=== PATIENT | female | born 1935 | race Caucasian/White ===

== ENCOUNTER 2016-05-13 17:25 | Inpatient (IN) | payer OTHER ==
--- NOTE | 2016-05-13 17:29 | PDOC ---
History of Present Illness <Harpreet Castillo - Last Filed: 05/13/16 17:28> - General History Source: Spouse (.) Exam Limitations: Language Barrier - History of Present Illness Initial Comments: 05/13/16 18:37 The patient is a 81 year old female, BIBA, with a significant past medical history of afib (on eliquis), HTN, hypercholesterolemia, kidney stones, COPD, thyroid disease, CAD s/p stent, who presents to the emergency department with SOB and cough for about 2 days. notes the patient has had difficulty breathing. notes being sick with a cough recently, now resolved. She denies any chest pain. She denies fever, chills, headache and dizziness. She denies nausea, vomit, diarrhea and constipation. Patient is kazakh speaking. Allergies: As per Nursing notes Social history: Nonsmoker. PCP: <Kevin Huitron - Last Filed: 05/13/16 18:46> <Milton Tijerina - Last Filed: 05/14/16 19:06> - General Stated Complaint: SHORTNESS OF BREATH Time Seen by Provider: 05/13/16 17:27 Past History - Past Medical History Cardiac Disorders: Yes (A-FIB) HTN: Yes Hypercholesterolemia: Yes Kidney Stones: Yes Thyroid Disease: Yes - Surgical History Appendectomy: Yes - Psycho/Social/Smoking Cessation Hx Anxiety: No Suicidal Ideation: No Smoking Status: No Smoking History: Never smoked Number of Cigarettes Smoked Daily: 0 Hx Alcohol Use: No Drug/Substance Use Hx: No Substance Use Type: None <Harpreet Castillo - Last Filed: 05/13/16 17:28> <Kevin Huitron - Last Filed: 05/13/16 18:46> <Milton Tijerina - Last Filed: 05/14/16 19:06> - Past Medical History Allergies/Adverse Reactions: Allergies Allergy/AdvReac Type Severity Reaction Status Date / Time shrimp Allergy Verified 05/13/16 17:41 IV DYE Allergy Uncoded 05/13/16 17:41 SHRIMP Allergy Uncoded 05/13/16 17:41 Home Medications: Ambulatory Orders Aspirin [ASA -] 81 mg PO DAILY 11/20/13 Methimazole 10 mg PO DAILY 11/20/13 Apixaban [Eliquis] 5 mg PO BID 01/15/16 Digoxin [Lanoxin -] 0.125 mg PO DAILY tablet 01/24/16 Chlorthalidone 25 mg PO DAILY 05/13/16 Metoprolol Succinate [Toprol XL -] 100 mg PO BID 05/13/16 Rosuvastatin Calcium [Crestor] 5 mg PO HS 05/13/16 Review of Systems - Review of Systems Able to Perform ROS?: Yes Comments:: 05/13/16 18:37 GENERAL/CONSTITUTIONAL: No fever or chills. No weakness. HEAD, EYES, EARS, NOSE AND THROAT: No change in vision. No ear pain or discharge. No sore throat. CARDIOVASCULAR: No chest pain Yes: shortness of breath and cough. RESPIRATORY: No cough, wheezing, or hemoptysis. GASTROINTESTINAL: No nausea, vomiting, diarrhea or constipation. GENITOURINARY: No dysuria, frequency, or change in urination. MUSCULOSKELETAL: No joint or muscle swelling or pain. No neck or back pain. SKIN: No rash NEUROLOGIC: No headache, vertigo, loss of consciousness, or change in strength/ sensation. ENDOCRINE: No increased thirst. No abnormal weight change. HEMATOLOGIC/LYMPHATIC: No anemia, easy bleeding, or history of blood clots. ALLERGIC/IMMUNOLOGIC: No hives or skin allergy. <Kevin Huitron - Last Filed: 05/13/16 18:46> *Physical Exam - Physical Exam Comments: 05/13/16 18:46 GENERAL: Awake, alert, and fully oriented, in no acute distress HEAD: No signs of trauma EYES: PERRLA, EOMI, sclera anicteric, conjunctiva clear ENT: Auricles normal inspection, hearing grossly normal, nares patent, oropharynx clear without exudates. Moist mucosa NECK: (+)JVD. Normal ROM, supple, no lymphadenopathy. LUNGS: Fine crackles posteriorly and wheezing throughout all lung calderon. HEART: Regular rate and rhythm, normal S1 and S2, no murmurs, rubs or gallops ABDOMEN: Soft, nontender, normoactive bowel sounds. No guarding, no rebound. No masses EXTREMITIES: Normal range of motion, no edema. No clubbing or cyanosis. No cords, erythema, or tenderness NEUROLOGICAL: Cranial nerves II through XII grossly intact. Normal speech, normal gait SKIN: Warm, Dry, normal turgor, no rashes or lesions noted. <[place],Kevin - Last Filed: 05/13/16 18:46> - Vital Signs Last Vital Signs Temp Pulse Resp BP Pulse Ox 99.9 F H 115 H 30 H 156/86 100 05/13/16 20:40 05/13/16 20:25 05/13/16 20:25 05/13/16 20:25 05/13/16 20:25 <Milton Tijerina - Last Filed: 05/14/16 19:06> ED Treatment Course - LABORATORY CBC & Chemistry Diagram: 05/14/16 06:00 05/14/16 06:00 - ADDITIONAL ORDERS Additional order review: Laboratory Results 05/13/16 05/13/16 05/13/16 20:48 20:48 20:48 INR 1.48 H Sodium 140 Potassium 3.9 Chloride 102 Carbon Dioxide 29 Anion Gap 9 BUN 21 H Creatinine 0.8 Creat Clearance w eGFR > 60 Random Glucose 124 H Lactic Acid Calcium 9.0 Magnesium Total Bilirubin 0.5 D AST 20 D ALT 18 D Alkaline Phosphatase 96 Creatine Kinase 46 Troponin I < 0.02 B-Natriuretic Peptide 2686.74 H Total Protein 6.7 Albumin 3.6 Blood Type Antibody Screen Spec Expiration Date 05/13/16 05/13/16 05/13/16 19:10 19:10 19:10 INR Sodium Cancelled Potassium Cancelled Chloride Cancelled Carbon Dioxide Cancelled Anion Gap Cancelled BUN Cancelled Creatinine Cancelled Creat Clearance w eGFR Cancelled Random Glucose Cancelled Lactic Acid 0.915 Calcium Cancelled Magnesium Cancelled Total Bilirubin Cancelled AST Cancelled ALT Cancelled Alkaline Phosphatase Cancelled Creatine Kinase Cancelled Troponin I Cancelled B-Natriuretic Peptide Cancelled Total Protein Cancelled Albumin Cancelled Blood Type Cancelled Antibody Screen Cancelled Spec Expiration Date Cancelled 05/13/16 19:10 INR 1.59 H Sodium Potassium Chloride Carbon Dioxide Anion Gap BUN Creatinine Creat Clearance w eGFR Random Glucose Lactic Acid Calcium Magnesium Total Bilirubin AST ALT Alkaline Phosphatase Creatine Kinase Troponin I B-Natriuretic Peptide Total Protein Albumin Blood Type Antibody Screen Spec Expiration Date 05/13/16 19:10 RBC 4.18 MCV 89.0 MCHC 32.9 RDW 14.2 MPV 8.9 Neutrophils % 61.4 D Lymphocytes % 22.4 D Monocytes % 10.5 H D Eosinophils % 3.7 D Basophils % 2.0 - RADIOLOGY Radiology Studies Ordered: Category Date Time Status CHEST X-RAY PORTABLE* [RAD] Stat Radiology 05/13/16 20:16 Taken - Medications Given in the ED: ED Medications Discontinued Medications Generic Name Dose Route Start Last Admin Trade Name Larry PRN Reason Stop Dose Admin Albuterol/Ipratropium 1 amp 05/13/16 18:46 05/13/16 20:12 Duoneb - NEB 05/13/16 18:47 1 amp ONCE ONE Administration Albuterol/Ipratropium 1 amp 05/13/16 20:16 05/13/16 20:37 Duoneb - NEB 05/13/16 20:17 1 amp ONCE STA Administration Albuterol/Ipratropium 1 amp 05/13/16 20:16 05/13/16 20:37 Duoneb - NEB 05/13/16 20:17 1 amp ONCE STA Administration Sodium Chloride 500 mls @ 500 mls/hr 05/13/16 18:44 05/13/16 20:12 Normal Saline - IV 05/13/16 19:43 500 mls/hr ASDIR STA Administration Magnesium Sulfate 1 gm 05/13/16 20:16 05/13/16 20:37 Magnesium Sulfate IVPB 05/13/16 20:17 1 gm ONCE ONE Administration Magnesium Sulfate 1 gm 05/13/16 20:25 05/13/16 20:37 Magnesium Sulfate IVPB 05/13/16 20:26 1 gm ONCE ONE Administration Methylprednisolone Sodium Succinate 125 mg 05/13/16 18:46 05/13/16 20:12 Solu-Medrol - IVPUSH 05/13/16 18:47 125 mg ONCE ONE Administration <Milton Tijerina - Last Filed: 05/14/16 19:06> *DC/Admit/Observation/Transfer <Harpreet Castillo - Last Filed: 05/13/16 17:28> - Attestations Scribe Attestion: 05/13/16 17:39 Documentation prepared by Kevin Huitron, acting as medical director/head team physician for Harpreet Castillo DO. <Kevin Huitron - Last Filed: 05/13/16 18:46> <Milton Tijerina - Last Filed: 05/14/16 19:06> Diagnosis at time of Disposition: Shortness of breath, Chest pain - Referrals
[2016-05-13 17:42] VITALS: BMI 26.4
[2016-05-13] MEDS ORDERED: SODIUM CHLORIDE 500 ML IV STA (18:44)
[2016-05-13] MEDS ORDERED: methylPREDNISolone NA SUCC 125 MG/2 ML VIAL IVPUSH ONE (18:46)
[2016-05-13] MEDS ORDERED: ALBUTEROL SO4 2.5/IPRATROPIUM 0.5 INH SOL 3 ML VIAL.NEB. NEB ONE ×2 (18:46→19:56)
[2016-05-13 19:20] LABS: EOSINOPHIL 3.7 % (0-4.5); MCH 29.3 pg (25.7-33.7); MCHC 32.9 g/dl (32.0-36.0); MEAN PLT VOLUME 8.9 fl (7.5-11.1); NEUTROPHILS 61.4 % (42.8-82.8); PLATELET COUNT 232 K/MM3 (134-434); RDW 14.2 % (11.6-15.6); WHITE BLOOD COUNT 6.8 K/mm3 (4.0-10.0)
[2016-05-13 19:32] LABS: INR 1.59 (0.82-1.09); PROTHROMBIN TIME (PATIENT) 17.7 SEC (9.98-11.88)
[2016-05-13] MEDS ORDERED: methylPREDNISolone NA SUCC 125 MG/2 ML VIAL ONE (19:57)
[2016-05-13] MEDS ORDERED: MAGNESIUM SULF 50% (8.12 MEQ/2 ML-1 GM VIAL) IVPB ONE ×2 (20:16→20:25)
[2016-05-13] MEDS ORDERED: ALBUTEROL SO4 2.5/IPRATROPIUM 0.5 INH SOL 3 ML VIAL.NEB. NEB STA ×2 (20:16)
[2016-05-13] MEDS ORDERED: MAGNESIUM SULF 50% (8.12 MEQ/2 ML-1 GM VIAL) ONE (20:22)
[2016-05-13 21:21] LABS: INR 1.48 (0.82-1.09); PROTHROMBIN TIME (PATIENT) 16.4 SEC (9.98-11.88)
[2016-05-13 21:41] LABS: ALBUMIN 3.6 g/dl (3.4-5.0); ANION GAP 9 (8-16); BILIRUBIN,TOTAL 0.5 mg/dL (0.2-1.0); CO2 29 mmol/L (21-32); CREATININE 0.8 mg/dL (0.55-1.02); GLUCOSE,RANDOM 124 mg/dL (74-106); SGOT/AST 20 U/L (15-37); SGPT/ALT 18 U/L (12-78); TOT PROT 6.7 g/dl (6.4-8.2)
[2016-05-13 21:44] LABS: ALK PHOS 96 U/L (45-117); TROPONIN I < 0.02 ng/ml (0.00-0.05)
[2016-05-13] MEDS ORDERED: FUROSEMIDE 40 MG/4 ML INJECTABLE VIAL IVPUSH ONE (22:21)
--- NOTE | 2016-05-13 22:44 | PDOC ---
*Physical Exam - Vital Signs Last Vital Signs Temp Pulse Resp BP Pulse Ox 99.9 F H 115 H 30 H 156/86 100 05/13/16 20:40 05/13/16 20:25 05/13/16 20:25 05/13/16 20:25 05/13/16 20:25 ED Treatment Course - LABORATORY CBC & Chemistry Diagram: 05/13/16 19:10 05/13/16 20:48 - ADDITIONAL ORDERS Additional order review: Laboratory Results 05/13/16 05/13/16 05/13/16 20:48 20:48 20:48 INR 1.48 H Sodium 140 Potassium 3.9 Chloride 102 Carbon Dioxide 29 Anion Gap 9 BUN 21 H Creatinine 0.8 Creat Clearance w eGFR > 60 Random Glucose 124 H Lactic Acid Calcium 9.0 Magnesium Total Bilirubin 0.5 D AST 20 D ALT 18 D Alkaline Phosphatase 96 Creatine Kinase 46 Troponin I < 0.02 B-Natriuretic Peptide 2686.74 H Total Protein 6.7 Albumin 3.6 Blood Type Antibody Screen Spec Expiration Date 05/13/16 05/13/16 05/13/16 19:10 19:10 19:10 INR Sodium Cancelled Potassium Cancelled Chloride Cancelled Carbon Dioxide Cancelled Anion Gap Cancelled BUN Cancelled Creatinine Cancelled Creat Clearance w eGFR Cancelled Random Glucose Cancelled Lactic Acid 0.915 Calcium Cancelled Magnesium Cancelled Total Bilirubin Cancelled AST Cancelled ALT Cancelled Alkaline Phosphatase Cancelled Creatine Kinase Cancelled Troponin I Cancelled B-Natriuretic Peptide Cancelled Total Protein Cancelled Albumin Cancelled Blood Type Cancelled Antibody Screen Cancelled Spec Expiration Date Cancelled 05/13/16 19:10 INR 1.59 H Sodium Potassium Chloride Carbon Dioxide Anion Gap BUN Creatinine Creat Clearance w eGFR Random Glucose Lactic Acid Calcium Magnesium Total Bilirubin AST ALT Alkaline Phosphatase Creatine Kinase Troponin I B-Natriuretic Peptide Total Protein Albumin Blood Type Antibody Screen Spec Expiration Date 05/13/16 19:10 RBC 4.18 MCV 89.0 MCHC 32.9 RDW 14.2 MPV 8.9 Neutrophils % 61.4 D Lymphocytes % 22.4 D Monocytes % 10.5 H D Eosinophils % 3.7 D Basophils % 2.0 - RADIOLOGY Radiology Studies Ordered: Category Date Time Status CHEST X-RAY PORTABLE* [RAD] Stat Radiology 05/13/16 20:16 Taken - Medications Given in the ED: ED Medications Discontinued Medications Generic Name Dose Route Start Last Admin Trade Name Larry PRN Reason Stop Dose Admin Albuterol/Ipratropium 1 amp 05/13/16 18:46 05/13/16 20:12 Duoneb - NEB 05/13/16 18:47 1 amp ONCE ONE Administration Albuterol/Ipratropium 1 amp 05/13/16 20:16 05/13/16 20:37 Duoneb - NEB 05/13/16 20:17 1 amp ONCE STA Administration Albuterol/Ipratropium 1 amp 05/13/16 20:16 05/13/16 20:37 Duoneb - NEB 05/13/16 20:17 1 amp ONCE STA Administration Sodium Chloride 500 mls @ 500 mls/hr 05/13/16 18:44 05/13/16 20:12 Normal Saline - IV 05/13/16 19:43 500 mls/hr ASDIR STA Administration Magnesium Sulfate 1 gm 05/13/16 20:16 05/13/16 20:37 Magnesium Sulfate IVPB 05/13/16 20:17 1 gm ONCE ONE Administration Magnesium Sulfate 1 gm 05/13/16 20:25 05/13/16 20:37 Magnesium Sulfate IVPB 05/13/16 20:26 1 gm ONCE ONE Administration Methylprednisolone Sodium Succinate 125 mg 05/13/16 18:46 05/13/16 20:12 Solu-Medrol - IVPUSH 05/13/16 18:47 125 mg ONCE ONE Administration *DC/Admit/Observation/Transfer Diagnosis at time of Disposition: Shortness of breath, Chest pain - Discharge Dispostion Condition at time of disposition: Stable Admit: Yes - Referrals Referrals: Selvin Rios MD [Primary Care Provider] - - Patient Instructions - Post Discharge Activity
[2016-05-13] MEDS ORDERED: FUROSEMIDE 40 MG/4 ML INJECTABLE VIAL ONE (22:50)
[2016-05-13] MEDS ORDERED: ACETAMINOPHEN 325 MG TABLET (FP) PO PRN (23:08)
[2016-05-14] MEDS: ALBUTEROL SO4 2.5/IPRATROPIUM 0.5 INH SOL 3 ML VIAL.NEB. NEB SCH ×4 (00:50→18:07)
[2016-05-14] MEDS ORDERED: dilTIAZem HCL 50 MG/10 ML - 10 ML VIAL IVPUSH ONE (02:30)
[2016-05-14] MEDS ORDERED: dilTIAZem HCL 125 MG/25 ML - 25 ML VIAL ONE (02:36)
[2016-05-14] MEDS ORDERED: ALBUTEROL SO4 2.5/IPRATROPIUM 0.5 INH SOL 3 ML VIAL.NEB. NEB ONE ×3 (06:14→17:11)
[2016-05-14 07:17] LABS: BASOPHIL 0.2 % (0-2.0); MCH 29.5 pg (25.7-33.7); MCHC 33.5 g/dl (32.0-36.0); MEAN CELL VOLUME 88.1 fl (80-96); MEAN PLT VOLUME 8.5 fl (7.5-11.1); NEUTROPHILS 89.2 % (42.8-82.8); PLATELET COUNT 221 K/MM3 (134-434); RDW 14.4 % (11.6-15.6); WHITE BLOOD COUNT 7.3 K/mm3 (4.0-10.0)
[2016-05-14 07:40] LABS: ALBUMIN 3.5 g/dl (3.4-5.0); BILIRUBIN,TOTAL 0.6 mg/dL (0.2-1.0); CALCIUM 8.7 mg/dL (8.5-10.1); MAGNESIUM 1.9 mg/dL (1.8-2.4); TOT PROT 6.7 g/dl (6.4-8.2)
--- NOTE | 2016-05-14 09:20 | CON.CARD ---
Cardiology Consult (text) - Consultation Consultation Note: CC: sob, cough hpi: 81 yo f with h/o CAD s/p pRCA BETHANIE 09/2011 for unstable angina (CP/EDWARDS) and later BETHANIE to pLAD and mLAD 10/2011, paroxysmal atrial fibrillation, HTN, HL, diastolic dysfunction, Mild AR/MR, mild pHTN who presents with sob/cough. Past two days with cough and sob. No cp, palps, dizzy, loc, pnd, orthopnea, le edema. Went to pmd yesterday and sent to ER for eval for PNA/URI. Sleeve Ironer: Dr. Weir PMHx: per hpi. Additionally MGUS, COPD by PFTs (mild obstructive disease-not on inhalers), IGT, gastritis/GERD, multinodular goiter, pancreatic cyst, kidney stones Past surg hx: per hpi fam hx: No fam hx of cardiac disease social hx: never tob, no etoh or illicits ros: per hpi; no nvd, fever, quesada, vision changes, hematuria, gib, muscle pain meds: Ambulatory Orders Aspirin [ASA -] 81 mg PO DAILY 11/20/13 Methimazole 10 mg PO DAILY 11/20/13 Apixaban [Eliquis] 5 mg PO BID 01/15/16 Digoxin [Lanoxin -] 0.125 mg PO DAILY tablet 01/24/16 Chlorthalidone 25 mg PO DAILY 05/13/16 Metoprolol Succinate [Toprol XL -] 100 mg PO BID 05/13/16 Rosuvastatin Calcium [Crestor] 5 mg PO HS 05/13/16 pe: Vital Signs Period Temp Pulse Resp BP Sys/Padilla Pulse Ox Last 24 Hr 97.7 F-99.9 F 72-147 20-30 94-156/60-102 92-100 NAD, calm JVD flat, neck supple cta bl nl eff irregular rhythm, tachycardic. nl s1, s2 No m/r/g + bs soft nt nd, obese ext without e/c/c no jaundice, diaphoresis aaox3 pos dp pt no carotid bruits Laboratory Last Values WBC 7.3 K/mm3 (4.0-10.0) 05/14/16 06:00 RBC 4.04 M/mm3 (3.60-5.2) 05/14/16 06:00 Hgb 11.9 GM/dL (10.7-15.3) 05/14/16 06:00 Hct 35.6 % (32.4-45.2) 05/14/16 06:00 MCV 88.1 fl (80-96) 05/14/16 06:00 MCHC 33.5 g/dl (32.0-36.0) 05/14/16 06:00 RDW 14.4 % (11.6-15.6) 05/14/16 06:00 Plt Count 221 K/MM3 (134-434) 05/14/16 06:00 MPV 8.5 fl (7.5-11.1) 05/14/16 06:00 Neutrophils % 89.2 % (42.8-82.8) H D 05/14/16 06:00 Lymphocytes % 9.6 % (8-40) D 05/14/16 06:00 Monocytes % 1.0 % (3.8-10.2) L D 05/14/16 06:00 Eosinophils % 0.0 % (0-4.5) D 05/14/16 06:00 Basophils % 0.2 % (0-2.0) 05/14/16 06:00 INR 1.48 (0.82-1.09) H 05/13/16 20:48 Sodium 138 mmol/L (136-145) 05/14/16 06:00 Potassium 3.2 mmol/L (3.5-5.1) L 05/14/16 06:00 Chloride 98 mmol/L (98-107) 05/14/16 06:00 Carbon Dioxide 28 mmol/L (21-32) 05/14/16 06:00 Anion Gap 12 (8-16) 05/14/16 06:00 BUN 22 mg/dL (7-18) H 05/14/16 06:00 Creatinine 1.0 mg/dL (0.55-1.02) D 05/14/16 06:00 Creat Clearance w eGFR 53.21 (>60) 05/14/16 06:00 Random Glucose 248 mg/dL (74-106) H D 05/14/16 06:00 Lactic Acid 0.915 mmol/L (0.4-2.0) 05/13/16 19:10 Calcium 8.7 mg/dL (8.5-10.1) 05/14/16 06:00 Magnesium 1.9 mg/dL (1.8-2.4) 05/14/16 06:00 Total Bilirubin 0.6 mg/dL (0.2-1.0) 05/14/16 06:00 AST 13 U/L (15-37) L D 05/14/16 06:00 ALT 17 U/L (12-78) 05/14/16 06:00 Alkaline Phosphatase 92 U/L (45-117) 05/14/16 06:00 Creatine Kinase 46 IU/L (26-192) 05/13/16 20:48 Troponin I < 0.02 ng/ml (0.00-0.05) 05/13/16 20:48 B-Natriuretic Peptide 2686.74 pg/ml (5-450) H 05/13/16 20:48 Total Protein 6.7 g/dl (6.4-8.2) 05/14/16 06:00 Albumin 3.5 g/dl (3.4-5.0) 05/14/16 06:00 TSH 0.99 uIU/ml (0.358-3.74) D 05/14/16 06:00 Blood Type Cancelled 05/13/16 19:10 Antibody Screen Cancelled 05/13/16 19:10 Spec Expiration Date Cancelled 05/13/16 19:10 EKG 05/13/16: Afib, VR 127, nl qtc, non-specific ST changes. Similar to priors when in RVR. cxr: clear lungs Echo 08/2015: Nl lv/rv. EF 65-70%. E to A reversal. Mild Lae. 1+ AR/MR. No RVSP Pharm Stress MPI 2015: No ischemia. Nl EF. PFTs 2014: FEV1/FVC normal, mildly decreased FEV1, decreased FVC, normal TLC, mildly decreased DLCO consistent with obstructive process, possible emphysema Cath/PCI 09/2011: pRCA 80-90% -->BETHANIE, mLAD 60-70%, dLAD 60-70% + FFR, D1 mild diffuse disease Cath/PCI 10/2011: pLAD rota BETHANIE and mLAD rota BETHANIE. 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 sob, cough: -does not appear grossly vol overloaded on exam or imaging -can cont with trial of low dose iv lasix to see if helps sob, monitor daily chem7, low threshold to dc lasix if appears dry/prerenal. has not needed maintenance lasix at home. -consider URI? as another etiology of current sob/cough paroxysmal Atrial fibrillation: -in afib here with occasional rvr, cont toprol and monitor on tele. was getting 200 qam and 100 qhs at home recently so may need to increase to this if hr remains fast - cont dig as well - cont eliquis CAD s/p stent x 3: - no cp, no signs acs - cont home statin, asa, bb Hypertension: - cont home bb - holding home chlorthalidone 25 qd while getting iv lasix Hyperlipidemia, - continue crestor. 1+ MR/AR: - No signs of valvular decompensation
[2016-05-14] MEDS ORDERED: FUROSEMIDE 40 MG/4 ML INJECTABLE VIAL IVPB SCH (10:00)
--- NOTE | 2016-05-14 10:29 | EKG ---
Test Reason : Blood Pressure : / mmHG Vent. Rate : 138 BPM Atrial Rate : 166 BPM P-R Int : 000 ms QRS Dur : 066 ms QT Int : 292 ms P-R-T Axes : 000 041 -81 degrees QTc Int : 442 ms ATRIAL FIBRILLATION WITH RAPID VENTRICULAR RESPONSE NONSPECIFIC ST AND T WAVE ABNORMALITY ABNORMAL ECG WHEN COMPARED WITH ECG OF 13-MAY-2016 21:52, T WAVE INVERSION NO LONGER EVIDENT IN ANTERIOR LEADS Confirmed by JACKI ALTMAN, BETH ([id number]) on 05/14/2016 10:29:24 AM Referred By: Confirmed By:BETH ECHEVERRIA MD
--- NOTE | 2016-05-14 10:35 | EKG ---
Test Reason : Blood Pressure : / mmHG Vent. Rate : 127 BPM Atrial Rate : 166 BPM P-R Int : 000 ms QRS Dur : 070 ms QT Int : 264 ms P-R-T Axes : 000 040 248 degrees QTc Int : 383 ms ATRIAL FIBRILLATION WITH RAPID VENTRICULAR RESPONSE ABNORMAL ECG WHEN COMPARED WITH ECG OF 15-JAN-2016 10:05, NO SIGNIFICANT CHANGE WAS FOUND Confirmed by BETH ECHEVERRIA MD ([id number]) on 05/14/2016 10:34:30 AM Referred By: Confirmed By:BETH ECHEVERRIA MD
[2016-05-14] MEDS: ASPIRIN 81 MG CHEWABLE TABLETS PO SCH (10:53)
[2016-05-14] MEDS: APIXABAN 5 MG TABLET PO SCH ×2 (10:53→22:22)
[2016-05-14] MEDS: PANTOPRAZOLE 40 MG TABLET (FP) PO SCH (10:53)
[2016-05-14] MEDS: DIGOXIN 0.125 MG TABLET (FP) PO SCH (10:53)
[2016-05-14] MEDS: METHIMAZOLE 10 MG TABLET (FP) PO SCH (10:54)
[2016-05-14] MEDS: METOPROLOL SUCCINATE 100 MG TAB.SR.24H (FP) PO SCH ×2 (10:54→22:22)
--- NOTE | 2016-05-14 11:49 | HP ---
Admitting History and Physical - Primary Care Physician PCP: Selvin Rios - Admission Chief Complaint: Wheezing History of Present Illness: Ms Cartagena is a very pleasant 81 year old female who comes in with shortness of breath and wheezing. She says it began about two days ago. She had an unproductive cough with this. She was short of breath at rest and with exertion. She hears wheezing when breathing. She denies sick contacts, fevers, chills, chest pain, abdominal pain, nausea, vomiting, diarrhea, constipation, difficulty or pain on urination, or swelling. Currently she is feeling improved. History Source: Patient, Family Member Limitations to Obtaining History: Language Barrier - Past Medical History Cardiovascular: Yes: AFIB, CAD, HTN, Hyperlipdemia Gastrointestinal: Yes: Gastritis, GERD. No: GI Bleed, Peptic Ulcer Disease Endocrine: Yes: Hyperthyroidism - Past Surgical History Past Surgical History: Yes: None - Smoking History Smoking history: Never smoked Aproximately how many cigarettes per day: 0 - Alcohol/Substance Use Hx Alcohol Use: No History of Substance Use: reports: None - Social History Usual Living Arrangement: Yes: With Spouse ADL: Independent History of Recent Travel: No Home Medications - Allergies Allergies/Adverse Reactions: Allergies Allergy/AdvReac Type Severity Reaction Status Date / Time shrimp Allergy Verified 05/13/16 17:41 IV DYE Allergy Uncoded 05/13/16 17:41 SHRIMP Allergy Uncoded 05/13/16 17:41 - Home Medications Home Medications: Ambulatory Orders Aspirin [ASA -] 81 mg PO DAILY 11/20/13 Methimazole 10 mg PO DAILY 11/20/13 Apixaban [Eliquis] 5 mg PO BID 01/15/16 Digoxin [Lanoxin -] 0.125 mg PO DAILY tablet 01/24/16 Chlorthalidone 25 mg PO DAILY 05/13/16 Metoprolol Succinate [Toprol XL -] 100 mg PO BID 05/13/16 Rosuvastatin Calcium [Crestor] 5 mg PO HS 05/13/16 Family Disease History - Family Disease History Family History: Unremarkable Review of Systems Findings/Remarks: Full review of systems obtained, as per HPI and otherwise negative Physical Examination Vital Signs: Vital Signs Temperature 98.5 F 05/14/16 05:15 Pulse Rate 116 H 05/14/16 06:00 Respiratory Rate 20 05/14/16 06:00 Blood Pressure 129/77 05/14/16 06:00 O2 Sat by Pulse Oximetry (%) 100 05/14/16 06:00 Constitutional: Yes: Well Nourished, No Distress, Calm Eyes: Yes: Conjunctiva Clear, EOM Intact HENT: Yes: Atraumatic, Normocephalic Cardiovascular: Yes: Tachycardia, Pulse Irregular. No: Gallop, Murmur, Rub Respiratory: Yes: Regular, Wheezes. No: Rales, Rhonchi Gastrointestinal: Yes: Normal Bowel Sounds, Soft. No: Distention, Tenderness Extremities: Yes: WNL Edema: No Labs: CBC, BMP 05/14/16 06:00 05/14/16 06:00 Problem List - Problems (1) COPD (chronic obstructive pulmonary disease) Assessment/Plan: -patient presents with acute exacerbation -admit to the hospital -will hold on antibiotics at this time -will check influenza and respiratory viral panel -pulmonary consult -continue duonebs -pulmonary consulted and decide on steroids Code(s): J44.9 - CHRONIC OBSTRUCTIVE PULMONARY DISEASE, UNSPECIFIED Qualifiers : COPD type: COPD with acute exacerbation Qualified Code(s): J44.1 - Chronic obstructive pulmonary disease with (acute) exacerbation (2) Atrial fibrillation with rapid ventricular response Assessment/Plan: -cardiology consulted -continue digoxin and toprol xl -continue eliquis Code(s): I48.91 - UNSPECIFIED ATRIAL FIBRILLATION (3) HLD (hyperlipidemia) Assessment/Plan: -continue crestor Code(s): E78.5 - HYPERLIPIDEMIA, UNSPECIFIED (4) HTN (hypertension) Assessment/Plan: -continue toprol xl Code(s): I10 - ESSENTIAL (PRIMARY) HYPERTENSION (5) Hyperthyroidism Assessment/Plan: -continue tapazole -check TSH and FT4 Code(s): E05.90 - THYROTOXICOSIS, UNSP WITHOUT THYROTOXIC CRISIS OR STORM
--- NOTE | 2016-05-14 14:17 | PN ---
Progress Note (short form) - Note Progress Note: PULMONARY CONSULTATION DICTATED 05/14/16 IMP ASTHMATIC BRONCHITIS CHF COPD BY PFTS AFIB ASHD S/P STENT PULMONARY HTN MGUS PLAN IV STEROIDS INHALED BRONCHODILATORS LASIX ANTICOAGULATION O2 RATE CONTROL DR BUSTOS Problem List - Problems (1) Shortness of breath Code(s): R06.02 - SHORTNESS OF BREATH (2) ASHD (arteriosclerotic heart disease) Code(s): I25.10 - ATHSCL HEART DISEASE OF [place] CORONARY ARTERY W/O ANG PCTRS (3) Afib Code(s): I48.91 - UNSPECIFIED ATRIAL FIBRILLATION (4) Atrial fibrillation with rapid ventricular response Code(s): I48.91 - UNSPECIFIED ATRIAL FIBRILLATION (5) HLD (hyperlipidemia) Code(s): E78.5 - HYPERLIPIDEMIA, UNSPECIFIED (6) HTN (hypertension) Code(s): I10 - ESSENTIAL (PRIMARY) HYPERTENSION (7) Asthmatic bronchitis Code(s): J45.909 - UNSPECIFIED ASTHMA, UNCOMPLICATED (8) COPD (chronic obstructive pulmonary disease) Code(s): J44.9 - CHRONIC OBSTRUCTIVE PULMONARY DISEASE, UNSPECIFIED
[2016-05-14] MEDS: methylPREDNISolone NA SUCC 40 MG/1 ML VIAL IVPB SCH ×2 (16:00→21:22)
--- NOTE | 2016-05-14 16:02 | CONS ---
PULMONARY CONSULTATION DATE OF CONSULTATION: 05/14/2016 REFERRING PHYSICIAN: Glenn Cummings MD The patient is an 81-year-old white female with a past medical history of atrial fibrillation maintained on Eliquis, hypercholesterolemia, hypertension, kidney stones, questionable obstructive airway disease, thyroid disease, ASHD status post stent, admitted to [facility] on May 13 with complaint of 2-day history of increasing shortness of breath, cough, and bronchospasm. Patient denies any complaints of chest pain, nausea, vomiting, or diaphoresis. Did complain of a cough which is productive of clear sputum. Denied hemoptysis. She presented to the emergency room with the above. In the ER, she was found to be in moderate respiratory distress. At the time, she was placed on inhaled bronchodilators and IV steroids with good clinical response. She denies any history of asthma. Denies any history of tobacco use. There is no history of occupational exposure to chemicals or fumes. She denies any recent travel. Note: She apparently had PFTs as an outpatient which revealed mild obstruction. PAST MEDICAL HISTORY: Again includes ASHD status post stent, unstable angina, paroxysmal atrial fibrillation, hypertension, hyperlipidemia, diastolic dysfunction, mild AR, MR, pulmonary hypertension as well as MGUS and COPD by PFTs. REVIEW OF SYSTEMS: Positive cough. Positive bronchospasm. No chest pain, palpitations. Positive for shortness of breath. No fevers. No chills. No hemoptysis. No abdominal pain. CURRENT MEDICATIONS: Include Eliquis, Tylenol, Tapazole, DuoNeb, Crestor, Lasix , aspirin, Protonix, and Lanoxin. PHYSICAL EXAMINATION: GENERAL: The patient is an elderly white female, well developed, well nourished , awake, alert, in no acute distress. VITAL SIGNS: She is currently afebrile. Heart rate is 116 and irregular. Blood pressure 129/77, respiratory rate is 20. O2 saturation is 96% on 2 L nasal cannula. HEENT: Normocephalic, atraumatic. NECK: Supple. HEART: Irregular/irregular. Normal S1, S2. CHEST: Scattered bilateral wheezes. ABDOMEN: Soft bowel sounds are positive. EXTREMITIES: No cyanosis or edema. LABORATORY DATA: WBC 7.3, hemoglobin 11.9, hematocrit 35.6, platelet count of 221,000. INR is 1.48. BUN 22, creatinine 1.0. BNP is 2686. Chest x-ray: No acute infiltrates and/or effusions. IMPRESSION: 1. Cough, bronchospasm, dyspnea, most likely secondary to asthmatic bronchitis. 2. Chronic congestive heart failure as noted by elevated BNP. 3. Atrial fibrillation. 4. Pulmonary hypertension. 5. Atherosclerotic heart disease status post stent. 6. History of monoclonal gammopathy of undetermined significance (MGUS). PLAN: IV steroids for 48 hours, inhaled bronchodilators, supplemental O2, Lasix, rate control. . Supplemental O2. We will follow closely with you. CHASE BUSTOS M.D. [id number] MTDD
[2016-05-14] MEDS ORDERED: ACETAMINOPHEN 325 MG TABLET (FP) ONE (16:31)
[2016-05-14] MEDS ORDERED: methylPREDNISolone NA SUCC 40 MG/1 ML VIAL ONE ×2 (17:11→21:41)
[2016-05-14] MEDS ORDERED: METOPROLOL SUCCINATE 50 MG TAB.SR.24H (FP) ONE (21:41)
[2016-05-14] MEDS ORDERED: ROSUVASTATIN CA 5 MG TABLET (FP) PO SCH (22:00)
[2016-05-15] MEDS ORDERED: methylPREDNISolone NA SUCC 40 MG/1 ML VIAL ONE (02:36)
[2016-05-15] MEDS: methylPREDNISolone NA SUCC 40 MG/1 ML VIAL IVPB SCH ×3 (02:37→22:31)
[2016-05-15] MEDS ORDERED: ASPIRIN 325 MG TABLET ONE (05:08)
[2016-05-15 06:57] LABS: BASOPHIL 0.2 % (0-2.0); MCH 29.3 pg (25.7-33.7); MCHC 33.3 g/dl (32.0-36.0); MEAN PLT VOLUME 8.4 fl (7.5-11.1); NEUTROPHILS 92.5 % (42.8-82.8); PLATELET COUNT 266 K/MM3 (134-434); RDW 13.9 % (11.6-15.6); WHITE BLOOD COUNT 17.5 K/mm3 (4.0-10.0)
[2016-05-15] MEDS: ALBUTEROL SO4 2.5/IPRATROPIUM 0.5 INH SOL 3 ML VIAL.NEB. NEB SCH ×2 (07:00→12:04)
[2016-05-15 07:39] LABS: CALCIUM 9.1 mg/dL (8.5-10.1); CREATININE 1.4 mg/dL (0.55-1.02); PHOSPHOROUS 3.3 mg/dL (2.5-4.9)
[2016-05-15 07:47] LABS: THYROID STIMULATING HORMONE 0.73 uIU/ml (0.358-3.74)
[2016-05-15] MEDS ORDERED: METOPROLOL SUCCINATE 50 MG TAB.SR.24H (FP) PO SCH (10:00)
--- NOTE | 2016-05-15 11:06 | PN ---
Progress Note (short form) - Note Progress Note: s: sob and cough a little better today, no cp palps dizzy o: Vital Signs Period Temp Pulse Resp BP Sys/Padilla Pulse Ox Last 24 Hr 97.8 F-98.0 F 114-168 20-20 128-158/72-86 99-100 NAD, calm JVD flat, neck supple cta bl nl eff irregular rhythm, tachycardic. nl s1, s2 No m/r/g + bs soft nt nd, obese ext without e/c/c no jaundice, diaphoresis aaox3 Current Medications Generic Name Dose Route Start Last Admin Trade Name Freq PRN Reason Stop Dose Admin Acetaminophen 650 mg 05/13/16 23:08 05/14/16 16:37 Tylenol - PO 650 mg Q6H PRN Administration FEVER OR PAIN Albuterol/Ipratropium 1 amp 05/14/16 00:00 05/15/16 07:00 Duoneb - NEB 1 amp QIDR RICKEY Administration Apixaban 5 mg 05/14/16 10:00 05/14/16 22:22 Eliquis - PO 5 mg BID RICKEY Administration Aspirin 81 mg 05/14/16 10:00 05/14/16 10:53 Asa - PO 81 mg DAILY RICKEY Administration Digoxin 0.125 mg 05/14/16 10:00 05/14/16 10:53 Lanoxin - PO 0.125 mg DAILY RICKEY Administration Methimazole 10 mg 05/14/16 10:00 05/14/16 10:54 Tapazole - PO 10 mg DAILY RICKEY Administration Methylprednisolone Sodium Succinate 40 mg 05/14/16 15:00 05/15/16 09:17 Solu-Medrol - IVPB 40 mg Q6H-IV RICKEY Administration Metoprolol Succinate 150 mg 05/15/16 10:00 Toprol Xl - PO BID RICKEY Pantoprazole Sodium 40 mg 05/14/16 10:00 05/14/16 10:53 Protonix - PO 40 mg DAILY RICKEY Administration Rosuvastatin Calcium 5 mg 05/14/16 22:00 05/14/16 22:22 Crestor - PO 5 mg HS RICKEY Administration CBC, BMP 05/15/16 06:10 05/15/16 06:10 EKG 05/13/16: Afib, VR 127, nl qtc, non-specific ST changes. Similar to priors when in RVR. cxr: clear lungs tele: afib with rvr at times Echo 08/2015: Nl lv/rv. EF 65-70%. E to A reversal. Mild Lae. 1+ AR/MR. No RVSP Pharm Stress MPI 2015: No ischemia. Nl EF. PFTs 2014: FEV1/FVC normal, mildly decreased FEV1, decreased FVC, normal TLC, mildly decreased DLCO consistent with obstructive process, possible emphysema Cath/PCI 09/2011: pRCA 80-90% -->BETHANIE, mLAD 60-70%, dLAD 60-70% + FFR, D1 mild diffuse disease Cath/PCI 10/2011: pLAD rota BETHANIE and mLAD rota BETHANIE. a/p: 81 yo f with h/o CAD s/p pRCA BETHANIE 09/2011 for unstable angina (CP/[facility]WARDS) and later BETHANIE to pLAD and mLAD 10/2011, paroxysmal atrial fibrillation, HTN, HL, diastolic dysfunction, Mild AR/MR, mild pHTN who presents with sob/cough. sob, cough: -does not appear grossly vol overloaded on exam or imaging and after iv lasix cr bumped up so likely no sig chf at this time. Will dc lasix now. Has not needed maintenance lasix at home. -Likely sxs due to URI/COPD. Cont steroids per pulm. paroxysmal Atrial fibrillation: -in afib here with occasional rvr. will increase toprol 100 bid to 150 bid which had controlled her HR here on prior admit. monitor on tele. -cont dig as well (dig level ordered) -cont eliquis CAD s/p stent x 3: - no cp, no signs acs - cont home statin, asa, bb Hypertension: - cont home bb - was holding home chlorthalidone 25 qd while getting lasix, now lasix stopped as above, resume chlorthalidone when cr back to baseline Hyperlipidemia, - continue crestor. 1+ MR/AR: - No signs of valvular decompensation
[2016-05-15] MEDS: APIXABAN 5 MG TABLET PO SCH ×2 (11:56→22:31)
[2016-05-15] MEDS: DIGOXIN 0.125 MG TABLET (FP) PO SCH (11:56)
[2016-05-15] MEDS: ASPIRIN 81 MG CHEWABLE TABLETS PO SCH (11:56)
[2016-05-15] MEDS: METHIMAZOLE 10 MG TABLET (FP) PO SCH (11:57)
[2016-05-15] MEDS: PANTOPRAZOLE 40 MG TABLET (FP) PO SCH (11:57)
--- NOTE | 2016-05-15 13:34 | PN ---
Progress Note, Physician History of Present Illness: pulmonary alert,feeling better,less dyspneic,+ confusion last night. pt remains in rapid afib - Current Medication List Current Medications: Active Medications Acetaminophen (Tylenol -) 650 mg PO Q6H PRN PRN Reason: FEVER OR PAIN Last Admin: 05/14/16 16:37 Dose: 650 mg Albuterol Sulfate (Ventolin 0.083% Nebulizer Soln -) 1 amp NEB Q4H PRN PRN Reason: SHORT OF BREATH/WHEEZING Apixaban (Eliquis -) 5 mg PO BID [facility] Last Admin: 05/15/16 11:56 Dose: 5 mg Aspirin (Asa -) 81 mg PO DAILY [facility] Last Admin: 05/15/16 11:56 Dose: 81 mg Digoxin (Lanoxin -) 0.125 mg PO DAILY [facility] Last Admin: 05/15/16 11:56 Dose: 0.125 mg Diltiazem HCl (Cardizem Cd -) 120 mg PO BID [facility] Methimazole (Tapazole -) 10 mg PO DAILY [facility] Last Admin: 05/15/16 11:57 Dose: 10 mg Methylprednisolone Sodium Succinate (Solu-Medrol -) 40 mg IVPB Q6H-IV [facility] Last Admin: 05/15/16 09:17 Dose: 40 mg Metoprolol Succinate (Toprol Xl -) 150 mg PO BID [facility] Stop: 05/15/16 14:00 Last Admin: 05/15/16 11:57 Dose: 150 mg Pantoprazole Sodium (Protonix -) 40 mg PO DAILY [facility] Last Admin: 05/15/16 11:57 Dose: 40 mg Rosuvastatin Calcium (Crestor -) 5 mg PO HS [facility] Last Admin: 05/14/16 22:22 Dose: 5 mg - Objective Vital Signs: Vital Signs Temperature 97.9 F 05/15/16 05:00 Pulse Rate 140 H 05/15/16 05:00 Respiratory Rate 20 05/15/16 05:00 Blood Pressure 158/78 05/15/16 05:00 O2 Sat by Pulse Oximetry (%) 99 05/15/16 03:05 Constitutional: Yes: Well Nourished, Calm Eyes: Yes: WNL HENT: Yes: WNL Neck: Yes: WNL Cardiovascular: Yes: Pulse Irregular, S1, S2 Respiratory: Yes: Wheezes (scattered maricruz wheezes) Gastrointestinal: Yes: Normal Bowel Sounds, Soft Extremities: Yes: WNL Edema: No Labs: CBC, BMP 05/15/16 06:10 05/15/16 06:10 INR, PTT INR 1.48 (0.82-1.09) H 05/13/16 20:48 Problem List - Problems (1) Shortness of breath Code(s): R06.02 - SHORTNESS OF BREATH (2) ASHD (arteriosclerotic heart disease) Code(s): I25.10 - ATHSCL HEART DISEASE OF [place] CORONARY ARTERY W/O ANG PCTRS (3) Afib Code(s): I48.91 - UNSPECIFIED ATRIAL FIBRILLATION (4) Atrial fibrillation with rapid ventricular response Code(s): I48.91 - UNSPECIFIED ATRIAL FIBRILLATION (5) HLD (hyperlipidemia) Code(s): E78.5 - HYPERLIPIDEMIA, UNSPECIFIED (6) HTN (hypertension) Code(s): I10 - ESSENTIAL (PRIMARY) HYPERTENSION (7) Asthmatic bronchitis Code(s): J45.909 - UNSPECIFIED ASTHMA, UNCOMPLICATED (8) COPD (chronic obstructive pulmonary disease) Code(s): J44.9 - CHRONIC OBSTRUCTIVE PULMONARY DISEASE, UNSPECIFIED Qualifiers : COPD type: COPD with acute exacerbation Qualified Code(s): J44.1 - Chronic obstructive pulmonary disease with (acute) exacerbation Assessment/Plan IMP ASTHMATIC BRONCHITIS CHF COPD BY PFTS AFIB ASHD S/P STENT PULMONARY HTN MGUS PLAN TAPER STEROIDS INHALED BRONCHODILATORS PRN LASIX ANTICOAGULATION O2 RATE CONTROL DR BUSTOS Problem List - Problems (1) Shortness of breath Code(s): R06.02 - SHORTNESS OF BREATH (2) ASHD (arteriosclerotic heart disease) Code(s): I25.10 - ATHSCL HEART DISEASE OF [place] CORONARY ARTERY W/O ANG PCTRS (3) Afib Code(s): I48.91 - UNSPECIFIED ATRIAL FIBRILLATION (4) Atrial fibrillation with rapid ventricular response Code(s): I48.91 - UNSPECIFIED ATRIAL FIBRILLATION (5) HLD (hyperlipidemia) Code(s): E78.5 - HYPERLIPIDEMIA, UNSPECIFIED (6) HTN (hypertension) Code(s): I10 - ESSENTIAL (PRIMARY) HYPERTENSION (7) Asthmatic bronchitis Code(s): J45.909 - UNSPECIFIED ASTHMA, UNCOMPLICATED (8) COPD (chronic obstructive pulmonary disease) Code(s): J44.9 - CHRONIC OBSTRUCTIVE PULMONARY DISEASE, UNSPECIFIED
--- NOTE | 2016-05-15 15:27 | PN ---
Progress Note, Physician Chief Complaint: Mrs Cartagena says she is feeling better today, but still short of breath. No cp or n/v. - Current Medication List Current Medications: Active Medications Acetaminophen (Tylenol -) 650 mg PO Q6H PRN PRN Reason: FEVER OR PAIN Last Admin: 05/14/16 16:37 Dose: 650 mg Albuterol Sulfate (Ventolin 0.083% Nebulizer Soln -) 1 amp NEB Q4H PRN PRN Reason: SHORT OF BREATH/WHEEZING Apixaban (Eliquis -) 5 mg PO BID [facility] Last Admin: 05/15/16 11:56 Dose: 5 mg Aspirin (Asa -) 81 mg PO DAILY [facility] Last Admin: 05/15/16 11:56 Dose: 81 mg Digoxin (Lanoxin -) 0.125 mg PO DAILY [facility] Last Admin: 05/15/16 11:56 Dose: 0.125 mg Diltiazem HCl (Cardizem Cd -) 120 mg PO BID [facility] Methimazole (Tapazole -) 10 mg PO DAILY [facility] Last Admin: 05/15/16 11:57 Dose: 10 mg Methylprednisolone Sodium Succinate (Solu-Medrol -) 40 mg IVPB BID [facility] Pantoprazole Sodium (Protonix -) 40 mg PO DAILY [facility] Last Admin: 05/15/16 11:57 Dose: 40 mg Rosuvastatin Calcium (Crestor -) 5 mg PO HS [facility] Last Admin: 05/14/16 22:22 Dose: 5 mg - Objective Vital Signs: Vital Signs Temperature 97.9 F 05/15/16 05:00 Pulse Rate 140 H 05/15/16 05:00 Respiratory Rate 20 05/15/16 05:00 Blood Pressure 158/78 05/15/16 05:00 O2 Sat by Pulse Oximetry (%) 99 05/15/16 03:05 Constitutional: Yes: Well Nourished, No Distress, Calm Cardiovascular: Yes: Tachycardia, Pulse Irregular. No: Gallop, Murmur, Rub Respiratory: Yes: Regular, Wheezes, Other (fair air movement). No: Rales, Rhonchi Gastrointestinal: Yes: Normal Bowel Sounds, Soft. No: Distention, Tenderness Extremities: Yes: WNL Edema: No Labs: CBC, BMP 05/15/16 06:10 05/15/16 06:10 INR, PTT INR 1.48 (0.82-1.09) H 05/13/16 20:48 Problem List - Problems (1) COPD (chronic obstructive pulmonary disease) Code(s): J44.9 - CHRONIC OBSTRUCTIVE PULMONARY DISEASE, UNSPECIFIED Qualifiers : COPD type: COPD with acute exacerbation Qualified Code(s): J44.1 - Chronic obstructive pulmonary disease with (acute) exacerbation (2) Atrial fibrillation with rapid ventricular response Code(s): I48.91 - UNSPECIFIED ATRIAL FIBRILLATION (3) HLD (hyperlipidemia) Code(s): E78.5 - HYPERLIPIDEMIA, UNSPECIFIED (4) HTN (hypertension) Code(s): I10 - ESSENTIAL (PRIMARY) HYPERTENSION (5) Hyperthyroidism Code(s): E05.90 - THYROTOXICOSIS, UNSP WITHOUT THYROTOXIC CRISIS OR STORM Assessment/Plan (1) COPD (chronic obstructive pulmonary disease) Assessment/Plan: -appreciate pulmonary assistance, note reviewed -solumedrol decreased -continue albuterol -influenza negative Code(s): J44.9 - CHRONIC OBSTRUCTIVE PULMONARY DISEASE, UNSPECIFIED Qualifiers : COPD type: COPD with acute exacerbation Qualified Code(s): J44.1 - Chronic obstructive pulmonary disease with (acute) exacerbation (2) Atrial fibrillation with rapid ventricular response Assessment/Plan: -cardiology consulted and note reviewed -continue digoxin -toprol xl changed to diltiazem secondary to bronchospasm -continue eliquis Code(s): I48.91 - UNSPECIFIED ATRIAL FIBRILLATION (3) HLD (hyperlipidemia) Assessment/Plan: -continue crestor Code(s): E78.5 - HYPERLIPIDEMIA, UNSPECIFIED (4) HTN (hypertension) Assessment/Plan: -toprol xl changed to diltiazem Code(s): I10 - ESSENTIAL (PRIMARY) HYPERTENSION (5) Hyperthyroidism Assessment/Plan: -continue tapazole -TSH and FT4 normal Code(s): E05.90 - THYROTOXICOSIS, UNSP WITHOUT THYROTOXIC CRISIS OR STORM
[2016-05-15] MEDS ORDERED: PT OWN MED DRAWER 7, Y5N ONE (21:30)
[2016-05-15] MEDS: ROSUVASTATIN CA 10 MG TABLET (FP) PO SCH (22:31)
[2016-05-15] MEDS: ALBUTEROL SO4 0.083% IH SOL 2.5 MG/3 ML VIAL.NEB. NEB PRN (23:50)
[2016-05-16] MEDS: ALBUTEROL SO4 0.083% IH SOL 2.5 MG/3 ML VIAL.NEB. NEB PRN ×3 (05:59→21:45)
[2016-05-16 07:45] LABS: BASOPHIL 0.1 % (0-2.0); MCH 29.1 pg (25.7-33.7); MCHC 32.9 g/dl (32.0-36.0); MEAN CELL VOLUME 88.3 fl (80-96); MEAN PLT VOLUME 8.8 fl (7.5-11.1); NEUTROPHILS 90.9 % (42.8-82.8); PLATELET COUNT 264 K/MM3 (134-434); RDW 13.8 % (11.6-15.6); WHITE BLOOD COUNT 16.8 K/mm3 (4.0-10.0)
[2016-05-16 08:33] LABS: CALCIUM 8.8 mg/dL (8.5-10.1); CREATININE 1.1 mg/dL (0.55-1.02); DIGOXIN LEVEL 1.1842 ng/ml (0.8-2.0); MAGNESIUM 2.2 mg/dL (1.8-2.4); PHOSPHOROUS 3.2 mg/dL (2.5-4.9)
--- NOTE | 2016-05-16 08:35 | PN ---
Progress Note, Physician Chief Complaint: afib, copd History of Present Illness: sob "a little better" denies palpitations, cp, presyncope - Current Medication List Current Medications: Active Medications Acetaminophen (Tylenol -) 650 mg PO Q6H PRN PRN Reason: FEVER OR PAIN Last Admin: 05/14/16 16:37 Dose: 650 mg Albuterol Sulfate (Ventolin 0.083% Nebulizer Soln -) 1 amp NEB Q4H PRN PRN Reason: SHORT OF BREATH/WHEEZING Last Admin: 05/16/16 05:59 Dose: 1 amp Apixaban (Eliquis -) 5 mg PO BID [facility] Last Admin: 05/15/16 22:31 Dose: 5 mg Aspirin (Asa -) 81 mg PO DAILY [facility] Last Admin: 05/15/16 11:56 Dose: 81 mg Digoxin (Lanoxin -) 0.125 mg PO DAILY [facility] Last Admin: 05/15/16 11:56 Dose: 0.125 mg Diltiazem HCl (Cardizem Cd -) 120 mg PO BID [facility] Last Admin: 05/15/16 22:31 Dose: 120 mg Methimazole (Tapazole -) 10 mg PO DAILY [facility] Last Admin: 05/15/16 11:57 Dose: 10 mg Methylprednisolone Sodium Succinate (Solu-Medrol -) 40 mg IVPB BID [facility] Last Admin: 05/15/16 22:31 Dose: 40 mg Pantoprazole Sodium (Protonix -) 40 mg PO DAILY [facility] Last Admin: 05/15/16 11:57 Dose: 40 mg Rosuvastatin Calcium (Crestor -) 5 mg PO HS [facility] Last Admin: 05/15/16 22:31 Dose: 5 mg - Objective Vital Signs: Vital Signs Temperature 98.5 F 05/16/16 07:44 Pulse Rate 122 H 05/16/16 07:44 Respiratory Rate 18 05/16/16 07:44 Blood Pressure 128/68 05/16/16 07:44 O2 Sat by Pulse Oximetry (%) 100 05/16/16 00:04 Constitutional: Yes: Well Nourished, No Distress, Calm Cardiovascular: Yes: Pulse Irregular, S1, S2. No: JVD, Gallop, Murmur Respiratory: Yes: Regular, Wheezes (diffusely). No: Accessory Muscle Use, Rales Extremities: No: Cold Edema: No Neurological: Yes: Alert, Oriented Psychiatric: No: Agitated Labs: CBC, BMP 05/16/16 06:00 05/16/16 06:00 INR, PTT INR 1.48 (0.82-1.09) H 05/13/16 20:48 - ....Imaging EKG: Other (tele: afib 110s, to 130s-140s overnight and early am) Assessment/Plan Echo 08/2015: Nl lv/rv. EF 65-70%. E to A reversal. Mild Lae. 1+ AR/MR. No RVSP Pharm Stress MPI 2015: No ischemia. Nl EF. PFTs 2014: FEV1/FVC normal, mildly decreased FEV1, decreased FVC, normal TLC, mildly decreased DLCO consistent with obstructive process, possible emphysema Cath/PCI 09/2011: pRCA 80-90% -->BETHANIE, mLAD 60-70%, dLAD 60-70% + FFR, D1 mild diffuse disease Cath/PCI 10/2011: pLAD rota BETHANIE and mLAD rota BETHANIE. 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 a.e. copd with bronchospasm: - getting steroids and prn BDs per pulm - BB held, to minimize bronchospasm exacerbation -does not appear grossly vol overloaded on exam or imaging here, and after iv lasix cr bumped--likely no sig chf at this time--lasix d/c'd paroxysmal atrial fibrillation: -AF here is at times rapid, likely sec to acute resp distress, standing b- agonist requirements -had required toprol increase from 100 bid to 150 bid to control HRs on prior admit, and again was incr'd recently as outpt -changed to diltiazem 120 bid yest given suspicion that hi dose BB may be worsening bronchospasm -HRs frequently were 130s-140s overnight, following yesterday's dose of diltiazem -titrate diltiazem up (240 qd) and consider add low dose (50mg qd) metoprolol ( next step would be adding amio temporaril) -cont dig (level good here) -cont eliquis for AC CAD s/p stent x 3: - no cp, no signs acs - cont home statin, asa, bb Hypertension: - well controlled - same meds Hyperlipidemia, - continue crestor. 1+ MR/AR: - No signs of valvular decompensation
[2016-05-16] MEDS: DIGOXIN 0.125 MG TABLET (FP) PO SCH (09:32)
[2016-05-16] MEDS: APIXABAN 5 MG TABLET PO SCH ×2 (09:32→21:41)
[2016-05-16] MEDS: METHIMAZOLE 10 MG TABLET (FP) PO SCH (09:32)
[2016-05-16] MEDS: PANTOPRAZOLE 40 MG TABLET (FP) PO SCH (09:32)
[2016-05-16] MEDS: methylPREDNISolone NA SUCC 40 MG/1 ML VIAL IVPB SCH (09:32)
[2016-05-16] MEDS: ASPIRIN 81 MG CHEWABLE TABLETS PO SCH (09:32)
--- NOTE | 2016-05-16 10:42 | PN ---
Progress Note, Physician History of Present Illness: PULMONARY ALERT,LESS DYSPNEIC,+CONFUSION AGAIN LAST NIGHT - Current Medication List Current Medications: Active Medications Acetaminophen (Tylenol -) 650 mg PO Q6H PRN PRN Reason: FEVER OR PAIN Last Admin: 05/14/16 16:37 Dose: 650 mg Albuterol Sulfate (Ventolin 0.083% Nebulizer Soln -) 1 amp NEB Q4H PRN PRN Reason: SHORT OF BREATH/WHEEZING Last Admin: 05/16/16 05:59 Dose: 1 amp Apixaban (Eliquis -) 5 mg PO BID [facility] Last Admin: 05/16/16 09:32 Dose: 5 mg Aspirin (Asa -) 81 mg PO DAILY [facility] Last Admin: 05/16/16 09:32 Dose: 81 mg Digoxin (Lanoxin -) 0.125 mg PO DAILY [facility] Last Admin: 05/16/16 09:32 Dose: 0.125 mg Diltiazem HCl (Cardizem Cd -) 240 mg PO DAILY [facility] Methimazole (Tapazole -) 10 mg PO DAILY [facility] Last Admin: 05/16/16 09:32 Dose: 10 mg Methylprednisolone Sodium Succinate (Solu-Medrol -) 40 mg IVPB BID [facility] Last Admin: 05/16/16 09:32 Dose: 40 mg Pantoprazole Sodium (Protonix -) 40 mg PO DAILY [facility] Last Admin: 05/16/16 09:32 Dose: 40 mg Rosuvastatin Calcium (Crestor -) 5 mg PO HS [facility] Last Admin: 05/15/16 22:31 Dose: 5 mg - Objective Vital Signs: Vital Signs Temperature 98.5 F 05/16/16 07:44 Pulse Rate 119 H 05/16/16 09:32 Respiratory Rate 18 05/16/16 07:44 Blood Pressure 128/68 05/16/16 07:44 O2 Sat by Pulse Oximetry (%) 100 05/16/16 00:04 Constitutional: Yes: Well Nourished, Calm Eyes: Yes: WNL HENT: Yes: WNL Neck: Yes: WNL Cardiovascular: Yes: Pulse Irregular, S1, S2 Respiratory: Yes: Wheezes (BILATERAL WHEEZES) Gastrointestinal: Yes: Normal Bowel Sounds, Soft Extremities: Yes: WNL Edema: No Labs: CBC, BMP 05/16/16 06:00 05/16/16 06:00 INR, PTT INR 1.48 (0.82-1.09) H 05/13/16 20:48 Problem List - Problems (1) Shortness of breath Code(s): R06.02 - SHORTNESS OF BREATH (2) ASHD (arteriosclerotic heart disease) Code(s): I25.10 - ATHSCL HEART DISEASE OF [place] CORONARY ARTERY W/O ANG PCTRS (3) Afib Code(s): I48.91 - UNSPECIFIED ATRIAL FIBRILLATION (4) Atrial fibrillation with rapid ventricular response Code(s): I48.91 - UNSPECIFIED ATRIAL FIBRILLATION (5) HLD (hyperlipidemia) Code(s): E78.5 - HYPERLIPIDEMIA, UNSPECIFIED (6) HTN (hypertension) Code(s): I10 - ESSENTIAL (PRIMARY) HYPERTENSION (7) Asthmatic bronchitis Code(s): J45.909 - UNSPECIFIED ASTHMA, UNCOMPLICATED (8) COPD (chronic obstructive pulmonary disease) Code(s): J44.9 - CHRONIC OBSTRUCTIVE PULMONARY DISEASE, UNSPECIFIED Qualifiers : Qualified Code(s): J44.1 - Chronic obstructive pulmonary disease with ( acute) exacerbation Assessment/Plan IMP ASTHMATIC BRONCHITIS CHF COPD BY PFTS AFIB ASHD S/P STENT PULMONARY HTN MGUS PLAN DC STEROIDS INHALED BRONCHODILATORS PRN SPIRIVA LASIX ANTICOAGULATION O2 RATE CONTROL CHEST X-RAY DR BUSTOS Problem List - Problems (1) Shortness of breath Code(s): R06.02 - SHORTNESS OF BREATH (2) ASHD (arteriosclerotic heart disease) Code(s): I25.10 - ATHSCL HEART DISEASE OF [place] CORONARY ARTERY W/O ANG PCTRS (3) Afib Code(s): I48.91 - UNSPECIFIED ATRIAL FIBRILLATION (4) Atrial fibrillation with rapid ventricular response Code(s): I48.91 - UNSPECIFIED ATRIAL FIBRILLATION (5) HLD (hyperlipidemia) Code(s): E78.5 - HYPERLIPIDEMIA, UNSPECIFIED (6) HTN (hypertension) Code(s): I10 - ESSENTIAL (PRIMARY) HYPERTENSION (7) Asthmatic bronchitis Code(s): J45.909 - UNSPECIFIED ASTHMA, UNCOMPLICATED (8) COPD (chronic obstructive pulmonary disease) Code(s): J44.9 - CHRONIC OBSTRUCTIVE PULMONARY DISEASE, UNSPECIFIED
--- NOTE | 2016-05-16 12:53 | PN ---
Progress Note, Physician Chief Complaint: Breathing is better today. History of Present Illness: Patient admitted for Acute Exacerbation of COPD is feeling better but still has some behavioral changes in the nelia. Because it may be steroid related the Certified Lactation Counselor has stopped the IV steroids. She may be having some delirium from being in the hospital so we will observe this tonite. Patient's daughter not aware of DM diagnosis and current elevations may be due only to steroids. I will order HBA1C. Cardiology has changed cardiac meds for A. Fib and Hypertension from beta bigg to calcium channel blockers and she has some flushing and slight headache. Will follow. - Current Medication List Current Medications: Active Medications Acetaminophen (Tylenol -) 650 mg PO Q6H PRN PRN Reason: FEVER OR PAIN Last Admin: 05/14/16 16:37 Dose: 650 mg Albuterol Sulfate (Ventolin 0.083% Nebulizer Soln -) 1 amp NEB Q4H PRN PRN Reason: SHORT OF BREATH/WHEEZING Last Admin: 05/16/16 10:00 Dose: 1 amp Apixaban (Eliquis -) 5 mg PO BID [facility] Last Admin: 05/16/16 09:32 Dose: 5 mg Aspirin (Asa -) 81 mg PO DAILY [facility] Last Admin: 05/16/16 09:32 Dose: 81 mg Digoxin (Lanoxin -) 0.125 mg PO DAILY [facility] Last Admin: 05/16/16 09:32 Dose: 0.125 mg Diltiazem HCl (Cardizem Cd -) 240 mg PO DAILY [facility] Methimazole (Tapazole -) 10 mg PO DAILY [facility] Last Admin: 05/16/16 09:32 Dose: 10 mg Pantoprazole Sodium (Protonix -) 40 mg PO DAILY [facility] Last Admin: 05/16/16 09:32 Dose: 40 mg Rosuvastatin Calcium (Crestor -) 5 mg PO HS [facility] Last Admin: 05/15/16 22:31 Dose: 5 mg Tiotropium [place] (Spiriva -) 1 puff IH DAILY [facility] - Objective Vital Signs: Vital Signs Temperature 98.5 F 05/16/16 07:44 Pulse Rate 119 H 05/16/16 09:32 Respiratory Rate 18 05/16/16 07:44 Blood Pressure 128/68 05/16/16 07:44 O2 Sat by Pulse Oximetry (%) 100 05/16/16 00:04 Constitutional: Yes: Calm. No: Pallor Eyes: Yes: Conjunctiva Clear Cardiovascular: Yes: Pulse Irregular Respiratory: Yes: Diminished, Rhonchi (few rhonchi right and left base) Gastrointestinal: Yes: Soft, Other (no BM yet.) Genitourinary: No: Lucas Present Edema: LLE: Trace, RLE: Trace Neurological: Yes: Alert Labs: CBC, BMP 05/16/16 06:00 05/16/16 06:00 INR, PTT INR 1.48 (0.82-1.09) H 05/13/16 20:48 Problem List - Problems (1) Acute exacerbation of chronic obstructive airways disease Assessment/Plan: Breathing improved; on Aerosol Rx but Steroids D/Luke because of possible GAS STATION OPERATOR side effects Code(s): J44.1 - CHRONIC OBSTRUCTIVE PULMONARY DISEASE W (ACUTE) EXACERBATION (2) ASHD (arteriosclerotic heart disease) Assessment/Plan: Hx Coronary Artery Stents Code(s): I25.10 - ATHSCL HEART DISEASE OF [place] CORONARY ARTERY W/O ANG PCTRS (3) Atrial fibrillation with rapid ventricular response Assessment/Plan: On Eliquis and digoxin and Calcium channel Blockers to control rate. Code(s): I48.91 - UNSPECIFIED ATRIAL FIBRILLATION (4) HTN (hypertension) Assessment/Plan: On Rx; will follow Code(s): I10 - ESSENTIAL (PRIMARY) HYPERTENSION (5) Hyperthyroidism Assessment/Plan: On Tapezole Rx; Lab stable. Code(s): E05.90 - THYROTOXICOSIS, UNSP WITHOUT THYROTOXIC CRISIS OR STORM (6) Confusion Assessment/Plan: May be due to steroids but may be delirium from hospital environment and illness. Code(s): R41.0 - DISORIENTATION, UNSPECIFIED (7) Hyperglycemia Assessment/Plan: May be from steroids only but HBA1C ordered. Code(s): R73.9 - HYPERGLYCEMIA, UNSPECIFIED
[2016-05-16] MEDS: TIOTROPIUM BROMIDE 18 MCG/INH (DEVICE W/ 30 CAPSULES) IH SCH (13:45)
[2016-05-16] MEDS: ROSUVASTATIN CA 10 MG TABLET (FP) PO SCH (21:41)
[2016-05-17 07:38] LABS: BASOPHIL 0.1 % (0-2.0); MCH 29.4 pg (25.7-33.7); MCHC 33.2 g/dl (32.0-36.0); MEAN CELL VOLUME 88.4 fl (80-96); MEAN PLT VOLUME 8.8 fl (7.5-11.1); PLATELET COUNT 225 K/MM3 (134-434); WHITE BLOOD COUNT 12.3 K/mm3 (4.0-10.0)
[2016-05-17 08:04] LABS: CALCIUM 8.3 mg/dL (8.5-10.1); CREATININE 1.2 mg/dL (0.55-1.02)
--- NOTE | 2016-05-17 08:45 | PN ---
Progress Note, Physician Chief Complaint: afib, sob History of Present Illness: yest afternoon c/o'd of VAUGHAN--? sec to diltiazem; however pt states no more VAUGHAN since then; breathing is better; no cp, palpit - Current Medication List Current Medications: Active Medications Acetaminophen (Tylenol -) 650 mg PO Q6H PRN PRN Reason: FEVER OR PAIN Last Admin: 05/14/16 16:37 Dose: 650 mg Albuterol Sulfate (Ventolin 0.083% Nebulizer Soln -) 1 amp NEB Q4H PRN PRN Reason: SHORT OF BREATH/WHEEZING Last Admin: 05/16/16 21:45 Dose: 1 amp Apixaban (Eliquis -) 5 mg PO BID [facility] Last Admin: 05/16/16 21:41 Dose: 5 mg Aspirin (Asa -) 81 mg PO DAILY [facility] Last Admin: 05/16/16 09:32 Dose: 81 mg Digoxin (Lanoxin -) 0.125 mg PO DAILY [facility] Last Admin: 05/16/16 09:32 Dose: 0.125 mg Diltiazem HCl (Cardizem Cd -) 240 mg PO DAILY [facility] Methimazole (Tapazole -) 10 mg PO DAILY [facility] Last Admin: 05/16/16 09:32 Dose: 10 mg Pantoprazole Sodium (Protonix -) 40 mg PO DAILY [facility] Last Admin: 05/16/16 09:32 Dose: 40 mg Rosuvastatin Calcium (Crestor -) 5 mg PO HS [facility] Last Admin: 05/16/16 21:41 Dose: 5 mg Tiotropium [place] (Spiriva -) 1 puff IH DAILY [facility] Last Admin: 05/16/16 13:45 Dose: 1 puff - Objective Vital Signs: Vital Signs Temperature 98.1 F 05/17/16 06:00 Pulse Rate 96 H 05/17/16 06:00 Respiratory Rate 18 05/17/16 06:00 Blood Pressure 118/70 05/17/16 06:00 O2 Sat by Pulse Oximetry (%) 96 05/16/16 21:00 Constitutional: Yes: Well Nourished, No Distress, Calm Cardiovascular: Yes: Pulse Irregular, S1, S2. No: JVD, Gallop, Murmur Respiratory: Yes: Regular, CTA Bilaterally. No: Accessory Muscle Use, Rales, Wheezes Extremities: No: Cold Edema: No Neurological: Yes: Alert, Oriented Psychiatric: No: Agitated Labs: CBC, BMP 05/17/16 05:35 05/17/16 05:35 INR, PTT INR 1.48 (0.82-1.09) H 05/13/16 20:48 - ....Imaging EKG: Other (tele: AF, hr's good) Assessment/Plan Echo 08/2015: Nl lv/rv. EF 65-70%. E to A reversal. Mild Lae. 1+ AR/MR. No RVSP Pharm Stress MPI 2015: No ischemia. Nl EF. PFTs 2014: FEV1/FVC normal, mildly decreased FEV1, decreased FVC, normal TLC, mildly decreased DLCO consistent with obstructive process, possible emphysema Cath/PCI 09/2011: pRCA 80-90% -->BETHANIE, mLAD 60-70%, dLAD 60-70% + FFR, D1 mild diffuse disease Cath/PCI 10/2011: pLAD rota BETHANIE and mLAD rota BETHANIE. 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 a.e. copd with bronchospasm: - intolerant of steroids (psych effects), trying to minimize b-agonists given uncontrolled AF - spiriva added yest by dr rosa--sx's and wheezing on exam much improved - BB held, to minimize bronchospasm exacerbation - does not appear grossly vol overloaded on exam or imaging here, and after iv lasix cr bumped--likely no sig chf at this time--lasix d/c'd paroxysmal atrial fibrillation: -AF here frequently running rapid, likely sec to acute resp distress, standing b -agonist requirements -TSH normal -had required toprol increase from 100 bid to 150 bid to control HRs on prior admit, and again was incr'd recently as outpt -changed to diltiazem 120 bid 05/15given suspicion that hi dose BB may be worsening bronchospasm -05/16: HRs frequently were 130s-140s overnight, following first dose of diltiazem 120 -titrated diltiazem up (240 qd) and consider add low dose (50mg qd) metoprolol ( next step would be adding amio temporaril) -doubt HAs on 05/16 were related to diltiazem--if recurs can try verapamil -cont dig (level good here) -cont eliquis for AC CAD s/p stent x 3: - no cp, no signs acs - cont home statin, asa, bb Hypertension: - well controlled - same meds Hyperlipidemia, - continue crestor.
[2016-05-17] MEDS: ASPIRIN 81 MG CHEWABLE TABLETS PO SCH (10:20)
[2016-05-17] MEDS: DIGOXIN 0.125 MG TABLET (FP) PO SCH (10:20)
[2016-05-17] MEDS: APIXABAN 5 MG TABLET PO SCH ×2 (10:20→21:52)
[2016-05-17] MEDS: METHIMAZOLE 10 MG TABLET (FP) PO SCH (10:20)
[2016-05-17] MEDS: TIOTROPIUM BROMIDE 18 MCG/INH (DEVICE W/ 30 CAPSULES) IH SCH (10:21)
[2016-05-17] MEDS: PANTOPRAZOLE 40 MG TABLET (FP) PO SCH (10:21)
--- NOTE | 2016-05-17 10:59 | PN ---
Progress Note, Physician History of Present Illness: pulmonary alert,feeling better,less dyspneic,-confusion, hr controlled - Current Medication List Current Medications: Active Medications Acetaminophen (Tylenol -) 650 mg PO Q6H PRN PRN Reason: FEVER OR PAIN Last Admin: 05/14/16 16:37 Dose: 650 mg Albuterol Sulfate (Ventolin 0.083% Nebulizer Soln -) 1 amp NEB Q4H PRN PRN Reason: SHORT OF BREATH/WHEEZING Last Admin: 05/16/16 21:45 Dose: 1 amp Apixaban (Eliquis -) 5 mg PO BID [facility] Last Admin: 05/17/16 10:20 Dose: 5 mg Aspirin (Asa -) 81 mg PO DAILY [facility] Last Admin: 05/17/16 10:20 Dose: 81 mg Digoxin (Lanoxin -) 0.125 mg PO DAILY [facility] Last Admin: 05/17/16 10:20 Dose: 0.125 mg Diltiazem HCl (Cardizem Cd -) 240 mg PO DAILY [facility] Last Admin: 05/17/16 10:21 Dose: 240 mg Methimazole (Tapazole -) 10 mg PO DAILY [facility] Last Admin: 05/17/16 10:20 Dose: 10 mg Pantoprazole Sodium (Protonix -) 40 mg PO DAILY [facility] Last Admin: 05/17/16 10:21 Dose: 40 mg Rosuvastatin Calcium (Crestor -) 5 mg PO HS [facility] Last Admin: 05/16/16 21:41 Dose: 5 mg Tiotropium [place] (Spiriva -) 1 puff IH DAILY [facility] Last Admin: 05/17/16 10:21 Dose: 1 puff - Objective Vital Signs: Vital Signs Temperature 98.1 F 05/17/16 06:00 Pulse Rate 124 H 05/17/16 10:20 Respiratory Rate 18 05/17/16 06:00 Blood Pressure 118/70 05/17/16 06:00 O2 Sat by Pulse Oximetry (%) 96 05/16/16 21:00 Constitutional: Yes: Well Nourished, Calm Eyes: Yes: WNL HENT: Yes: WNL Neck: Yes: WNL Cardiovascular: Yes: Pulse Irregular, S1, S2 Respiratory: Yes: Wheezes (less wheezes bilaterally) Gastrointestinal: Yes: Normal Bowel Sounds, Soft Extremities: Yes: WNL Edema: No Labs: CBC, BMP 05/17/16 05:35 05/17/16 05:35 INR, PTT INR 1.48 (0.82-1.09) H 05/13/16 20:48 Problem List - Problems (1) Shortness of breath Code(s): R06.02 - SHORTNESS OF BREATH (2) ASHD (arteriosclerotic heart disease) Code(s): I25.10 - ATHSCL HEART DISEASE OF [place] CORONARY ARTERY W/O ANG PCTRS (3) Afib Code(s): I48.91 - UNSPECIFIED ATRIAL FIBRILLATION (4) Atrial fibrillation with rapid ventricular response Code(s): I48.91 - UNSPECIFIED ATRIAL FIBRILLATION (5) HLD (hyperlipidemia) Code(s): E78.5 - HYPERLIPIDEMIA, UNSPECIFIED (6) HTN (hypertension) Code(s): I10 - ESSENTIAL (PRIMARY) HYPERTENSION (7) Asthmatic bronchitis Code(s): J45.909 - UNSPECIFIED ASTHMA, UNCOMPLICATED (8) COPD (chronic obstructive pulmonary disease) Code(s): J44.9 - CHRONIC OBSTRUCTIVE PULMONARY DISEASE, UNSPECIFIED Qualifiers : COPD type: COPD with acute exacerbation Qualified Code(s): J44.1 - Chronic obstructive pulmonary disease with (acute) exacerbation Assessment/Plan IMP ASTHMATIC BRONCHITIS improving CHF improving COPD BY PFTS AFIB ASHD S/P STENT PULMONARY HTN MGUS PLAN DC STEROIDS INHALED BRONCHODILATORS PRN SPIRIVA ANTICOAGULATION O2 RATE CONTROL CHEST CT TO EVALUATE LLL DR BUSTOS Problem List - Problems (1) Shortness of breath Code(s): R06.02 - SHORTNESS OF BREATH (2) ASHD (arteriosclerotic heart disease) Code(s): I25.10 - ATHSCL HEART DISEASE OF [place] CORONARY ARTERY W/O ANG PCTRS (3) Afib Code(s): I48.91 - UNSPECIFIED ATRIAL FIBRILLATION (4) Atrial fibrillation with rapid ventricular response Code(s): I48.91 - UNSPECIFIED ATRIAL FIBRILLATION (5) HLD (hyperlipidemia) Code(s): E78.5 - HYPERLIPIDEMIA, UNSPECIFIED (6) HTN (hypertension) Code(s): I10 - ESSENTIAL (PRIMARY) HYPERTENSION (7) Asthmatic bronchitis Code(s): J45.909 - UNSPECIFIED ASTHMA, UNCOMPLICATED (8) COPD (chronic obstructive pulmonary disease) Code(s): J44.9 - CHRONIC OBSTRUCTIVE PULMONARY DISEASE, UNSPECIFIED
--- NOTE | 2016-05-17 12:11 | PN ---
Progress Note, Physician Chief Complaint: Feels better and doesn't complain of SOB. History of Present Illness: Patient admitted with SOB and put on aerosol Rx and IV steroids. Her breathing was improved but there were behavioral side effects and Pulmonary MD D/Luke Steroid Rx. Of note is Hemoglobin A1C of 7.2 even though the family denies Hx. DM and she is not on steroids at home. No BM; will address. - Current Medication List Current Medications: Active Medications Acetaminophen (Tylenol -) 650 mg PO Q6H PRN PRN Reason: FEVER OR PAIN Last Admin: 05/14/16 16:37 Dose: 650 mg Albuterol Sulfate (Ventolin 0.083% Nebulizer Soln -) 1 amp NEB Q4H PRN PRN Reason: SHORT OF BREATH/WHEEZING Last Admin: 05/16/16 21:45 Dose: 1 amp Apixaban (Eliquis -) 5 mg PO BID [facility] Last Admin: 05/17/16 10:20 Dose: 5 mg Aspirin (Asa -) 81 mg PO DAILY [facility] Last Admin: 05/17/16 10:20 Dose: 81 mg Digoxin (Lanoxin -) 0.125 mg PO DAILY [facility] Last Admin: 05/17/16 10:20 Dose: 0.125 mg Diltiazem HCl (Cardizem Cd -) 240 mg PO DAILY [facility] Last Admin: 05/17/16 10:21 Dose: 240 mg Methimazole (Tapazole -) 10 mg PO DAILY [facility] Last Admin: 05/17/16 10:20 Dose: 10 mg Pantoprazole Sodium (Protonix -) 40 mg PO DAILY [facility] Last Admin: 05/17/16 10:21 Dose: 40 mg Rosuvastatin Calcium (Crestor -) 5 mg PO HS [facility] Last Admin: 05/16/16 21:41 Dose: 5 mg Tiotropium [place] (Spiriva -) 1 puff IH DAILY [facility] Last Admin: 05/17/16 10:21 Dose: 1 puff - Objective Vital Signs: Vital Signs Temperature 98.1 F 05/17/16 06:00 Pulse Rate 124 H 05/17/16 10:20 Respiratory Rate 18 05/17/16 06:00 Blood Pressure 118/70 05/17/16 06:00 O2 Sat by Pulse Oximetry (%) 96 05/16/16 21:00 Constitutional: Yes: Calm Cardiovascular: Yes: Pulse Irregular Respiratory: Yes: Diminished. No: Rales, Wheezes Gastrointestinal: Yes: Soft, Distention. No: Tenderness Genitourinary: No: Lucas Present Edema: No Labs: CBC, BMP 05/17/16 05:35 05/17/16 05:35 INR, PTT INR 1.48 (0.82-1.09) H 05/13/16 20:48 Problem List - Problems (1) Acute exacerbation of chronic obstructive airways disease Assessment/Plan: Much improved breathing even off IV Steroids. Code(s): J44.1 - CHRONIC OBSTRUCTIVE PULMONARY DISEASE W (ACUTE) EXACERBATION (2) ASHD (arteriosclerotic heart disease) Assessment/Plan: Followed by Cardiology;no new Rx ordered. Code(s): I25.10 - ATHSCL HEART DISEASE OF [place] CORONARY ARTERY W/O ANG PCTRS (3) Atrial fibrillation with rapid ventricular response Assessment/Plan: Occ. rapid paroxysms; on anticoagulation. Code(s): I48.91 - UNSPECIFIED ATRIAL FIBRILLATION (4) HTN (hypertension) Code(s): I10 - ESSENTIAL (PRIMARY) HYPERTENSION (5) Hyperthyroidism Assessment/Plan: On Rx. Code(s): E05.90 - THYROTOXICOSIS, UNSP WITHOUT THYROTOXIC CRISIS OR STORM (6) Confusion Assessment/Plan: Did not occur again last nite. Code(s): R41.0 - DISORIENTATION, UNSPECIFIED (7) Diabetes mellitus type 2 in nonobese Assessment/Plan: Hb A1C 7.2 with no previous HX of DM?? Will D/C concentrated sweets from diet. Code(s): E11.9 - TYPE 2 DIABETES MELLITUS WITHOUT COMPLICATIONS
[2016-05-17] MEDS: POLYETHYLENE GLYCOL 3350 119 GM BTL PO SCH (13:55)
[2016-05-17] MEDS: ROSUVASTATIN CA 10 MG TABLET (FP) PO SCH (21:52)
[2016-05-18 07:13] LABS: BASOPHIL 0.2 % (0-2.0); EOSINOPHIL 0.3 % (0-4.5); MCH 28.9 pg (25.7-33.7); MCHC 32.7 g/dl (32.0-36.0); MEAN CELL VOLUME 88.5 fl (80-96); MEAN PLT VOLUME 8.6 fl (7.5-11.1); NEUTROPHILS 70.5 % (42.8-82.8); PLATELET COUNT 232 K/MM3 (134-434); WHITE BLOOD COUNT 12.1 K/mm3 (4.0-10.0)
[2016-05-18 07:49] LABS: CALCIUM 8.6 mg/dL (8.5-10.1)
[2016-05-18] MEDS: PANTOPRAZOLE 40 MG TABLET (FP) PO SCH (09:51)
[2016-05-18] MEDS: DIGOXIN 0.125 MG TABLET (FP) PO SCH (09:51)
[2016-05-18] MEDS: APIXABAN 5 MG TABLET PO SCH (09:51)
[2016-05-18] MEDS: POLYETHYLENE GLYCOL 3350 119 GM BTL PO SCH (09:51)
[2016-05-18] MEDS: ASPIRIN 81 MG CHEWABLE TABLETS PO SCH (09:51)
[2016-05-18 09:52] VITALS: PULSE 84
[2016-05-18] MEDS: TIOTROPIUM BROMIDE 18 MCG/INH (DEVICE W/ 30 CAPSULES) IH SCH ×2 (09:52→13:00)
[2016-05-18] MEDS: METHIMAZOLE 10 MG TABLET (FP) PO SCH (09:52)
--- NOTE | 2016-05-18 10:35 | PN ---
Progress Note, Physician History of Present Illness: PULMONARY ALERT,FEELING BETTER,-SOB,-COUGH. - Current Medication List Current Medications: Active Medications Acetaminophen (Tylenol -) 650 mg PO Q6H PRN PRN Reason: FEVER OR PAIN Last Admin: 05/14/16 16:37 Dose: 650 mg Albuterol Sulfate (Ventolin 0.083% Nebulizer Soln -) 1 amp NEB Q4H PRN PRN Reason: SHORT OF BREATH/WHEEZING Last Admin: 05/16/16 21:45 Dose: 1 amp Apixaban (Eliquis -) 5 mg PO BID [facility] Last Admin: 05/18/16 09:51 Dose: 5 mg Aspirin (Asa -) 81 mg PO DAILY [facility] Last Admin: 05/18/16 09:51 Dose: 81 mg Digoxin (Lanoxin -) 0.125 mg PO DAILY [facility] Last Admin: 05/18/16 09:51 Dose: 0.125 mg Diltiazem HCl (Cardizem Cd -) 240 mg PO DAILY [facility] Last Admin: 05/18/16 09:51 Dose: 240 mg Methimazole (Tapazole -) 10 mg PO DAILY [facility] Last Admin: 05/18/16 09:52 Dose: 10 mg Pantoprazole Sodium (Protonix -) 40 mg PO DAILY [facility] Last Admin: 05/18/16 09:51 Dose: 40 mg Polyethylene Glycol (Miralax (For Daily Use) -) 17 gm PO DAILY [facility] Last Admin: 05/18/16 09:51 Dose: 17 gm Rosuvastatin Calcium (Crestor -) 5 mg PO HS [facility] Last Admin: 05/17/16 21:52 Dose: 5 mg Tiotropium [place] (Spiriva -) 1 puff IH DAILY [facility] Last Admin: 05/17/16 10:21 Dose: 1 puff - Objective Vital Signs: Vital Signs Temperature 97.9 F 05/18/16 06:00 Pulse Rate 84 05/18/16 09:51 Respiratory Rate 18 05/18/16 06:00 Blood Pressure 100/71 05/18/16 06:00 O2 Sat by Pulse Oximetry (%) 96 05/17/16 21:00 Constitutional: Yes: Well Nourished, Calm Eyes: Yes: WNL HENT: Yes: WNL Neck: Yes: WNL Cardiovascular: Yes: Pulse Irregular, S1, S2 Respiratory: Yes: CTA Bilaterally Gastrointestinal: Yes: Normal Bowel Sounds, Soft Extremities: Yes: WNL Edema: No Labs: CBC, BMP 05/18/16 05:35 05/18/16 05:35 INR, PTT INR 1.48 (0.82-1.09) H 05/13/16 20:48 - ....Imaging Cat Scan: Image Reviewed (-MASS,-INFILTRATES) Problem List - Problems (1) Shortness of breath Code(s): R06.02 - SHORTNESS OF BREATH (2) ASHD (arteriosclerotic heart disease) Code(s): I25.10 - ATHSCL HEART DISEASE OF [place] CORONARY ARTERY W/O ANG PCTRS (3) Afib Code(s): I48.91 - UNSPECIFIED ATRIAL FIBRILLATION (4) Atrial fibrillation with rapid ventricular response Code(s): I48.91 - UNSPECIFIED ATRIAL FIBRILLATION (5) HLD (hyperlipidemia) Code(s): E78.5 - HYPERLIPIDEMIA, UNSPECIFIED (6) HTN (hypertension) Code(s): I10 - ESSENTIAL (PRIMARY) HYPERTENSION (7) Asthmatic bronchitis Code(s): J45.909 - UNSPECIFIED ASTHMA, UNCOMPLICATED (8) COPD (chronic obstructive pulmonary disease) Code(s): J44.9 - CHRONIC OBSTRUCTIVE PULMONARY DISEASE, UNSPECIFIED Qualifiers : COPD type: COPD with acute exacerbation Qualified Code(s): J44.1 - Chronic obstructive pulmonary disease with (acute) exacerbation Assessment/Plan IMP ASTHMATIC BRONCHITIS improved CHF improving COPD BY PFTS AFIB ASHD S/P STENT PULMONARY HTN MGUS PLAN INHALED BRONCHODILATORS PRN SPIRIVA ANTICOAGULATION O2 R[address] CONTR[address] BUSTOS Problem List - Problems (1) Shortness of breath Code(s): R06.02 - SHORTNESS OF BREATH (2) ASHD (arteriosclerotic heart disease) Code(s): I25.10 - ATHSCL HEART DISEASE OF [place] CORONARY ARTERY W/O ANG PCTRS (3) Afib Code(s): I48.91 - UNSPECIFIED ATRIAL FIBRILLATION (4) Atrial fibrillation with rapid ventricular response Code(s): I48.91 - UNSPECIFIED ATRIAL FIBRILLATION (5) HLD (hyperlipidemia) Code(s): E78.5 - HYPERLIPIDEMIA, UNSPECIFIED (6) HTN (hypertension) Code(s): I10 - ESSENTIAL (PRIMARY) HYPERTENSION (7) Asthmatic bronchitis Code(s): J45.909 - UNSPECIFIED ASTHMA, UNCOMPLICATED (8) COPD (chronic obstructive pulmonary disease) Code(s): J44.9 - CHRONIC OBSTRUCTIVE PULMONARY DISEASE, UNSPECIFIED
--- NOTE | 2016-05-18 11:00 | PN ---
Progress Note, Physician Chief Complaint: afib, copd History of Present Illness: sob resolved; no wheezing; no palpitations/cp no more VAUGHAN - Current Medication List Current Medications: Active Medications Acetaminophen (Tylenol -) 650 mg PO Q6H PRN PRN Reason: FEVER OR PAIN Last Admin: 05/14/16 16:37 Dose: 650 mg Albuterol Sulfate (Ventolin 0.083% Nebulizer Soln -) 1 amp NEB Q4H PRN PRN Reason: SHORT OF BREATH/WHEEZING Last Admin: 05/16/16 21:45 Dose: 1 amp Apixaban (Eliquis -) 5 mg PO BID [facility] Last Admin: 05/18/16 09:51 Dose: 5 mg Aspirin (Asa -) 81 mg PO DAILY [facility] Last Admin: 05/18/16 09:51 Dose: 81 mg Digoxin (Lanoxin -) 0.125 mg PO DAILY [facility] Last Admin: 05/18/16 09:51 Dose: 0.125 mg Diltiazem HCl (Cardizem Cd -) 240 mg PO DAILY [facility] Last Admin: 05/18/16 09:51 Dose: 240 mg Methimazole (Tapazole -) 10 mg PO DAILY [facility] Last Admin: 05/18/16 09:52 Dose: 10 mg Pantoprazole Sodium (Protonix -) 40 mg PO DAILY [facility] Last Admin: 05/18/16 09:51 Dose: 40 mg Polyethylene Glycol (Miralax (For Daily Use) -) 17 gm PO DAILY [facility] Last Admin: 05/18/16 09:51 Dose: 17 gm Rosuvastatin Calcium (Crestor -) 5 mg PO HS [facility] Last Admin: 05/17/16 21:52 Dose: 5 mg Tiotropium [place] (Spiriva -) 1 puff IH DAILY [facility] Last Admin: 05/17/16 10:21 Dose: 1 puff - Objective Vital Signs: Vital Signs Temperature 97.9 F 05/18/16 06:00 Pulse Rate 84 05/18/16 09:51 Respiratory Rate 18 05/18/16 06:00 Blood Pressure 100/71 05/18/16 06:00 O2 Sat by Pulse Oximetry (%) 96 05/17/16 21:00 Constitutional: Yes: Well Nourished, No Distress, Calm Cardiovascular: Yes: Pulse Irregular, S1, S2. No: Gallop, Murmur Respiratory: Yes: Regular, CTA Bilaterally. No: Accessory Muscle Use, Rales, Rhonchi, Wheezes Extremities: No: Cold Edema: No Neurological: Yes: Alert, Oriented Labs: CBC, BMP 05/18/16 05:35 05/18/16 05:35 INR, PTT INR 1.48 (0.82-1.09) H 05/13/16 20:48 - ....Imaging EKG: Other (tele: AF, good HRs) Assessment/Plan Echo 08/2015: Nl lv/rv. EF 65-70%. E to A reversal. Mild Lae. 1+ AR/MR. No RVSP Pharm Stress MPI 2015: No ischemia. Nl EF. PFTs 2014: FEV1/FVC normal, mildly decreased FEV1, decreased FVC, normal TLC, mildly decreased DLCO consistent with obstructive process, possible emphysema Cath/PCI 09/2011: pRCA 80-90% -->BETHANIE, mLAD 60-70%, dLAD 60-70% + FFR, D1 mild diffuse disease Cath/PCI 10/2011: pLAD rota BETHANIE and mLAD rota BETHANIE. 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 a.e. copd with bronchospasm: - intolerant of steroids (psych effects), trying to minimize b-agonists given uncontrolled AF - spiriva added yest by dr rosa--sx's and wheezing on exam much improved - BB held, to minimize bronchospasm exacerbation - does not appear grossly vol overloaded on exam or imaging here, and after iv lasix cr bumped--likely no sig chf at this time--lasix d/c'd paroxysmal atrial fibrillation: -AF here frequently running rapid, likely sec to acute resp distress, standing b -agonist requirements -TSH normal -had required toprol increase from 100 bid to 150 bid to control HRs on prior admit, and again was incr'd recently as outpt -changed to diltiazem 120 bid 05/15given suspicion that hi dose BB may be worsening bronchospasm -05/16: HRs frequently were 130s-140s overnight, following first dose of diltiazem 120 -HRs remain well controlled--cont cardizem CD 240 qd, digoxin (level good here) -cont eliquis for AC CAD s/p stent x 3: - no cp, no signs acs - cont home statin, asa, bb Hypertension: - well controlled - same meds Hyperlipidemia, - continue crestor. D/C TELEMETRY
[2016-05-18 12:13] VITALS: BP 118/64; TEMP 98.2
[2016-05-18] MEDS ORDERED: POTASSIUM CHLORIDE TABS 20 MEQ TABLET.ER (FP) PO ONE (13:00)
--- NOTE | 2016-05-18 14:11 | PN ---
Progress Note, Physician - Current Medication List Current Medications: Active Medications Acetaminophen (Tylenol -) 650 mg PO Q6H PRN PRN Reason: FEVER OR PAIN Last Admin: 05/14/16 16:37 Dose: 650 mg Albuterol Sulfate (Ventolin 0.083% Nebulizer Soln -) 1 amp NEB Q4H PRN PRN Reason: SHORT OF BREATH/WHEEZING Last Admin: 05/16/16 21:45 Dose: 1 amp Apixaban (Eliquis -) 5 mg PO BID [facility] Last Admin: 05/18/16 09:51 Dose: 5 mg Aspirin (Asa -) 81 mg PO DAILY [facility] Last Admin: 05/18/16 09:51 Dose: 81 mg Digoxin (Lanoxin -) 0.125 mg PO DAILY [facility] Last Admin: 05/18/16 09:51 Dose: 0.125 mg Diltiazem HCl (Cardizem Cd -) 240 mg PO DAILY [facility] Last Admin: 05/18/16 09:51 Dose: 240 mg Methimazole (Tapazole -) 10 mg PO DAILY [facility] Last Admin: 05/18/16 09:52 Dose: 10 mg Pantoprazole Sodium (Protonix -) 40 mg PO DAILY [facility] Last Admin: 05/18/16 09:51 Dose: 40 mg Polyethylene Glycol (Miralax (For Daily Use) -) 17 gm PO DAILY [facility] Last Admin: 05/18/16 09:51 Dose: 17 gm Rosuvastatin Calcium (Crestor -) 5 mg PO HS [facility] Last Admin: 05/17/16 21:52 Dose: 5 mg Tiotropium [place] (Spiriva -) 1 puff IH DAILY [facility] Last Admin: 05/18/16 13:00 Dose: 1 puff - Objective Vital Signs: Vital Signs Temperature 98.2 F 05/18/16 10:00 Pulse Rate 84 05/18/16 10:00 Respiratory Rate 22 05/18/16 10:00 Blood Pressure 118/64 05/18/16 10:00 O2 Sat by Pulse Oximetry (%) 95 05/18/16 09:00 Labs: CBC, BMP 05/18/16 05:35 05/18/16 05:35 INR, PTT INR 1.48 (0.82-1.09) H 05/13/16 20:48 Problem List - Problems (1) COPD (chronic obstructive pulmonary disease) Code(s): J44.9 - CHRONIC OBSTRUCTIVE PULMONARY DISEASE, UNSPECIFIED Qualifiers : COPD type: COPD with acute exacerbation Qualified Code(s): J44.1 - Chronic obstructive pulmonary disease with (acute) exacerbation (2) Atrial fibrillation with rapid ventricular response Code(s): I48.91 - UNSPECIFIED ATRIAL FIBRILLATION (3) HLD (hyperlipidemia) Code(s): E78.5 - HYPERLIPIDEMIA, UNSPECIFIED (4) HTN (hypertension) Code(s): I10 - ESSENTIAL (PRIMARY) HYPERTENSION (5) Hyperthyroidism Code(s): E05.90 - THYROTOXICOSIS, UNSP WITHOUT THYROTOXIC CRISIS OR STORM
--- NOTE | 2016-05-27 22:36 | DS ---
Physical Examination Vital Signs: Vital Signs Temperature 98.2 F 05/18/16 10:00 Pulse Rate 84 05/18/16 10:00 Respiratory Rate 22 05/18/16 10:00 Blood Pressure 118/64 05/18/16 10:00 O2 Sat by Pulse Oximetry (%) 95 05/18/16 09:00 Constitutional: Yes: Well Nourished, No Distress, Calm Cardiovascular: Yes: Regular Rate and Rhythm. No: Gallop, Murmur, Rub Respiratory: Yes: Regular, CTA Bilaterally. No: Rales, Rhonchi, Wheezes Gastrointestinal: Yes: Normal Bowel Sounds, Soft. No: Distention, Tenderness Extremities: Yes: WNL Edema: No Labs: CBC, BMP 05/18/16 05:35 05/18/16 05:35 Discharge Summary Reason For Visit: SHORTNESS OF BREATH Hospital Course: (1) COPD (chronic obstructive pulmonary disease) Code(s): J44.9 - CHRONIC OBSTRUCTIVE PULMONARY DISEASE, UNSPECIFIED Qualifiers : COPD type: COPD with acute exacerbation Qualified Code(s): J44.1 - Chronic obstructive pulmonary disease with (acute) exacerbation (2) Atrial fibrillation with rapid ventricular response Code(s): I48.91 - UNSPECIFIED ATRIAL FIBRILLATION (3) HLD (hyperlipidemia) Code(s): E78.5 - HYPERLIPIDEMIA, UNSPECIFIED (4) HTN (hypertension) Code(s): I10 - ESSENTIAL (PRIMARY) HYPERTENSION (5) Hyperthyroidism Code(s): E05.90 - THYROTOXICOSIS, UNSP WITHOUT THYROTOXIC CRISIS OR STORM Ms Cartagena is an 81 year old female who comes in with COPD exacerbation. She was admitted to the hospital and seen by pulmonary. She was placed on IV solumedrol and bronchodilators. She also had afib with rvr and was seen by cardiology. Her breathing improved and her heart rate stabilized. Currently she is safe for discharge home. 32 minutes spent in preparation of this discharge Condition: Good - Instructions Diet, Activity, Other Instructions: resume previous diet and activity Referrals: Pj Lizarraga MD [Staff Physician] - Laci Douglas MD [Staff Physician] - Selvin Rios MD [Primary Care Provider] - Disposition: HOME - Home Medications Comprehensive Discharge Medication List: Ambulatory Orders Aspirin [ASA -] 81 mg PO DAILY 11/20/13 Methimazole 10 mg PO DAILY 11/20/13 Apixaban [Eliquis] 5 mg PO BID 01/15/16 Digoxin [Lanoxin -] 0.125 mg PO DAILY tablet 01/24/16 Rosuvastatin Calcium [Crestor] 5 mg PO HS 05/13/16 Diltiazem Cd [Cardizem Cd -] 240 mg PO DAILY #30 cap.cd.24h 05/18/16 Ipratropium/Albuterol Sulfate [Combivent Respimat Inhal [place]] 4 gm IH TID PRN # 1 aer.w.adap 05/18/16 Tiotropium [place] [Spiriva] 1 puff IH DAILY #1 inh 05/18/16
== END 2016-05-18 15:10 | disposition home or self-care (01) | DRG 191 ==
LOC: JER 17:25 → JERBED 22:44 → J4W 05-15 16:55
PROVIDERS: ADMIT Internal Medicine; ATTEND Internal Medicine
DX: J44.1 Chronic obstructive pulmonary disease with (acute) exacerbation (principal); I50.32 Chronic diastolic (congestive) heart failure; I25.110 Atherosclerotic heart disease of native coronary artery with unstable angina pectoris; K86.2 Cyst of pancreas; E78.00 Pure hypercholesterolemia, unspecified; I48.0 Paroxysmal atrial fibrillation; I11.0 Hypertensive heart disease with heart failure; K21.9 Gastro-esophageal reflux disease without esophagitis; E05.80 Other thyrotoxicosis without thyrotoxic crisis or storm; I27.2 Other secondary pulmonary hypertension; J45.909 Unspecified asthma, uncomplicated; R41.0 Disorientation, unspecified; E04.2 Nontoxic multinodular goiter; D47.2 Monoclonal gammopathy; E11.9 Type 2 diabetes mellitus without complications; Z87.442 Personal history of urinary calculi; Z95.5 Presence of coronary angioplasty implant and graft
CPT/HCPCS: 36415; 71010-TC; 71250-TC; 80048; 80053; 80162; 82550; 83036; 83605; 83735; 83880; 84100; 84439; 84443; 84484; 85025; 85610; 87040; 87254; 87804; 93005; 93010; 94640; 99285-25

== ENCOUNTER 2017-07-16 09:38 | Inpatient (IN) | payer OTHER ==
[2017-07-16] MEDS ORDERED: dilTIAZem HCL 125 MG/25 ML - 25 ML VIAL ONE (09:42)
[2017-07-16] MEDS ORDERED: dilTIAZem HCL 50 MG/10 ML - 10 ML VIAL IVPUSH ONE ×2 (09:47→10:18)
--- NOTE | 2017-07-16 09:47 | PDOC ---
History of Present Illness <Alanna Tran - Last Filed: 07/16/17 13:31> - History of Present Illness Initial Comments: 07/16/17 09:46 82yo F with history of atrial fibrillation (on Eliquis 5mg, Dig and Cardizem) and COPD who is being seen in the ED for shortness of breath and palpitations. Pt speaks mainly [place], however speaks [place]ian as well as [place]. Pt reports feeling short of breath earlier this morning while sitting at home and noticed that she had to stop to catch her breath while doing her ADLs this morning. Pt also states she took her morning medications as normally including her Cardizem 240mg PO, Digoxin 0.125 PO, and Eliquis 5mg PO. She also endorses some epigastric discomfort that started around the same time. Denies any radiation to her back or translocated pain. Denies diarrhea, denies constipation <Ricardo Snow - Last Filed: 07/16/17 14:42> - General Chief Complaint: Shortness of Breath Stated Complaint: A FIB Time Seen by Provider: 07/16/17 09:40 Past History <Alanna Tran - Last Filed: 07/16/17 13:31> - Past Medical History Cardiac Disorders: Yes (A-FIB) COPD: Yes GI Disorders: Yes (gerd) HTN: Yes Hypercholesterolemia: Yes Kidney Stones: Yes Thyroid Disease: Yes - Surgical History Appendectomy: Yes Cardiac Surgery: Yes (STENT X3) - Suicide/Smoking/Psychosocial Hx Smoking Status: No Smoking History: Never smoked Have you smoked in the past 12 months: No Number of Cigarettes Smoked Daily: 0 Information on smoking cessation initiated: No Hx Alcohol Use: No Drug/Substance Use Hx: No Substance Use Type: None <Ricardo Snow - Last Filed: 07/16/17 14:42> - Past Medical History Allergies/Adverse Reactions: Allergies Allergy/AdvReac Type Severity Reaction Status Date / Time shrimp Allergy Verified 05/13/16 17:41 IV DYE Allergy Uncoded 05/13/16 17:41 SHRIMP Allergy Uncoded 05/13/16 17:41 Home Medications: Ambulatory Orders Aspirin [ASA -] 81 mg PO DAILY 11/20/13 Methimazole 10 mg PO DAILY 11/20/13 Apixaban [Eliquis] 5 mg PO BID 01/15/16 Digoxin [Lanoxin -] 0.125 mg PO DAILY tablet 01/24/16 Rosuvastatin Calcium [Crestor] 5 mg PO HS 05/13/16 Diltiazem Cd [Cardizem Cd -] 240 mg PO DAILY #30 cap.cd.24h 05/18/16 Ipratropium/Albuterol Sulfate [Combivent Respimat Inhal [place]] 4 gm IH TID PRN # 1 aer.w.adap 05/18/16 Tiotropium [place] [Spiriva] 1 puff IH DAILY #1 inh 05/18/16 Review of Systems - Review of Systems Constitutional: No: Chills, Fever, Night Sweats, Weakness HEENTM: No: Blurred Vision, Nose Congestion, Throat Pain Respiratory: Yes: Shortness of Breath. No: Cough, Wheezing Cardiac (ROS): Yes: Irregular Heart Rate, Palpitations, Chest Tightness. No: Lightheadedness ABD/GI: Yes: See HPI. No: Abdominal Distended, Constipated, Diarrhea, Nausea, Vomiting : No: Dysuria, Frequency, Flank Pain, Incontinence Musculoskeletal: No: Back Pain, Neck Pain Neurological: No: Headache, Numbness, Tingling, Weakness Psychiatric: No: Anxiety <Ricardo Snow - Last Filed: 07/16/17 14:42> *Physical Exam - Vital Signs Last Vital Signs Temp Pulse Resp BP Pulse Ox 98.4 F 133 H 26 H 102/53 100 07/16/17 09:40 07/16/17 13:24 07/16/17 13:24 07/16/17 13:24 07/16/17 13:24 <Alanna Tran - Last Filed: 07/16/17 13:31> - Vital Signs Last Vital Signs Temp Pulse Resp BP Pulse Ox 98.4 F 155 H 32 H 152/104 99 07/16/17 09:40 07/16/17 09:40 07/16/17 09:40 07/16/17 09:40 07/16/17 09:40 - Physical Exam Comments: 07/16/17 09:40 GEN: Mild distress, awake, alert, sitting up in bed HEENT: EOMI, BLAIR, dry-moist mucosa, No JVD noted LUNG: Diminished breath sounds at the b/l bases, tachypneic, no wheezing or rhonchi auscultated CARDIAC: Irregularly irregular and tachycardic at 143bpm, no murmurs appreciated ABDOMEN: Soft, nondistended, nontender, normoactive BS, no guarding, no rebound Ext: No edema, warm, cap refill <2sec, 2+ DP pulses <Ricardo Snow - Last Filed: 07/16/17 14:42> Heart Score/ECG Review #1 07/16/17 09:40 Atrial fibrillation at a rate of 139bpm. No acute ST elevations appreciated, normal axis, QTc 477 <Ricardo Snow - Last Filed: 07/16/17 14:42> ED Treatment Course - LABORATORY CBC & Chemistry Diagram: 07/16/17 10:05 07/16/17 10:05 - ADDITIONAL ORDERS Additional order review: Laboratory Results 07/16/17 07/16/17 10:05 10:05 PT with INR 25.50 H INR 2.26 H D PTT (Actin FS) 29.0 Sodium 140 Potassium 4.0 Chloride 103 Carbon Dioxide 27 Anion Gap 10 BUN 36 H Creatinine 1.3 H Creat Clearance w eGFR 39.21 Random Glucose 220 H Calcium 8.9 Total Bilirubin 0.6 AST 45 H ALT 89 H Alkaline Phosphatase 108 Troponin I 0.03 Total Protein 6.9 Albumin 3.5 Digoxin 0.1406 L 07/16/17 10:05 RBC 3.91 MCV 89.1 MCHC 33.4 RDW 14.5 MPV 9.2 Neutrophils % 84.8 H D Lymphocytes % 9.5 D Monocytes % 4.5 Eosinophils % 0.3 Basophils % 0.9 D - Medications Given in the ED: ED Medications Discontinued Medications Generic Name Dose Route Start Last Admin Trade Name Freq PRN Reason Stop Dose Admin Diltiazem HCl 10 mg 07/16/17 09:47 07/16/17 09:47 Cardizem Injection - IVPUSH 07/16/17 09:48 10 mg ONCE ONE Administration Diltiazem HCl 10 mg 07/16/17 10:18 07/16/17 10:30 Cardizem Injection - IVPUSH 07/16/17 10:19 10 mg ONCE ONE Administration Sodium Chloride 500 mls @ 500 mls/hr 07/16/17 10:18 07/16/17 10:30 Normal Saline - IV 07/16/17 11:17 500 mls/hr ASDIR STA Administration Metoprolol Tartrate 5 mg 07/16/17 12:38 07/16/17 12:47 Lopressor Injection - IVPUSH 07/16/17 12:39 5 mg ONCE ONE Administration <Alanna Tran - Last Filed: 07/16/17 13:31> - LABORATORY CBC & Chemistry Diagram: 07/16/17 10:05 07/16/17 10:05 <Ricardo Snow - Last Filed: 07/16/17 14:42> Medical Decision Making - Critical Care Time Total Critical Care Time (minutes): 35 Critical Care Statement: The care of this patient involved high complexity decision making to prevent further life threatening deterioration of the patient 's condition and/or to evaluate & treat vital organ system(s) failure or risk of failure. - Medical Decision Making 07/16/17 10:10 EKG showing Afib with RVR; BP 166/133, no ST changes acutely --Cardizem 10mg IVP now --Monitor --CBC, CMP, Dig level, Trop --CXR 07/16/17 10:53 CXR - B/l effusions noted at the bases --Most likely due to a fib with RVR Labs revealed Trop WNL;; 07/16/17 11:17 BP continues to be stable at 125/89; HR stable at 110-[address] Gage Digoxin level pending 07/16/17 11:50 Second call for cardiology placed --Recommends lopressor pushes as long as HR and BP can tolerate if pt develops RVR Pending admission for WAN Giles --Spoke with WAN Giles and kash for admission 07/16/17 12:58 Pt began to develop some SOB and increased work of breathing BiPap initiated at 12/6/40%/14 07/16/17 1330 Pt's tachycardia continues to be persisntant --Cardizem gtt initiated --Pressures stable last blood pressure 135/94 <Ricardo Snow - Last Filed: 07/16/17 14:42> *DC/Admit/Observation/Transfer - Discharge Dispostion Admit: Yes <Alanna Tran - Last Filed: 07/16/17 13:31> - Discharge Dispostion Admit: Yes <Ricardo Snow - Last Filed: 07/16/17 14:42> Diagnosis at time of Disposition: Shortness of breath Atrial fibrillation Qualifiers: Atrial fibrillation type: chronic Qualified Code(s): I48.2 - Chronic atrial fibrillation - Discharge Dispostion Condition at time of disposition: Critical
--- NOTE | 2017-07-16 09:56 | PDOC ---
Attending Attestation - Resident Resident Name: Ricardo Snow - ED Attending Attestation I have performed the following: I have examined & evaluated the patient, The case was reviewed & discussed with the resident, I agree w/resident's findings & plan, Exceptions are as noted - HPI HPI: 82 yo F history afib, COPD presents with SOB since this AM. She was brought in via EMS with finding of afib with RVR. She took her regular morning medications today. No recent fevers, recent illness. No palpitations. - Physicial Exam PE: GENERAL: Awake, alert, and fully oriented. +Tachypnea. HEAD: No signs of trauma EYES: PERRLA, EOMI, sclera anicteric, conjunctiva clear ENT: Auricles normal inspection, hearing grossly normal, nares patent, oropharynx clear without exudates. Moist mucosa NECK: Normal ROM, supple, no lymphadenopathy, JVD, or masses LUNGS: Breath sounds equal, clear to auscultation bilaterally. No wheezes, and no crackles HEART: Irregularly irregular, normal S1 and S2, no murmurs, rubs or gallops ABDOMEN: Soft, nontender, normoactive bowel sounds. No guarding, no rebound. No masses EXTREMITIES: Normal range of motion, no edema. No clubbing or cyanosis. No cords, erythema, or tenderness NEUROLOGICAL: Cranial nerves II through XII grossly intact. Normal speech. Motor and sensation intact. SKIN: Warm, Dry, normal turgor, no rashes or lesions noted. - Medical Decision Making Pt with history of afib presents with afib with RVR. Pt given cardizem 10 mg IVP x2 with improvement. She took her meds this morning including dig. Will d/w cardiology Dr. Weir. Likely admission.
[2017-07-16 10:02] VITALS: BMI 30.2
[2017-07-16 10:16] LABS: BASO % 0.9 % (0-2.0); EOS % 0.3 % (0-4.5); HEMATOCRIT 34.9 % (32.4-45.2); HEMOGLOBIN 11.6 GM/dL (10.7-15.3); LYMPH % 9.5 % (8-40); MCH 29.7 pg (25.7-33.7); MCHC 33.4 g/dl (32.0-36.0); MEAN CELL VOLUME 89.1 fl (80-96); MEAN PLT VOLUME 9.2 fl (7.5-11.1); MONO % 4.5 % (3.8-10.2); NEUT % 84.8 % (42.8-82.8); PLATELET COUNT 246 K/MM3 (134-434); RBC 3.91 M/mm3 (3.60-5.2); RDW 14.5 % (11.6-15.6); WHITE BLOOD COUNT 12.6 K/mm3 (4.0-10.0)
[2017-07-16] MEDS ORDERED: SODIUM CHLORIDE 500 ML IV STA (10:18)
[2017-07-16 10:31] LABS: INR 2.26 (0.82-1.09); PROTHROMBIN TIME (PATIENT) 25.5 SEC (9.98-11.88)
[2017-07-16 10:43] LABS: ALBUMIN 3.5 g/dl (3.4-5.0); ANION GAP 10 (8-16); BILIRUBIN,TOTAL 0.6 mg/dL (0.2-1.0); BLOOD UREA NITROGEN 36 mg/dL (7-18); CALCIUM 8.9 mg/dL (8.5-10.1); CHLORIDE 103 mmol/L (98-107); CO2 27 mmol/L (21-32); CREATININE 1.3 mg/dL (0.55-1.02); GLUCOSE,RANDOM 220 mg/dL (74-106); SGOT/AST 45 U/L (15-37); SGPT/ALT 89 U/L (12-78); SODIUM 140 mmol/L (136-145); TOT PROT 6.9 g/dl (6.4-8.2)
[2017-07-16 10:56] LABS: ALK PHOS 108 U/L (45-117)
[2017-07-16] MEDS ORDERED: METOPROLOL TARTRATE 5 MG/5 ML VIAL IVPUSH ONE (12:38)
[2017-07-16] MEDS ORDERED: METOPROLOL TARTRATE 5 MG/5 ML VIAL ONE (12:42)
--- NOTE | 2017-07-16 13:04 | HP ---
Admitting History and Physical - Primary Care Physician PCP: Selvin Rios - Admission History of Present Illness: is a pleasant 82 year old female with pmh of afib,htn,cad s/p danielle, hld, hyperthyroidism, copd, who presents with worsening sob. Pt reports she has been feeling more sob at home over the last 3-4 days along with mild epigastric pain with no radiation. She also reports fatigue and generalized weakness. Denies any chest discomfort, diaphoresis, n/v/d, fever/chills, abd pain, changes in medications/diet, recent travel, rash, changes in vision, unilateral weakness or slurred speech. She last saw her sorter operator 3-4 months ago. History Source: Patient, Family Member Limitations to Obtaining History: Language Barrier - Past Medical History Cardiovascular: Yes: AFIB, CAD, HTN, Hyperlipdemia Pulmonary: Yes: Asthma Gastrointestinal: Yes: Gastritis, GERD. No: GI Bleed, Peptic Ulcer Disease Endocrine: Yes: Hyperthyroidism - Past Surgical History Past Surgical History: Yes: Appendectomy, Stent (cardiac) Additional Past Surgical History: Thyroidectomy - Smoking History Smoking history: Never smoked Have you smoked in the past 12 months: No Aproximately how many cigarettes per day: 0 - Alcohol/Substance Use Hx Alcohol Use: No History of Substance Use: reports: None - Social History Usual Living Arrangement: Yes: With Spouse ADL: Independent History of Recent Travel: No Home Medications - Allergies Allergies/Adverse Reactions: Allergies Allergy/AdvReac Type Severity Reaction Status Date / Time shrimp Allergy Verified 05/13/16 17:41 IV DYE Allergy Uncoded 05/13/16 17:41 SHRIMP Allergy Uncoded 05/13/16 17:41 - Home Medications Home Medications: Ambulatory Orders Aspirin [ASA -] 81 mg PO DAILY 11/20/13 Methimazole 10 mg PO DAILY 11/20/13 Apixaban [Eliquis] 5 mg PO BID 01/15/16 Digoxin [Lanoxin -] 0.125 mg PO DAILY tablet 01/24/16 Rosuvastatin Calcium [Crestor] 5 mg PO HS 05/13/16 Diltiazem Cd [Cardizem Cd -] 240 mg PO DAILY #30 cap.cd.24h 05/18/16 Ipratropium/Albuterol Sulfate [Combivent Respimat Inhal [place]] 4 gm IH TID PRN # 1 aer.w.adap 05/18/16 Tiotropium [place] [Spiriva] 1 puff IH DAILY #1 inh 05/18/16 Family Disease History - Family Disease History Family History: Unremarkable Review of Systems Findings/Remarks: as per hpi, otherwise negative Physical Examination Vital Signs: Vital Signs Temperature 98.4 F 07/16/17 09:40 Pulse Rate 107 H 07/16/17 10:48 Respiratory Rate 25 H 07/16/17 10:48 Blood Pressure 106/58 07/16/17 12:47 O2 Sat by Pulse Oximetry (%) 100 07/16/17 10:48 Constitutional: Yes: Well Nourished, Mild Distress Cardiovascular: Yes: Tachycardia, Pulse Irregular. No: Bruit, Gallop, Rub Respiratory: Yes: Accessory Muscle Use, On Nasal O2, Rales, SOB, Tachypnea Gastrointestinal: Yes: WNL, Normal Bowel Sounds. No: Distention, Tenderness Renal/: Yes: WNL Labs: CBC, BMP 07/16/17 10:05 07/16/17 10:05 Imaging - Results Chest X-ray: Report Reviewed Ultrasound: Pending (cardiac echo) EKG: Report Reviewed, Image Reviewed Problem List - Problems (1) Atrial fibrillation with rapid ventricular response Assessment/Plan: afib w/ rvr, hr in 120s, bp stable, pt c/o sob/fatigue/weakness ekg with no ischemic changes digoxin level low cardizem drip cardiology consult pending transfer to ICU Code(s): I48.91 - UNSPECIFIED ATRIAL FIBRILLATION (2) Shortness of breath Assessment/Plan: in acute distress, sob with tachypnea, use of accessory muscles satting in 90s bipap abg pending transfer to ICU for further management Code(s): R06.02 - SHORTNESS OF BREATH (3) Transaminitis Assessment/Plan: pt w/ epigastric pain alk phos wnl possibly hepatic congestion, hepatocellular damage lipase/amylase ordered will monitor for now in the acute setting further work up if persists will monitor Code(s): R74.0 - NONSPEC ELEV OF LEVELS OF TRANSAMNS & LACTIC ACID DEHYDRGNSE (4) Leukocytosis Assessment/Plan: possibly secondary to dehydration infectious etiology unlikely chest xray w/ b/l atelectasis ua pending will monitor for now Code(s): D72.829 - ELEVATED WHITE BLOOD CELL COUNT, UNSPECIFIED (5) CARMEN (acute kidney injury) Assessment/Plan: pre-renal will monitor ivf per cardiology echo pending Code(s): N17.9 - ACUTE KIDNEY FAILURE, UNSPECIFIED (6) ASHD (arteriosclerotic heart disease) Assessment/Plan: stable s/p danielle x3 continue asa hold statin in the setting of transaminitis Code(s): I25.10 - ATHSCL HEART DISEASE OF [place] CORONARY ARTERY W/O ANG PCTRS (7) COPD (chronic obstructive pulmonary disease) Assessment/Plan: Asthma and hx of copd exacerbations in past appears stable Code(s): J44.9 - CHRONIC OBSTRUCTIVE PULMONARY DISEASE, UNSPECIFIED Qualifiers: (8) HLD (hyperlipidemia) Assessment/Plan: stable hold statin for now Code(s): E78.5 - HYPERLIPIDEMIA, UNSPECIFIED (9) HTN (hypertension) Assessment/Plan: controlled continue current regimen Code(s): I10 - ESSENTIAL (PRIMARY) HYPERTENSION Qualifiers: Hypertension type: essential hypertension Qualified Code(s): I10 - Essential (primary) hypertension (10) Hyperthyroidism Assessment/Plan: stable tsh wnl continue tapazole Code(s): E05.90 - THYROTOXICOSIS, UNSP WITHOUT THYROTOXIC CRISIS OR STORM
[2017-07-16 13:51] LABS: ARTERIAL BLOOD GAS PCO2 40.6 mmHg (35-45); ARTERIAL BLOOD GAS pH 7.46 (7.35-7.45)
[2017-07-16 13:52] LABS: ARTERIAL BLD GAS O2 SATURATION 99.1 % (90-98.9); ARTERIAL BLOOD GAS BASE EXCESS 4.7 meq/l (-2-2)
[2017-07-16] MEDS ORDERED: PATIENT'S OWN MEDICATION (NON-FORMULARY) (Ipratropium/Albuterol Sulfate [Combivent Respima IH PRN (14:00)
[2017-07-16] MEDS: DILTIAZEM INJECTION 125 MG in SODIUM CHLORIDE 100 ML IVPB SCH (14:06)
--- NOTE | 2017-07-16 14:31 | CON.CARD ---
Cardiology Consult (text) - Consultation Consultation Note: CC: sob, cough hpi: 82 yo f with h/o CAD s/p pRCA BETHANIE 09/2011 for unstable angina (CP/EDWARDS) and later BETHANIE to pLAD and mLAD 10/2011, paroxysmal atrial fibrillation, HTN, HL, diastolic dysfunction, Mild AR/MR, mild pHTN, MGUS, COPD by PFTs (mild obstructive disease-not on inhalers), IGT, gastritis/GERD, multinodular goiter, pancreatic cyst, kidney stones who presents with afib/rvr patient states she had acute worsening of sob this week. Acute worsening today. per family, + dietary indiscretions over holidays. no orthopnea, pnd, le edema, palps, dizziness. s/p diltiazem 10 mg IV x 2 with no improvement. s/p lopressor 5 mg IV x 1 --> improved hr control but only temporarily. diltiazem drip started. sob worsened --> bipap. Note: per report, some concern whether iv lopressor worsened sob. However, per family, sob had already been worsening with elevated heart rates. [employer] U[employer] Web Developer: Dr. Weir PMHx: per hpi. Past surg hx: per hpi fam hx: No fam hx of cardiac disease social hx: never tob, no etoh or illicits ros: per hpi; no nvd, fcs, quesada, vision changes, bleeding, rashes. meds: Ambulatory Orders Aspirin [ASA -] 81 mg PO DAILY 11/20/13 Methimazole 10 mg PO DAILY 11/20/13 Apixaban [Eliquis] 5 mg PO BID 01/15/16 Digoxin [Lanoxin -] 0.125 mg PO DAILY tablet 01/24/16 Rosuvastatin Calcium [Crestor] 5 mg PO HS 05/13/16 pt not on diltiazem at home, she is on toprol 100 mg qam and 50 mg qpm. Ipratropium/Albuterol Sulfate [Combivent Respimat Inhal [place]] 4 gm IH TID PRN # 1 aer.w.adap 05/18/16 Tiotropium [place] [Spiriva] 1 puff IH DAILY #1 inh 05/18/16 Current Medications Apixaban (Eliquis -) 5 mg PO BID [facility] Aspirin (Asa -) 81 mg PO DAILY [facility] Digoxin (Lanoxin -) 0.125 mg PO DAILY [facility] Diltiazem HCl 125 mg/ Sodium (Chloride) 125 mls @ 5 mls/hr IVPB TITR RICKEY; 5 MG/ HR PRN Reason: Protocol Last Admin: 07/16/17 14:06 Dose: 5 mg/hr, 5 mls/hr Methimazole (Tapazole -) 10 mg PO DAILY [facility] Non-Formulary Medication (Ipratropium/Albuterol Sulfate [Combivent Respimat Inhal [place]]) 4 gm IH TID PRN PRN Reason: SHORT OF BREATH/WHEEZING Tiotropium [place] (Spiriva -) 1 puff IH DAILY [facility] pe: Vital Signs - 24 hr 07/16/17 07/16/17 07/16/17 09:40 10:20 10:23 Temperature 98.4 F Pulse Rate 155 H Pulse Rate [ Apical] Respiratory 32 H Rate Blood Pressure 152/104 Blood Pressure [Right Arm] O2 Sat by Pulse 99 100 100 Oximetry (%) 07/16/17 07/16/17 07/16/17 10:29 10:48 12:47 Temperature Pulse Rate Pulse Rate [ 129 H 107 H Apical] Respiratory 26 H 25 H Rate Blood Pressure 106/58 Blood Pressure 129/90 125/89 [Right Arm] O2 Sat by Pulse 100 100 Oximetry (%) 07/16/17 07/16/17 13:24 14:06 Temperature Pulse Rate 142 H Pulse Rate [ 133 H Apical] Respiratory 26 H Rate Blood Pressure 135/94 Blood Pressure 102/53 [Right Arm] O2 Sat by Pulse 100 Oximetry (%) Intake & Output 07/14/17 07/15/17 07/16/17 07/17/17 07:59 07:59 07:59 07:59 Weight 155 lb NAD, calm on bipap JVD at clavicle, neck supple cta bl nl eff irregular rhythm, tachycardic. nl s1, s2. 2/6 sys murmur at apex. + bs soft nt nd, obese ext trace edema. no c/c no jaundice, diaphoresis aaox3 pos dp pt no carotid bruits CBC, BMP 07/16/17 10:05 07/16/17 10:05 Laboratory Tests 07/16/17 07/16/17 07/16/17 10:05 13:40 18:00 ABG pH 7.46 H ABG pCO2 at Pt Temp 40.6 ABG pO2 at Pt Temp 145.0 H Creatine Kinase 45 Troponin I 0.03 0.05 TSH 2.01 Digoxin 0.1406 L ekg: pending tele: afib rvr 120's cxr: increased retrocardiac density, atelectasis vs. infiltrate. echo 07/2017: mild-mod decreased sys fn. EF may be underestimated due to afib rhythm. Nl rv size/fn. 1+ lae. mild-mod mr/tr. Echo 08/2015: Nl lv/rv. EF 65-70%. E to A reversal. Mild Lae. 1+ AR/MR. No RVSP PFTs 2014: FEV1/FVC normal, mildly decreased FEV1, decreased FVC, normal TLC, mildly decreased DLCO consistent with obstructive process, possible emphysema Cath/PCI 09/2011: pRCA 80-90% -->BETHANIE, mLAD 60-70%, dLAD 60-70% + FFR, D1 mild diffuse disease Cath/PCI 10/2011: pLAD rota BETHANIE and mLAD rota BETHANIE. ASSESSMENT/PLAN 82 yo f with h/o CAD s/p pRCA BETHANIE 09/2011 for unstable angina (CP/EDWARDS) and later BETHANIE to pLAD and mLAD 10/2011, paroxysmal atrial fibrillation, HTN, HL, diastolic dysfunction, 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 Has tolerated toprol 100 mg qam and 50 mg qpm as outpatient (in combo with digoxin). Some question of whether she may have had bronchospasm at higher doses on prior admission. However, was paraflu + at that time. - currently placed on diltiazem by ER, with questionable report of worsened sob after iv lopressor. Patient with newly decreased systolic function, ccb contraindicated. Will plan on continuing dilt drip overnight and weaning drip tomorrow am by starting lopressor tid in the am (monitor for bronchospasm), in combination with low dose amiodarone. Con't dig. monitor level with the addition of amio. Recommend checking again for respiratory viruses in case infection is contributing to bronchospasm like in the past. - check tsh - lyte repletion prn. new systolic dysfunction - likely tachymyopathy, but patient with underlying cad. con't mell. Patient/ family wish to avoid invasive procedures. Will plan on repeating echo once heart rate controlled. If still depressed, then can discuss with patient/ family whether they want to pursue ischemic evaluation. - switch from ccb to bb as mentioned above. - will reassess need for diuretics once better rate controlled. In the meanwhile, con't current po dose of torsemide 20 mg QOD. - daily weights, i/o's. cad - ischemic evaluation as mentioned above. - resume statin, con't asa htn/hl - meds as above.
[2017-07-16 14:41] LABS: AMYLASE 42 U/L (25-115); LIPASE 57 U/L (73-393)
--- NOTE | 2017-07-16 17:39 | PN ---
Teaching Attending Note Name of Resident: Ching Mir ATTENDING PHYSICIAN STATEMENT I saw and evaluated the patient. I reviewed the resident's note and discussed the case with the resident. I agree with the resident's findings and plan as documented. SUBJECTIVE: 82 F, AFib, HTN, CAD, PCI, appendectomy, HPL, hyperthyroidism, GERD, and mild COPD. Admitted via the ER due to progressive SOB over the past 3 to 4 days. Also reports mild epigastric pain. No bowel change. Denies any chest discomfort. No apparent recent travel history or sick contacts. No neurologic symptoms. Due to respiratory distress she was placed on NIPPV with improvement. CXR: Questionable LLL atelectasis Intake & Output 07/13/17 07/14/17 07/15/17 07/16/17 23:59 23:59 23:59 23:59 Weight 155 lb Last Vital Signs Temp Pulse Resp BP Pulse Ox 98.4 F 109 H 24 125/71 100 07/16/17 09:40 07/16/17 16:52 07/16/17 16:52 07/16/17 16:52 07/16/17 16:52 Active Medications Apixaban (Eliquis -) 5 mg PO BID [facility] Aspirin (Asa -) 81 mg PO DAILY [facility] Digoxin (Lanoxin -) 0.125 mg PO DAILY [facility] Diltiazem HCl 125 mg/ Sodium (Chloride) 125 mls @ 5 mls/hr IVPB TITR RICKEY; 5 MG/ HR PRN Reason: Protocol Last Titration: 07/16/17 15:04 Dose: 10 mg/hr, 10 mls/hr Methimazole (Tapazole -) 10 mg PO DAILY [facility] Non-Formulary Medication (Ipratropium/Albuterol Sulfate [Combivent Respimat Inhal [place]]) 4 gm IH TID PRN PRN Reason: SHORT OF BREATH/WHEEZING Tiotropium [place] (Spiriva -) 1 puff IH DAILY [facility]ICKEY Constitutional: Yes: Awake, NAD on NIPPV Cardiovascular: Yes: Tachycardia, Pulse Irregular. No: Bruit, Gallop, Rub Respiratory: Yes: Accessory Muscle Use, On Nasal O2, Rales, SOB, Tachypnea Gastrointestinal: Yes: WNL, Normal Bowel Sounds. No: Distention, Tenderness Renal/: Yes: WNL Labs: Laboratory Results - last 24 hr 07/16/17 07/16/1718 10:05 10:05 10:05 WBC 12.6 H RBC 3.91 Hgb 11.6 Hct 34.9 MCV 89.1 MCH 29.7 MCHC 33.4 RDW 14.5 Plt Count 246 MPV 9.2 Neutrophils % 84.8 H D Lymphocytes % 9.5 D Monocytes % 4.5 Eosinophils % 0.3 Basophils % 0.9 D PT with INR 25.50 H INR 2.26 H D PTT (Actin FS) 29.0 Anticoagulation Therapy Puncture Site ABG pH ABG pCO2 at Pt Temp ABG pO2 at Pt Temp ABG HCO3 ABG O2 Sat (Measured) ABG O2 Content ABG Base Excess Edward Test O2 Delivery Device Oxygen Flow Rate Vent Mode Vent Rate Mechanical Rate Pressure Support Vent Sodium 140 Potassium 4.0 Chloride 103 Carbon Dioxide 27 Anion Gap 10 BUN 36 H Creatinine 1.3 H Creat Clearance w eGFR 39.21 Random Glucose 220 H Calcium 8.9 Total Bilirubin 0.6 AST 45 H ALT 89 H Alkaline Phosphatase 108 Troponin I 0.03 Total Protein 6.9 Albumin 3.5 Total Amylase 42 Lipase 57 L Digoxin 0.1406 L 07/16/17 07/16/17 13:40 14:29 WBC RBC Hgb Hct MCV MCH MCHC RDW Plt Count MPV Neutrophils % Lymphocytes % Monocytes % Eosinophils % Basophils % PT with INR INR PTT (Actin FS) Anticoagulation Therapy No Result Required. Puncture Site Right brachial ABG pH 7.46 H ABG pCO2 at Pt Temp 40.6 ABG pO2 at Pt Temp 145.0 H ABG HCO3 28.5 H ABG O2 Sat (Measured) 99.1 H ABG O2 Content 15.7 ABG Base Excess 4.7 H Edward Test No Result Required. O2 Delivery Device No Result Required. Oxygen Flow Rate 3l Vent Mode No Result Required. Vent Rate No Result Required. Mechanical Rate No Result Required. Pressure Support Vent No Result Required. Sodium Potassium Chloride Carbon Dioxide Anion Gap BUN Creatinine Creat Clearance w eGFR Random Glucose Calcium Total Bilirubin AST ALT Alkaline Phosphatase Troponin I Total Protein Albumin Total Amylase Cancelled Lipase Cancelled Digoxin Imaging - Results Chest X-ray: Report Reviewed Ultrasound: Pending (cardiac echo) EKG: Report Reviewed, Image Reviewed Problem List - Problems (1) Atrial fibrillation with rapid ventricular response Assessment/Plan: Code(s): I48.91 - UNSPECIFIED ATRIAL FIBRILLATION (2) Shortness of breath Assessment/Plan: Code(s): R06.02 - SHORTNESS OF BREATH (3) Transaminitis Assessment/Plan: Code(s): R74.0 - NONSPEC ELEV OF LEVELS OF TRANSAMNS & LACTIC ACID DEHYDRGNSE (4) Leukocytosis Assessment/Plan: Code(s): D72.829 - ELEVATED WHITE BLOOD CELL COUNT, UNSPECIFIED (5) CARMEN (acute kidney injury) Assessment/Plan: Code(s): N17.9 - ACUTE KIDNEY FAILURE, UNSPECIFIED (6) ASHD (arteriosclerotic heart disease) Assessment/Plan: Code(s): I25.10 - ATHSCL HEART DISEASE OF [place] CORONARY ARTERY W/O ANG PCTRS (7) COPD (chronic obstructive pulmonary disease) Assessment/Plan: Code(s): J44.9 - CHRONIC OBSTRUCTIVE PULMONARY DISEASE, UNSPECIFIED Qualifiers: (8) HLD (hyperlipidemia) Assessment/Plan: Code(s): E78.5 - HYPERLIPIDEMIA, UNSPECIFIED (9) HTN (hypertension) Assessment/Plan: Code(s): I10 - ESSENTIAL (PRIMARY) HYPERTENSION Qualifiers: Hypertension type: essential hypertension Qualified Code(s): I10 - Essential (primary) hypertension (10) Hyperthyroidism Assessment/Plan: Code(s): E05.90 - THYROTOXICOSIS, UNSP WITHOUT THYROTOXIC CRISIS OR STORM PLAN: Rate control: Cardizem drip NIPPV support Cardiology evaluation Follow Renal function Strict I & O Monitor off systemic steroids BD TX Spiriva OD Follow cardiac enzymes Check TFTs ICU monitoring Dr Tripp Critical care time spent in reviewing chart, evaluating patient and formulating plan - 36 minutes.
--- NOTE | 2017-07-16 17:58 | CONSULT ---
Consultation: REQUESTING PROVIDER: CONSULT REQUEST: We have been asked to medically evaluate this patient for respiratory status on bipap and afib with RVR. HISTORY OF PRESENT ILLNESS: 82F with PMH of paroxysmal afib, diastolic CHF, htn, CAD, hld, hyperthyroidism, COPD, presents with worsening sob, found to have afib with RVR. Pt reports 1 week of worsening sob and dyspnea on exertion, which got much worse today prompting visit to ER. Pt reports compliance with her medications. Pt reports no change in weight recently. Pt denies chest pain, palpitations, cough, nausea , vomiting, diarrhea, fever, chills, recent illness, sick contacts. REVIEW OF SYSTEMS: CONSTITUTIONAL: Absent: fever, chills, diaphoresis, weight change HEENT: Absent: rhinorrhea, nasal congestion, throat pain, throat swelling, visual changes CARDIOVASCULAR: Absent: chest pain, syncope, palpitations, peripheral edema RESPIRATORY: sob, hernandez Absent: cough, orthopnea, wheezing, stridor GASTROINTESTINAL: Absent: abdominal pain, abdominal distension, nausea, vomiting, diarrhea, constipation MUSCULOSKELETAL: Absent: myalgia, arthralgia SKIN: Absent: rash, itching, pallor HEMATOLOGIC/IMMUNOLOGIC: Absent: easy bleeding, easy bruising, lymphadenopathy ENDOCRINE: Absent: unexplained weight gain, unexplained weight loss NEUROLOGIC: Absent: focal weakness or paresthesias PSYCHIATRIC: Absent: anxiety, depression PHYSICAL EXAMINATION Vital Signs - 24 hr 07/16/17 07/16/17 07/16/17 09:40 10:20 10:23 Temperature 98.4 F Pulse Rate 155 H Pulse Rate [ Apical] Respiratory 32 H Rate Blood Pressure 152/104 Blood Pressure [Right Arm] O2 Sat by Pulse 99 100 100 Oximetry (%) 07/16/17 07/16/17 07/16/17 10:29 10:48 12:47 Temperature Pulse Rate Pulse Rate [ 129 H 107 H Apical] Respiratory 26 H 25 H Rate Blood Pressure 106/58 Blood Pressure 129/90 125/89 [Right Arm] O2 Sat by Pulse 100 100 Oximetry (%) 07/16/17 07/16/17 07/16/17 13:24 13:45 14:06 Temperature Pulse Rate 142 H Pulse Rate [ 133 H Apical] Respiratory 26 H Rate Blood Pressure 135/94 Blood Pressure 102/53 [Right Arm] O2 Sat by Pulse 100 100 Oximetry (%) 07/16/17 07/16/17 15:04 16:52 Temperature Pulse Rate 130 H Pulse Rate [ 109 H Apical] Respiratory 24 Rate Blood Pressure 115/73 Blood Pressure 125/71 [Right Arm] O2 Sat by Pulse 100 100 Oximetry (%) GENERAL: Awake, alert, and fully oriented, in no acute distress, on bipap. HEAD: Normal with no signs of trauma. EYES: Extraocular movements intact, sclera anicteric, conjunctiva clear. No lid lag. EARS, NOSE, THROAT: Moist mucous membranes. NECK: Supple without JVD. LUNGS: Scattered rhonchi appreciated. HEART: irregularly irregular, +S1/S2, without murmur, rub or gallop. ABDOMEN: Soft, nontender, not distended, no guarding. LOWER EXTREMITIES: Warm, well-perfused. No calf tenderness. No peripheral edema. NEUROLOGICAL: Cranial nerves II-XII grossly intact. Normal speech. PSYCHIATRIC: Cooperative. Good eye contact. Appropriate mood and affect. SKIN: Warm, dry, normal turgor, no rashes or lesions noted. Laboratory Results - last 24 hr 07/16/17 07/16/17 07/16/17 10:05 10:05 10:05 WBC 12.6 H RBC 3.91 Hgb 11.6 Hct 34.9 MCV 89.1 MCH 29.7 MCHC 33.4 RDW 14.5 Plt Count 246 MPV 9.2 Neutrophils % 84.8 H D Lymphocytes % 9.5 D Monocytes % 4.5 Eosinophils % 0.3 Basophils % 0.9 D PT with INR 25.50 H INR 2.26 H D PTT (Actin FS) 29.0 Anticoagulation Therapy Puncture Site ABG pH ABG pCO2 at Pt Temp ABG pO2 at Pt Temp ABG HCO3 ABG O2 Sat (Measured) ABG O2 Content ABG Base Excess Edward Test O2 Delivery Device Oxygen Flow Rate Vent Mode Vent Rate Mechanical Rate Pressure Support Vent Sodium 140 Potassium 4.0 Chloride 103 Carbon Dioxide 27 Anion Gap 10 BUN 36 H Creatinine 1.3 H Creat Clearance w eGFR 39.21 Random Glucose 220 H Calcium 8.9 Total Bilirubin 0.6 AST 45 H ALT 89 H Alkaline Phosphatase 108 Troponin I 0.03 Total Protein 6.9 Albumin 3.5 Total Amylase 42 Lipase 57 L Digoxin 0.1406 L 07/16/17 07/16/17 13:40 14:29 WBC RBC Hgb Hct MCV MCH MCHC RDW Plt Count MPV Neutrophils % Lymphocytes % Monocytes % Eosinophils % Basophils % PT with INR INR PTT (Actin FS) Anticoagulation Therapy No Result Required. Puncture Site Right brachial ABG pH 7.46 H ABG pCO2 at Pt Temp 40.6 ABG pO2 at Pt Temp 145.0 H ABG HCO3 28.5 H ABG O2 Sat (Measured) 99.1 H ABG O2 Content 15.7 ABG Base Excess 4.7 H Edward Test No Result Required. O2 Delivery Device No Result Required. Oxygen Flow Rate 3l Vent Mode No Result Required. Vent Rate No Result Required. Mechanical Rate No Result Required. Pressure Support Vent No Result Required. Sodium Potassium Chloride Carbon Dioxide Anion Gap BUN Creatinine Creat Clearance w eGFR Random Glucose Calcium Total Bilirubin AST ALT Alkaline Phosphatase Troponin I Total Protein Albumin Total Amylase Cancelled Lipase Cancelled Digoxin Active Medications Generic Name Dose Route Start Last Admin Trade Name Freq PRN Reason Stop Dose Admin Apixaban 5 mg 07/16/17 22:00 Eliquis - PO BID [facility] Aspirin 81 mg 07/17/17 10:00 Asa - PO DAILY [facility] Digoxin 0.125 mg 07/17/17 10:00 Lanoxin - PO DAILY [facility] Diltiazem HCl 125 mg/ Sodium 125 mls @ 5 mls/hr 07/16/17 13:30 07/16/17 15:04 Chloride IVPB 10 mg/hr TITR RICKEY 10 mls/hr Protocol Titration 5 MG/HR Methimazole 10 mg 07/17/17 10:00 Tapazole - PO DAILY [facility] Non-Formulary Medication 4 gm 07/16/17 14:00 Ipratropium/Albuterol Sulfate [Combivent Respimat Inhal [place]] IH TID PRN SHORT OF BREATH/WHEEZING Tiotropium [place] 1 puff 07/17/17 10:00 Spiriva - IH DAILY [facility] IMAGIN07/16/17 Echo -> Left ventricular systolic function mildly-moderately reduced, EF 54%. Left atrium mildly dilated. Right ventricular systolic pressure normal. 07/16/17 CXR -> no focal consolidation ASSESSMENT/PLAN: 82F with PMH of paroxysmal afib, diastolic CHF, htn, CAD, hld, hyperthyroidism, COPD, presents with worsening sob, found to have afib with RVR. # paroxysmal afib with RVR - rate control with Cardizem drip - continue Eliquis for anticoagulation - Cardiology (Dr. Weir) recs appreciated - f/u cardiac enzymes # diastolic CHF - strict I&O's - Cardiology on board # CAD - continue home med of ASA # htn - continue home med of Metoprolol # sob - continue bipap - maintain SpO2 > 90% # COPD - continue home med of Spiriva, bronchodilator # CARMEN - monitor renal function - avoid nephrotoxic agents # hyperthyroidism - continue home med of Methimazole - f/u TFTs # FEN - Fluids: po - Electrolytes: wnl, continue to monitor - Nutrition: cholesterol/fat/sodium reduced diet # Prophylaxis - DVT ppx with Eliquis Dispo: We will continue to follow the patient. Thank you for this consultative opportunity. Visit type - Emergency Visit Emergency Visit: Yes ED Registration Date: 07/16/17 Care time: The patient presented to the Emergency Department on the above date and was hospitalized for further evaluation of their emergent condition. - New Patient This patient is new to me today: Yes Date on this admission: 07/16/17 - Critical Care Critical Care patient: Yes Total Critical Care Time (in minutes): 45 Critical Care Statement: The care of this patient involved high complexity decision making to prevent further life threatening deterioration of the patient 's condition and/or to evaluate & treat vital organ system(s) failure or risk of failure.
[2017-07-16] MEDS ORDERED: ROSUVASTATIN CA 5 MG TABLET (FP) PO SCH (22:00)
[2017-07-16 23:26] LABS: URINE APPEARANCE CLEAR; URINE BILIRUBIN NEGATIVE (<2.0 mg/dL); URINE BLOOD 1+ (NEGATIVE); URINE COLOR LTYELLOW; URINE GLUCOSE (UA) NEGATIVE (NEGATIVE); URINE KETONE NEGATIVE (NEGATIVE); URINE LEUK ESTERASE TRACE (NEGATIVE); URINE NITRITE NEGATIVE (NEGATIVE); URINE PROTEIN NEGATIVE (NEGATIVE); URINE UROBILINOGEN NEGATIVE mg/dL (0.2-1.0)
[2017-07-16] MEDS ORDERED: PNEUMOC 13-VAL CONJ-DIP CRM/PF 0.5 ML DISP.SYRIN IM ONE (23:36)
[2017-07-16] MEDS: APIXABAN 5 MG TABLET PO SCH (23:41)
[2017-07-17 00:27] LABS: EPI CELLS RARE /HPF (FEW); URINE MUCUS RARE
[2017-07-17 06:56] LABS: HEMATOCRIT 32.9 % (32.4-45.2); HEMOGLOBIN 11.3 GM/dL (10.7-15.3); MCH 30.4 pg (25.7-33.7); MCHC 34.4 g/dl (32.0-36.0); MEAN CELL VOLUME 88.5 fl (80-96); MEAN PLT VOLUME 9.3 fl (7.5-11.1); PLATELET COUNT 248 K/MM3 (134-434); RBC 3.71 M/mm3 (3.60-5.2); RDW 14.7 % (11.6-15.6); WHITE BLOOD COUNT 10.3 K/mm3 (4.0-10.0)
[2017-07-17 07:26] LABS: ALBUMIN 3.3 g/dl (3.4-5.0); ANION GAP 7 (8-16); BLOOD UREA NITROGEN 32 mg/dL (7-18); CALCIUM 8.7 mg/dL (8.5-10.1); CHLORIDE 103 mmol/L (98-107); CO2 30 mmol/L (21-32); CREATININE 1.1 mg/dL (0.55-1.02); GLUCOSE,RANDOM 145 mg/dL (74-106); MAGNESIUM 2.1 mg/dL (1.8-2.4); PHOSPHOROUS 3.6 mg/dL (2.5-4.9); POTASSIUM 3.6 mmol/L (3.5-5.1); SGOT/AST 21 U/L (15-37); SGPT/ALT 67 U/L (12-78); SODIUM 140 mmol/L (136-145)
[2017-07-17 07:37] LABS: ALK PHOS 97 U/L (45-117); BILIRUBIN,TOTAL 1.1 mg/dL (0.2-1.0); TOT PROT 6.5 g/dl (6.4-8.2)
--- NOTE | 2017-07-17 08:36 | PN ---
Progress Note (short form) - Note Progress Note: Patient seen and examined in the ICU. Awake and alert on NIPPV. Remains on Cardizem 10mg/hour. Denies CP. Reports SOB is slightly better. CR: No gross change in LLL effusion/atelectasis Intake & Output 07/14/17 07/15/17 07/16/17 07/17/17 23:59 23:59 23:59 23:59 Intake Total 150 Balance 150 Weight 155 lb 162 lb Last Vital Signs Temp Pulse Resp BP Pulse Ox 97.8 F 111 H 20 113/68 100 07/17/17 04:00 07/17/17 07:05 07/17/17 06:00 07/17/17 06:00 07/17/17 07:05 Active Medications Amiodarone HCl (Cordarone -) 100 mg PO DAILY [facility] Apixaban (Eliquis -) 5 mg PO BID [facility] Last Admin: 07/16/17 23:41 Dose: 5 mg Aspirin (Asa -) 81 mg PO DAILY [facility] Digoxin (Lanoxin -) 0.125 mg PO DAILY [facility] Diltiazem HCl 125 mg/ Sodium (Chloride) 125 mls @ 5 mls/hr IVPB TITR [facility]; 5 MG/ HR PRN Reason: Protocol Last Titration: 07/17/17 03:30 Dose: 10 mg/hr, 10 mls/hr Methimazole (Tapazole -) 10 mg PO DAILY [facility] Metoprolol Tartrate (Lopressor -) 50 mg PO TID [facility] Non-Formulary Medication (Ipratropium/Albuterol Sulfate [Combivent Respimat Inhal [place]]) 4 gm IH TID PRN PRN Reason: SHORT OF BREATH/WHEEZING Tiotropium [place] (Spiriva -) 1 puff IH DAILY [facility] Torsemide (Demadex -) 20 mg PO ONCE ONE Stop: 07/17/17 10:01 Constitutional: Yes: Awake, NAD on NIPPV Cardiovascular: Yes: Tachycardia, Pulse Irregular. No: Bruit, Gallop, Rub Respiratory: Yes: Accessory Muscle Use, On Nasal O2, Rales, SOB, Tachypnea Gastrointestinal: Yes: WNL, Normal Bowel Sounds. No: Distention, Tenderness Renal/: Yes: WNL Labs: Laboratory Results - last 24 hr 07/16/17 07/16/17 07/16/17 10:05 10:05 10:05 WBC 12.6 H RBC 3.91 Hgb 11.6 Hct 34.9 MCV 89.1 MCH 29.7 MCHC 33.4 RDW 14.5 Plt Count 246 MPV 9.2 Neutrophils % 84.8 H D Lymphocytes % 9.5 D Monocytes % 4.5 Eosinophils % 0.3 Basophils % 0.9 D PT with INR 25.50 H INR 2.26 H D PTT (Actin FS) 29.0 Anticoagulation Therapy Puncture Site ABG pH ABG pCO2 at Pt Temp ABG pO2 at Pt Temp ABG HCO3 ABG O2 Sat (Measured) ABG O2 Content ABG Base Excess Edward Test O2 Delivery Device Oxygen Flow Rate Vent Mode Vent Rate Mechanical Rate Pressure Support Vent Sodium 140 Potassium 4.0 Chloride 103 Carbon Dioxide 27 Anion Gap 10 BUN 36 H Creatinine 1.3 H Creat Clearance w eGFR 39.21 Random Glucose 220 H Calcium 8.9 Phosphorus Magnesium Total Bilirubin 0.6 AST 45 H ALT 89 H Alkaline Phosphatase 108 Creatine Kinase Troponin I 0.03 Total Protein 6.9 Albumin 3.5 Total Amylase 42 Lipase 57 L TSH Free T4 Urine Color Urine Appearance Urine pH Ur Specific [place] Urine Protein Urine Glucose (UA) Urine Ketones Urine Blood Urine Nitrite Urine Bilirubin Urine Urobilinogen Ur Leukocyte Esterase Urine WBC (Auto) Urine RBC (Auto) Ur Epithelial Cells Urine Mucus Digoxin 0.1406 L 07/16/17 07/16/17 07/16/17 13:40 14:29 18:00 WBC RBC Hgb Hct MCV MCH MCHC RDW Plt Count MPV Neutrophils % Lymphocytes % Monocytes % Eosinophils % Basophils % PT with INR INR PTT (Actin FS) Anticoagulation Therapy No Result Required. Puncture Site Right brachial ABG pH 7.46 H ABG pCO2 at Pt Temp 40.6 ABG pO2 at Pt Temp 145.0 H ABG HCO3 28.5 H ABG O2 Sat (Measured) 99.1 H ABG O2 Content 15.7 ABG Base Excess 4.7 H Edward Test No Result Required. O2 Delivery Device No Result Required. Oxygen Flow Rate 3l Vent Mode No Result Required. Vent Rate No Result Required. Mechanical Rate No Result Required. Pressure Support Vent No Result Required. Sodium Potassium Chloride Carbon Dioxide Anion Gap BUN Creatinine Creat Clearance w eGFR Random Glucose Calcium Phosphorus Magnesium Total Bilirubin AST ALT Alkaline Phosphatase Creatine Kinase 45 Troponin I 0.05 Total Protein Albumin Total Amylase Cancelled Lipase Cancelled TSH 2.01 Free T4 Urine Color Urine Appearance Urine pH Ur Specific [place] Urine Protein Urine Glucose (UA) Urine Ketones Urine Blood Urine Nitrite Urine Bilirubin Urine Urobilinogen Ur Leukocyte Esterase Urine WBC (Auto) Urine RBC (Auto) Ur Epithelial Cells Urine Mucus Digoxin 07/16/17 07/17/17 07/17/17 22:10 06:25 06:25 WBC 10.3 H RBC 3.71 Hgb 11.3 Hct 32.9 MCV 88.5 MCH 30.4 MCHC 34.4 RDW 14.7 Plt Count 248 MPV 9.3 Neutrophils % Lymphocytes % Monocytes % Eosinophils % Basophils % PT with INR INR PTT (Actin FS) Anticoagulation Therapy Puncture Site ABG pH ABG pCO2 at Pt Temp ABG pO2 at Pt Temp ABG HCO3 ABG O2 Sat (Measured) ABG O2 Content ABG Base Excess Edward Test O2 Delivery Device Oxygen Flow Rate Vent Mode Vent Rate Mechanical Rate Pressure Support Vent Sodium 140 Potassium 3.6 Chloride 103 Carbon Dioxide 30 Anion Gap 7 L BUN 32 H Creatinine 1.1 H Creat Clearance w eGFR 47.55 Random Glucose 145 H Calcium 8.7 Phosphorus 3.6 Magnesium 2.1 Total Bilirubin 1.1 H D AST 21 ALT 67 Alkaline Phosphatase 97 Creatine Kinase Troponin I Total Protein 6.5 Albumin 3.3 L Total Amylase Lipase TSH 1.59 Free T4 Urine Color L[place] Urine Appearance Clear Urine pH 5.0 Ur Specific [place] 1.009 Urine Protein Negative Urine Glucose (UA) Negative Urine Ketones Negative Urine Blood 1+ H Urine Nitrite Negative Urine Bilirubin Negative Urine Urobilinogen Negative Ur Leukocyte Esterase Trace Urine WBC (Auto) 3 Urine RBC (Auto) 1 Ur Epithelial Cells Rare Urine Mucus Rare Digoxin 07/17/17 06:25 WBC RBC Hgb Hct MCV MCH MCHC RDW Plt Count MPV Neutrophils % Lymphocytes % Monocytes % Eosinophils % Basophils % PT with INR INR PTT (Actin FS) Anticoagulation Therapy Puncture Site ABG pH ABG pCO2 at Pt Temp ABG pO2 at Pt Temp ABG HCO3 ABG O2 Sat (Measured) ABG O2 Content ABG Base Excess Edward Test O2 Delivery Device Oxygen Flow Rate Vent Mode Vent Rate Mechanical Rate Pressure Support Vent Sodium Potassium Chloride Carbon Dioxide Anion Gap BUN Creatinine Creat Clearance w eGFR Random Glucose Calcium Phosphorus Magnesium Total Bilirubin AST ALT Alkaline Phosphatase Creatine Kinase Troponin I Total Protein Albumin Total Amylase Lipase TSH Free T4 1.05 Urine Color Urine Appearance Urine pH Ur Specific [place] Urine Protein Urine Glucose (UA) Urine Ketones Urine Blood Urine Nitrite Urine Bilirubin Urine Urobilinogen Ur Leukocyte Esterase Urine WBC (Auto) Urine RBC (Auto) Ur Epithelial Cells Urine Mucus Digoxin Problem List - Problems (1) Atrial fibrillation with rapid ventricular response Assessment/Plan: Code(s): I48.91 - UNSPECIFIED ATRIAL FIBRILLATION (2) Shortness of breath Assessment/Plan: Code(s): R06.02 - SHORTNESS OF BREATH (3) Transaminitis Assessment/Plan: Code(s): R74.0 - NONSPEC ELEV OF LEVELS OF TRANSAMNS & LACTIC ACID DEHYDRGNSE (4) Leukocytosis Assessment/Plan: Code(s): D72.829 - ELEVATED WHITE BLOOD CELL COUNT, UNSPECIFIED (5) CARMEN (acute kidney injury) Assessment/Plan: Code(s): N17.9 - ACUTE KIDNEY FAILURE, UNSPECIFIED (6) ASHD (arteriosclerotic heart disease) Assessment/Plan: Code(s): I25.10 - ATHSCL HEART DISEASE OF [place] CORONARY ARTERY W/O ANG PCTRS (7) COPD (chronic obstructive pulmonary disease) Assessment/Plan: Code(s): J44.9 - CHRONIC OBSTRUCTIVE PULMONARY DISEASE, UNSPECIFIED Qualifiers: (8) HLD (hyperlipidemia) Assessment/Plan: Code(s): E78.5 - HYPERLIPIDEMIA, UNSPECIFIED (9) HTN (hypertension) Assessment/Plan: Code(s): I10 - ESSENTIAL (PRIMARY) HYPERTENSION Qualifiers: Hypertension type: essential hypertension Qualified Code(s): I10 - Essential (primary) hypertension (10) Hyperthyroidism Assessment/Plan: Code(s): E05.90 - THYROTOXICOSIS, UNSP WITHOUT THYROTOXIC CRISIS OR STORM PLAN: Wean Cardizem drip NIPPV support Strict I & O Monitor off systemic steroids BD TX Spiriva OD Follow cardiac enzymes ICU monitoring Dr Tripp Critical care time spent in reviewing chart, evaluating patient and formulating plan - 36 minutes.
--- NOTE | 2017-07-17 09:12 | PN ---
Progress Note, Physician Chief Complaint: Pt lying in bed in no acute distress. Pt reports she is feeling better. Still a little sob. Denies any chest discomfort, n/v/d, fever/chills, or weakness - Current Medication List Current Medications: Active Medications Amiodarone HCl (Cordarone -) 100 mg PO DAILY [facility] Apixaban (Eliquis -) 5 mg PO BID [facility] Last Admin: 07/16/17 23:41 Dose: 5 mg Aspirin (Asa -) 81 mg PO DAILY [facility] Digoxin (Lanoxin -) 0.125 mg PO DAILY [facility] Diltiazem HCl 125 mg/ Sodium (Chloride) 125 mls @ 5 mls/hr IVPB TITR [facility]; 5 MG/ HR PRN Reason: Protocol Last Titration: 07/17/17 03:30 Dose: 10 mg/hr, 10 mls/hr Methimazole (Tapazole -) 10 mg PO DAILY [facility] Metoprolol Tartrate (Lopressor -) 50 mg PO TID [facility] Non-Formulary Medication (Ipratropium/Albuterol Sulfate [Combivent Respimat Inhal [place]]) 4 gm IH TID PRN PRN Reason: SHORT OF BREATH/WHEEZING Tiotropium [place] (Spiriva -) 1 puff IH DAILY [facility] Torsemide (Demadex -) 20 mg PO ONCE ONE Stop: 07/17/17 10:01 - Objective Vital Signs: Vital Signs Temperature 97.8 F 07/17/17 04:00 Pulse Rate 101 H 07/17/17 08:00 Respiratory Rate 20 07/17/17 08:00 Blood Pressure 120/86 07/17/17 08:00 O2 Sat by Pulse Oximetry (%) 100 07/17/17 07:05 Constitutional: Yes: Well Nourished, No Distress, Calm Cardiovascular: Yes: Tachycardia, Pulse Irregular. No: Bruit, Gallop, Rub Respiratory: Yes: Accessory Muscle Use, On Nasal O2, Rales, SOB, SOB on Exertion. No: Wheezes Gastrointestinal: Yes: WNL, Normal Bowel Sounds, Soft. No: Distention, Tenderness Genitourinary: Yes: WNL Edema: No Neurological: Yes: WNL, Alert, Oriented Psychiatric: Yes: WNL, Alert, Oriented Labs: CBC, BMP 07/17/17 06:25 07/17/17 06:25 INR, PTT INR 2.26 (0.82-1.09) H D 07/16/17 10:05 - ....Imaging Chest X-ray: Report Reviewed Problem List - Problems (1) Atrial fibrillation with rapid ventricular response Code(s): I48.91 - UNSPECIFIED ATRIAL FIBRILLATION (2) Shortness of breath Code(s): R06.02 - SHORTNESS OF BREATH (3) Transaminitis Code(s): R74.0 - NONSPEC ELEV OF LEVELS OF TRANSAMNS & LACTIC ACID DEHYDRGNSE (4) Leukocytosis Code(s): D72.829 - ELEVATED WHITE BLOOD CELL COUNT, UNSPECIFIED (5) CARMEN (acute kidney injury) Code(s): N17.9 - ACUTE KIDNEY FAILURE, UNSPECIFIED (6) ASHD (arteriosclerotic heart disease) Code(s): I25.10 - ATHSCL HEART DISEASE OF [place] CORONARY ARTERY W/O ANG PCTRS (7) COPD (chronic obstructive pulmonary disease) Code(s): J44.9 - CHRONIC OBSTRUCTIVE PULMONARY DISEASE, UNSPECIFIED Qualifiers: (8) HLD (hyperlipidemia) Code(s): E78.5 - HYPERLIPIDEMIA, UNSPECIFIED (9) HTN (hypertension) Code(s): I10 - ESSENTIAL (PRIMARY) HYPERTENSION Qualifiers: Hypertension type: essential hypertension Qualified Code(s): I10 - Essential (primary) hypertension (10) Hyperthyroidism Code(s): E05.90 - THYROTOXICOSIS, UNSP WITHOUT THYROTOXIC CRISIS OR STORM (11) Hypokalemia Code(s): E87.6 - HYPOKALEMIA (12) Atelectasis of left lung Code(s): J98.11 - ATELECTASIS Assessment/Plan (1) Atrial fibrillation with rapid ventricular response Assessment/Plan: afib w/ rvr, hr in 110s today, improving, Bp stable pt reports improvement in sob today ekg with no ischemic changes echo reduced lvef cardizem drip wean cardiology following ICU level of care Code(s): I48.91 - UNSPECIFIED ATRIAL FIBRILLATION (2) Shortness of breath Assessment/Plan: improving bipap torsemide Code(s): R06.02 - SHORTNESS OF BREATH (3) Transaminitis Assessment/Plan: resolved i suspect secondary to hepatic congestion Code(s): R74.0 - NONSPEC ELEV OF LEVELS OF TRANSAMNS & LACTIC ACID DEHYDRGNSE (4) Leukocytosis Assessment/Plan: improved infectious etiology unlikely chest xray w/ b/l atelectasis ua/uc pending will monitor for now Code(s): D72.829 - ELEVATED WHITE BLOOD CELL COUNT, UNSPECIFIED (5) CARMEN (acute kidney injury) Assessment/Plan: pre-renal improved Code(s): N17.9 - ACUTE KIDNEY FAILURE, UNSPECIFIED (6) ASHD (arteriosclerotic heart disease) Assessment/Plan: stable s/p danielle x3 continue asa continue statin Code(s): I25.10 - ATHSCL HEART DISEASE OF [place] CORONARY ARTERY W/O ANG PCTRS (7) COPD (chronic obstructive pulmonary disease) Assessment/Plan: Asthma and hx of copd exacerbations in past stable Code(s): J44.9 - CHRONIC OBSTRUCTIVE PULMONARY DISEASE, UNSPECIFIED Qualifiers: (8) HLD (hyperlipidemia) Assessment/Plan: stable statin Code(s): E78.5 - HYPERLIPIDEMIA, UNSPECIFIED (9) HTN (hypertension) Assessment/Plan: controlled continue current regimen Add FLAKITA-I when clinically more stable Code(s): I10 - ESSENTIAL (PRIMARY) HYPERTENSION Qualifiers: Hypertension type: essential hypertension Qualified Code(s): I10 - Essential (primary) hypertension (10) Hyperthyroidism Assessment/Plan: stable tsh wnl continue tapazole Code(s): E05.90 - THYROTOXICOSIS, UNSP WITHOUT THYROTOXIC CRISIS OR STORM I agree with ICU Attending's Plan of care.
[2017-07-17] MEDS ORDERED: TORSEMIDE 20 MG TABLET (FP) PO ONE (10:00)
[2017-07-17] MEDS: AMIODARONE HCL 200 MG TABLET (FP) PO SCH (10:10)
[2017-07-17] MEDS: APIXABAN 5 MG TABLET PO SCH ×2 (10:10→22:00)
[2017-07-17] MEDS: METHIMAZOLE 10 MG TABLET (FP) PO SCH (10:10)
[2017-07-17] MEDS: ASPIRIN 81 MG CHEWABLE TABLETS PO SCH (10:10)
[2017-07-17] MEDS: TIOTROPIUM BROMIDE 18 MCG CAPSULES IH SCH (10:11)
[2017-07-17] MEDS: DIGOXIN 0.125 MG TABLET (FP) PO SCH (10:11)
[2017-07-17] MEDS: METOPROLOL TARTRATE 50 MG TABLET (FP) PO SCH ×2 (10:11→13:19)
--- NOTE | 2017-07-17 11:22 | PN ---
Progress Note, Physician History of Present Illness: No complaints Remains on Dilt gtt Tele: HR 100-110 - Current Medication List Current Medications: Active Medications Amiodarone HCl (Cordarone -) 100 mg PO DAILY [facility] Last Admin: 07/17/17 10:10 Dose: 100 mg Apixaban (Eliquis -) 5 mg PO BID [facility] Last Admin: 07/17/17 10:10 Dose: 5 mg Aspirin (Asa -) 81 mg PO DAILY [facility] Last Admin: 07/17/17 10:10 Dose: 81 mg Digoxin (Lanoxin -) 0.125 mg PO DAILY [facility] Last Admin: 07/17/17 10:11 Dose: 0.125 mg Diltiazem HCl 125 mg/ Sodium (Chloride) 125 mls @ 5 mls/hr IVPB TITR [facility]; 5 MG/ HR PRN Reason: Protocol Last Titration: 07/17/17 03:30 Dose: 10 mg/hr, 10 mls/hr Methimazole (Tapazole -) 10 mg PO DAILY [facility] Last Admin: 07/17/17 10:10 Dose: 10 mg Metoprolol Tartrate (Lopressor -) 50 mg PO TID [facility] Last Admin: 07/17/17 10:11 Dose: 50 mg Rosuvastatin Calcium (Crestor -) 5 mg PO HS [facility] Tiotropium [place] (Spiriva -) 1 puff IH DAILY [facility] Last Admin: 07/17/17 10:11 Dose: 1 puff - Objective Vital Signs: Vital Signs Temperature 97.6 F 07/17/17 10:00 Pulse Rate 110 H 07/17/17 10:11 Respiratory Rate 20 07/17/17 10:00 Blood Pressure 115/61 07/17/17 10:00 O2 Sat by Pulse Oximetry (%) 97 07/17/17 09:38 Constitutional: Yes: No Distress, Calm Eyes: Yes: Conjunctiva Clear HENT: Yes: WNL Neck: Yes: WNL Cardiovascular: Yes: Tachycardia, Pulse Irregular Respiratory: Yes: CTA Bilaterally Gastrointestinal: Yes: Normal Bowel Sounds Extremities: Yes: WNL Edema: No Labs: CBC, BMP 07/17/17 06:25 07/17/17 06:25 INR, PTT INR 2.26 (0.82-1.09) H D 07/16/17 10:05 Assessment/Plan 82 yo f with h/o CAD s/p pRCA BETHANIE 09/2011 for unstable angina (CP/[facility]DS) and later BETHANIE to pLAD and mLAD 10/2011, paroxysmal atrial fibrillation, HTN, HL, diastolic dysfunction, 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 Has tolerated toprol 100 mg qam and 50 mg qpm as outpatient (in combo with digoxin). Some question of whether she may have had bronchospasm at higher doses on prior admission. However, was paraflu + at that time. - currently placed on diltiazem by ER, with questionable report of worsened sob after iv lopressor. Patient with newly decreased systolic function, ccb contraindicated. Will plan on continuing dilt drip overnight and weaning drip tomorrow am by starting lopressor tid in the am (monitor for bronchospasm), in combination with low dose amiodarone. Con't dig. monitor level with the addition of amio. Recommend checking again for respiratory viruses in case infection is contributing to bronchospasm like in the past. - 07/17: Remains in Afib 100-110. TSH normal. Dig low at 0.140 (but now on Amio) . Still on Dilt gtt. Will given Dig 0.25mg today. new systolic dysfunction - likely tachymyopathy, but patient with underlying cad. con't mell. Patient/ family wish to avoid invasive procedures. Will plan on repeating echo once heart rate controlled. If still depressed, then can discuss with patient/ family whether they want to pursue ischemic evaluation. - switch from ccb to bb as mentioned above. - will reassess need for diuretics once better rate controlled. In the meanwhile, con't current po dose of torsemide 20 mg QOD. - daily weights, i/o's. cad - ischemic evaluation as mentioned above. - resume statin, con't asa htn/hl - meds as above.
[2017-07-17] MEDS: DILTIAZEM INJECTION 125 MG in SODIUM CHLORIDE 100 ML IVPB SCH (13:19)
[2017-07-17] MEDS ORDERED: DIGOXIN 0.25 MG TABLET (FP) PO ONE (15:53)
[2017-07-17] MEDS ORDERED: QUEtiapine FUMARATE 25 MG TABLET (FP) PO ONE (20:28)
[2017-07-17] MEDS ORDERED: HALOPERIDOL LACTATE 5 MG/ML IM ONE ×2 (20:33→21:15)
[2017-07-18] MEDS: METOPROLOL TARTRATE 50 MG TABLET (FP) PO SCH ×4 (01:35→21:28)
[2017-07-18] MEDS: ROSUVASTATIN CA 5 MG TABLET (FP) PO SCH ×2 (01:35→21:28)
[2017-07-18 06:48] LABS: BASO % 0.4 % (0-2.0); EOS % 1.5 % (0-4.5); HEMATOCRIT 33.3 % (32.4-45.2); HEMOGLOBIN 11.2 GM/dL (10.7-15.3); LYMPH % 14.9 % (8-40); MCHC 33.7 g/dl (32.0-36.0); MONO % 8.8 % (3.8-10.2); NEUT % 74.4 % (42.8-82.8); PLATELET COUNT 208 K/MM3 (134-434); RBC 3.74 M/mm3 (3.60-5.2); RDW 14.6 % (11.6-15.6); WHITE BLOOD COUNT 11.9 K/mm3 (4.0-10.0)
[2017-07-18 07:34] LABS: ANION GAP 7 (8-16); BLOOD UREA NITROGEN 33 mg/dL (7-18); CALCIUM 8.9 mg/dL (8.5-10.1); CHLORIDE 101 mmol/L (98-107); CO2 33 mmol/L (21-32); GLUCOSE,RANDOM 123 mg/dL (74-106); POTASSIUM 3.8 mmol/L (3.5-5.1); SODIUM 141 mmol/L (136-145)
[2017-07-18 07:49] LABS: CREATININE 1.2 mg/dL (0.55-1.02)
[2017-07-18] MEDS ORDERED: POTASSIUM CHLORIDE TABS 20 MEQ TABLET.ER (FP) PO ONE (09:30)
[2017-07-18] MEDS ORDERED: PT OWN MED DRAWER 7, Y5N ONE ×3 (09:52→21:03)
[2017-07-18] MEDS: APIXABAN 5 MG TABLET PO SCH ×2 (10:10→21:28)
[2017-07-18] MEDS: ASPIRIN 81 MG CHEWABLE TABLETS PO SCH (10:11)
[2017-07-18] MEDS: AMIODARONE HCL 200 MG TABLET (FP) PO SCH (10:11)
[2017-07-18] MEDS: DIGOXIN 0.125 MG TABLET (FP) PO SCH (10:11)
[2017-07-18] MEDS: METHIMAZOLE 10 MG TABLET (FP) PO SCH (10:13)
[2017-07-18] MEDS: TIOTROPIUM BROMIDE 18 MCG CAPSULES IH SCH (10:13)
--- NOTE | 2017-07-18 10:14 | PN ---
Progress Note (short form) - Note Progress Note: Patient seen and examined in the ICU. Lethargic. Received Ativan, Seroquel, and Haldol overnight for agitation. Rate controlled AFib. Intake & Output 07/15/17 07/16/17 07/17/17 07/18/17 23:59 23:59 23:59 23:59 Intake Total 462 Balance 462 Weight 155 lb 162 lb Last Vital Signs Temp Pulse Resp BP Pulse Ox 97.8 F 66 22 140/79 97 07/18/17 06:00 07/18/17 06:00 07/18/17 06:00 07/18/17 06:00 07/17/17 20:09 Active Medications Amiodarone HCl (Cordarone -) 100 mg PO DAILY [facility] Last Admin: 07/17/17 10:10 Dose: 100 mg Apixaban (Eliquis -) 5 mg PO BID [facility] Last Admin: 07/17/17 22:00 Dose: Not Given Aspirin (Asa -) 81 mg PO DAILY [facility] Last Admin: 07/17/17 10:10 Dose: 81 mg Digoxin (Lanoxin -) 0.125 mg PO DAILY [facility] Last Admin: 07/17/17 10:11 Dose: 0.125 mg Diltiazem HCl 125 mg/ Sodium (Chloride) 125 mls @ 5 mls/hr IVPB TITR [facility]; 5 MG/ HR PRN Reason: Protocol Last Titration: 07/17/17 22:33 Dose: 0 mg/hr, 0 mls/hr Methimazole (Tapazole -) 10 mg PO DAILY [facility] Last Admin: 07/17/17 10:10 Dose: 10 mg Metoprolol Tartrate (Lopressor -) 50 mg PO TID [facility] Last Admin: 07/18/17 06:33 Dose: Not Given Rosuvastatin Calcium (Crestor -) 5 mg PO HS [facility] Last Admin: 07/18/17 01:35 Dose: Not Given Tiotropium [place] (Spiriva -) 1 puff IH DAILY [facility] Last Admin: 07/17/17 10:11 Dose: 1 puff Constitutional: Yes: Lethargic, not following commands Cardiovascular: Yes: Pulse Irregular. No: Bruit, Gallop, Rub Respiratory: Yes: Accessory Muscle Use, On Nasal O2, Rales, SOB, Tachypnea Gastrointestinal: Yes: WNL, Normal Bowel Sounds. No: Distention, Tenderness Renal/: Yes: WNL Labs: Laboratory Results - last 24 hr 07/17/17 07/17/17 07/17/17 06:25 06:25 06:25 WBC RBC Hgb Hct MCV MCH MCHC RDW Plt Count MPV Neutrophils % Lymphocytes % Monocytes % Eosinophils % Basophils % Sodium 140 Potassium 3.6 Chloride 103 Carbon Dioxide 30 Anion Gap 7 L BUN 32 H Creatinine 1.1 H Creat Clearance w eGFR 47.55 Random Glucose 145 H Calcium 8.7 Phosphorus 3.6 Magnesium 2.1 Total Bilirubin 1.1 H D AST 21 ALT 67 Alkaline Phosphatase 97 Creatine Kinase 37 Cancelled Troponin I 0.04 Cancelled Total Protein 6.5 Albumin 3.3 L TSH 1.59 Free T3 2.1 Digoxin 07/17/17 07/18/17 07/18/17 12:25 06:15 06:15 WBC 11.9 H RBC 3.74 Hgb 11.2 Hct 33.3 MCV 89.0 MCH 30.0 MCHC 33.7 RDW 14.6 Plt Count 208 MPV 9.0 Neutrophils % 74.4 Lymphocytes % 14.9 D Monocytes % 8.8 D Eosinophils % 1.5 D Basophils % 0.4 Sodium 141 Potassium 3.8 Chloride 101 Carbon Dioxide 33 H Anion Gap 7 L BUN 33 H Creatinine 1.2 H Creat Clearance w eGFR Random Glucose 123 H Calcium 8.9 Phosphorus Magnesium Total Bilirubin AST ALT Alkaline Phosphatase Creatine Kinase Troponin I 0.04 Total Protein Albumin TSH Free T3 Digoxin 0.6169 L Problem List - Problems (1) Atrial fibrillation with rapid ventricular response Assessment/Plan: Code(s): I48.91 - UNSPECIFIED ATRIAL FIBRILLATION (2) Shortness of breath Assessment/Plan: Code(s): R06.02 - SHORTNESS OF BREATH (3) Transaminitis Assessment/Plan: Code(s): R74.0 - NONSPEC ELEV OF LEVELS OF TRANSAMNS & LACTIC ACID DEHYDRGNSE (4) Leukocytosis Assessment/Plan: Code(s): D72.829 - ELEVATED WHITE BLOOD CELL COUNT, UNSPECIFIED (5) CARMEN (acute kidney injury) Assessment/Plan: Code(s): N17.9 - ACUTE KIDNEY FAILURE, UNSPECIFIED (6) ASHD (arteriosclerotic heart disease) Assessment/Plan: Code(s): I25.10 - ATHSCL HEART DISEASE OF [place] CORONARY ARTERY W/O ANG PCTRS (7) COPD (chronic obstructive pulmonary disease) Assessment/Plan: Code(s): J44.9 - CHRONIC OBSTRUCTIVE PULMONARY DISEASE, UNSPECIFIED Qualifiers: (8) HLD (hyperlipidemia) Assessment/Plan: Code(s): E78.5 - HYPERLIPIDEMIA, UNSPECIFIED (9) HTN (hypertension) Assessment/Plan: Code(s): I10 - ESSENTIAL (PRIMARY) HYPERTENSION Qualifiers: Hypertension type: essential hypertension Qualified Code(s): I10 - Essential (primary) hypertension (10) Hyperthyroidism Assessment/Plan: Code(s): E05.90 - THYROTOXICOSIS, UNSP WITHOUT THYROTOXIC CRISIS OR STORM PLAN: Monitor off Cardizem drip O2 to maintain saturation Strict I & O Monitor off systemic steroids BD TX Spiriva OD Cardiac Telemetry monitoring No further sedatives Dr Tripp Critical care time spent in reviewing chart, evaluating patient and formulating plan - 36 minutes.
--- NOTE | 2017-07-18 11:09 | PN ---
Progress Note, Physician History of Present Illness: Episode of delerium overnight with melvin to 30s then converted to NSR No chest pain or dyspnea - Current Medication List Current Medications: Active Medications Amiodarone HCl (Cordarone -) 100 mg PO DAILY [facility] Last Admin: 07/18/17 10:11 Dose: 100 mg Apixaban (Eliquis -) 5 mg PO BID [facility] Last Admin: 07/18/17 10:10 Dose: 5 mg Aspirin (Asa -) 81 mg PO DAILY [facility] Last Admin: 07/18/17 10:11 Dose: 81 mg Digoxin (Lanoxin -) 0.125 mg PO DAILY [facility] Last Admin: 07/18/17 10:11 Dose: 0.125 mg Diltiazem HCl 125 mg/ Sodium (Chloride) 125 mls @ 5 mls/hr IVPB TITR [facility]; 5 MG/ HR PRN Reason: Protocol Last Titration: 07/17/17 22:33 Dose: 0 mg/hr, 0 mls/hr Methimazole (Tapazole -) 10 mg PO DAILY [facility] Last Admin: 07/18/17 10:13 Dose: 10 mg Metoprolol Tartrate (Lopressor -) 50 mg PO TID [facility] Last Admin: 07/18/17 06:33 Dose: Not Given Rosuvastatin Calcium (Crestor -) 5 mg PO HS [facility] Last Admin: 07/18/17 01:35 Dose: Not Given Tiotropium [place] (Spiriva -) 1 puff IH DAILY [facility] Last Admin: 07/18/17 10:13 Dose: 1 puff - Objective Vital Signs: Vital Signs Temperature 97.8 F 07/18/17 06:00 Pulse Rate 78 07/18/17 10:11 Respiratory Rate 22 07/18/17 06:00 Blood Pressure 140/79 07/18/17 06:00 O2 Sat by Pulse Oximetry (%) 97 07/17/17 20:09 Constitutional: Yes: No Distress Eyes: Yes: WNL HENT: Yes: WNL Neck: Yes: WNL Cardiovascular: Yes: Regular Rate and Rhythm Respiratory: Yes: CTA Bilaterally Gastrointestinal: Yes: Normal Bowel Sounds Extremities: Yes: WNL Edema: No Labs: CBC, BMP 07/18/17 06:15 07/18/17 06:15 INR, PTT INR 2.26 (0.82-1.09) H D 07/16/17 10:05 Assessment/Plan 82 yo f with h/o CAD s/p pRCA BETHANIE 09/2011 for unstable angina (CP/EDWARDS) and later BETHANIE to pLAD and mLAD 10/2011, paroxysmal atrial fibrillation, HTN, HL, diastolic dysfunction, 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 Has tolerated toprol 100 mg qam and 50 mg qpm as outpatient (in combo with digoxin). Some question of whether she may have had bronchospasm at higher doses on prior admission. However, was paraflu + at that time. - currently placed on diltiazem by ER, with questionable report of worsened sob after iv lopressor. Patient with newly decreased systolic function, ccb contraindicated. Will plan on continuing dilt drip overnight and weaning drip tomorrow am by starting lopressor tid in the am (monitor for bronchospasm), in combination with low dose amiodarone. Con't dig. monitor level with the addition of amio. Recommend checking again for respiratory viruses in case infection is contributing to bronchospasm like in the past. - 07/17: Remains in Afib 100-110. TSH normal. Dig low at 0.140 (but now on Amio) . Still on Dilt gtt. Will given Dig 0.25mg today. -07/18: Converted to NSR 60s. Continue Dig 0.125mg and Amio. Off Dilt Drip. 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 con't mell. Patient/ family wish to avoid invasive procedures. Will plan on repeating echo once heart rate controlled. If still depressed, then can discuss with patient/ family whether they want to pursue ischemic evaluation. - switch from ccb to bb as mentioned above. - will reassess need for diuretics once better rate controlled. In the meanwhile, con't current po dose of torsemide 20 mg QOD. - daily weights, i/o's. cad - ischemic evaluation as mentioned above. - resume statin, con't asa htn/hl - meds as above.
--- NOTE | 2017-07-18 12:16 | PN ---
Progress Note, Physician Chief Complaint: Pt lying in bed, lethargic, confusion over night. had bradycardia overnight, dilt drip stopped. HR controlled now. Denies any chest discomfort, n/v/d, fever /chills, or weakness - Current Medication List Current Medications: Active Medications Amiodarone HCl (Cordarone -) 100 mg PO DAILY [facility] Last Admin: 07/18/17 10:11 Dose: 100 mg Apixaban (Eliquis -) 5 mg PO BID [facility] Last Admin: 07/18/17 10:10 Dose: 5 mg Aspirin (Asa -) 81 mg PO DAILY [facility] Last Admin: 07/18/17 10:11 Dose: 81 mg Digoxin (Lanoxin -) 0.125 mg PO DAILY [facility] Last Admin: 07/18/17 10:11 Dose: 0.125 mg Diltiazem HCl 125 mg/ Sodium (Chloride) 125 mls @ 5 mls/hr IVPB TITR [facility]; 5 MG/ HR PRN Reason: Protocol Last Titration: 07/17/17 22:33 Dose: 0 mg/hr, 0 mls/hr Methimazole (Tapazole -) 10 mg PO DAILY [facility] Last Admin: 07/18/17 10:13 Dose: 10 mg Metoprolol Tartrate (Lopressor -) 50 mg PO TID [facility] Last Admin: 07/18/17 06:33 Dose: Not Given Rosuvastatin Calcium (Crestor -) 5 mg PO HS [facility] Last Admin: 07/18/17 01:35 Dose: Not Given Tiotropium [place] (Spiriva -) 1 puff IH DAILY [facility] Last Admin: 07/18/17 10:13 Dose: 1 puff - Objective Vital Signs: Vital Signs Temperature 97.8 F 07/18/17 06:00 Pulse Rate 78 07/18/17 10:11 Respiratory Rate 22 07/18/17 06:00 Blood Pressure 140/79 07/18/17 06:00 O2 Sat by Pulse Oximetry (%) 97 07/17/17 20:09 Constitutional: Yes: Well Nourished, Calm Cardiovascular: Yes: Regular Rate and Rhythm. No: Tachycardia, Gallop, Murmur Respiratory: Yes: Accessory Muscle Use, Diminished, On Nasal O2, Rales ( bibasilar), SOB, Tachypnea. No: Wheezes Gastrointestinal: Yes: WNL, Normal Bowel Sounds, Soft, Abdomen, Obese. No: Distention, Tenderness Genitourinary: Yes: WNL Edema: No Neurological: Yes: Confusion, Lethargy Labs: CBC, BMP 07/18/17 06:15 07/18/17 06:15 INR, PTT INR 2.26 (0.82-1.09) H D 07/16/17 10:05 Problem List - Problems (1) Atrial fibrillation with rapid ventricular response Code(s): I48.91 - UNSPECIFIED ATRIAL FIBRILLATION (2) Shortness of breath Code(s): R06.02 - SHORTNESS OF BREATH (3) Transaminitis Code(s): R74.0 - NONSPEC ELEV OF LEVELS OF TRANSAMNS & LACTIC ACID DEHYDRGNSE (4) Leukocytosis Code(s): D72.829 - ELEVATED WHITE BLOOD CELL COUNT, UNSPECIFIED (5) CARMEN (acute kidney injury) Code(s): N17.9 - ACUTE KIDNEY FAILURE, UNSPECIFIED (6) ASHD (arteriosclerotic heart disease) Code(s): I25.10 - ATHSCL HEART DISEASE OF [place] CORONARY ARTERY W/O ANG PCTRS (7) COPD (chronic obstructive pulmonary disease) Code(s): J44.9 - CHRONIC OBSTRUCTIVE PULMONARY DISEASE, UNSPECIFIED Qualifiers: (8) HLD (hyperlipidemia) Code(s): E78.5 - HYPERLIPIDEMIA, UNSPECIFIED (9) HTN (hypertension) Code(s): I10 - ESSENTIAL (PRIMARY) HYPERTENSION Qualifiers: Hypertension type: essential hypertension Qualified Code(s): I10 - Essential (primary) hypertension (10) Hyperthyroidism Code(s): E05.90 - THYROTOXICOSIS, UNSP WITHOUT THYROTOXIC CRISIS OR STORM (11) Hypokalemia Code(s): E87.6 - HYPOKALEMIA (12) Atelectasis of left lung Code(s): J98.11 - ATELECTASIS Assessment/Plan (1) Atrial fibrillation with rapid ventricular response Assessment/Plan: afib w/ rvr, bradycardia overnight, now in SR pt still appears slightly sob, improving ekg with no ischemic changes echo reduced lvef po amio/dig cardiology following ICU level of care Code(s): I48.91 - UNSPECIFIED ATRIAL FIBRILLATION (2) Shortness of breath Assessment/Plan: improving O2 NC nebs will monitor Code(s): R06.02 - SHORTNESS OF BREATH (3) Transaminitis Assessment/Plan: resolved i suspect secondary to hepatic congestion Code(s): R74.0 - NONSPEC ELEV OF LEVELS OF TRANSAMNS & LACTIC ACID DEHYDRGNSE (4) Leukocytosis Assessment/Plan: borderline chest xray w/ b/l atelectasis ua neg/uc pending blood cultures ordered IS will monitor for now Code(s): D72.829 - ELEVATED WHITE BLOOD CELL COUNT, UNSPECIFIED (5) CARMEN (acute kidney injury) Assessment/Plan: pre-renal will monitor Code(s): N17.9 - ACUTE KIDNEY FAILURE, UNSPECIFIED (6) ASHD (arteriosclerotic heart disease) Assessment/Plan: stable s/p danielle x3 continue asa continue statin Code(s): I25.10 - ATHSCL HEART DISEASE OF [place] CORONARY ARTERY W/O ANG PCTRS (7) COPD (chronic obstructive pulmonary disease) Assessment/Plan: Asthma and hx of copd exacerbations in past stable Code(s): J44.9 - CHRONIC OBSTRUCTIVE PULMONARY DISEASE, UNSPECIFIED Qualifiers: (8) HLD (hyperlipidemia) Assessment/Plan: stable statin Code(s): E78.5 - HYPERLIPIDEMIA, UNSPECIFIED (9) HTN (hypertension) Assessment/Plan: controlled continue current regimen Add FLAKITA-I when clinically more stable Code(s): I10 - ESSENTIAL (PRIMARY) HYPERTENSION Qualifiers: Hypertension type: essential hypertension Qualified Code(s): I10 - Essential (primary) hypertension (10) Hyperthyroidism Assessment/Plan: stable tsh wnl continue tapazole Code(s): E05.90 - THYROTOXICOSIS, UNSP WITHOUT THYROTOXIC CRISIS OR STORM I agree with ICU Attending's Plan of care.
[2017-07-18] MEDS ORDERED: ALBUTEROL SO4 0.083% IH SOL 2.5 MG/3 ML VIAL.NEB. NEB PRN (12:44)
[2017-07-19] MEDS: METOPROLOL TARTRATE 50 MG TABLET (FP) PO SCH ×3 (05:45→21:14)
[2017-07-19 06:25] LABS: BASO % 0.5 % (0-2.0); HEMATOCRIT 30.9 % (32.4-45.2); HEMOGLOBIN 10.7 GM/dL (10.7-15.3); LYMPH % 12.6 % (8-40); MCH 30.7 pg (25.7-33.7); MCHC 34.6 g/dl (32.0-36.0); MEAN CELL VOLUME 88.8 fl (80-96); MEAN PLT VOLUME 8.9 fl (7.5-11.1); MONO % 7.5 % (3.8-10.2); NEUT % 77.4 % (42.8-82.8); PLATELET COUNT 223 K/MM3 (134-434); RBC 3.48 M/mm3 (3.60-5.2); RDW 14.5 % (11.6-15.6); WHITE BLOOD COUNT 9.1 K/mm3 (4.0-10.0)
[2017-07-19 06:52] LABS: ANION GAP 8 (8-16); BLOOD UREA NITROGEN 26 mg/dL (7-18); CALCIUM 8.6 mg/dL (8.5-10.1); CHLORIDE 103 mmol/L (98-107); CO2 31 mmol/L (21-32); CREATININE 0.9 mg/dL (0.55-1.02); GLUCOSE,RANDOM 128 mg/dL (74-106); MAGNESIUM 2.2 mg/dL (1.8-2.4); PHOSPHOROUS 2.8 mg/dL (2.5-4.9); SODIUM 142 mmol/L (136-145)
[2017-07-19] MEDS: ASPIRIN 81 MG CHEWABLE TABLETS PO SCH (09:01)
[2017-07-19] MEDS: AMIODARONE HCL 200 MG TABLET (FP) PO SCH (09:02)
[2017-07-19] MEDS: APIXABAN 5 MG TABLET PO SCH ×2 (09:02→21:14)
[2017-07-19] MEDS: DIGOXIN 0.125 MG TABLET (FP) PO SCH (09:02)
[2017-07-19] MEDS: TIOTROPIUM BROMIDE 18 MCG CAPSULES IH SCH (09:03)
[2017-07-19] MEDS ORDERED: PT OWN MED DRAWER 7, Y5N ONE (09:09)
[2017-07-19] MEDS: METHIMAZOLE 10 MG TABLET (FP) PO SCH (09:12)
--- NOTE | 2017-07-19 10:35 | PN ---
Progress Note, Physician Chief Complaint: sob History of Present Illness: no sob--had it when came in but resolved denies cp, palpitations, syncope no cigs - Current Medication List Current Medications: Active Medications Albuterol Sulfate (Ventolin 0.083% Nebulizer Soln -) 1 amp NEB Q4H PRN PRN Reason: SHORT OF BREATH/WHEEZING Amiodarone HCl (Cordarone -) 100 mg PO DAILY [facility] Last Admin: 07/19/17 09:02 Dose: 100 mg Apixaban (Eliquis -) 5 mg PO BID [facility] Last Admin: 07/19/17 09:02 Dose: 5 mg Aspirin (Asa -) 81 mg PO DAILY [facility] Last Admin: 07/19/17 09:01 Dose: 81 mg Digoxin (Lanoxin -) 0.125 mg PO DAILY [facility] Last Admin: 07/19/17 09:02 Dose: 0.125 mg Methimazole (Tapazole -) 10 mg PO DAILY [facility] Last Admin: 07/19/17 09:12 Dose: 10 mg Metoprolol Tartrate (Lopressor -) 50 mg PO TID [facility] Last Admin: 07/19/17 05:45 Dose: Not Given Rosuvastatin Calcium (Crestor -) 5 mg PO HS [facility] Last Admin: 07/18/17 21:28 Dose: 5 mg Tiotropium [place] (Spiriva -) 1 puff IH DAILY [facility] Last Admin: 07/19/17 09:03 Dose: 1 puff - Objective Vital Signs: Vital Signs Temperature 97.2 F L 07/19/17 06:00 Pulse Rate 79 07/19/17 09:02 Respiratory Rate 21 07/19/17 06:00 Blood Pressure 119/53 07/19/17 06:00 O2 Sat by Pulse Oximetry (%) 97 07/19/17 08:16 Constitutional: Yes: No Distress, Calm, Obese Eyes: No: Sclera Icterus HENT: No: Nasal Congestion Cardiovascular: Yes: Regular Rate and Rhythm, S1, S2, Other (PMI non diplaced). No: Gallop, Murmur Respiratory: Yes: CTA Bilaterally, Rales (bases). No: Accessory Muscle Use, Wheezes Gastrointestinal: Yes: Normal Bowel Sounds, Soft. No: Tenderness Musculoskeletal: Yes: Other (No kyphosis) Extremities: No: Cold Edema: No Integumentary: No: Jaundice Neurological: Yes: Alert, Oriented (x3) Psychiatric: No: Agitated Labs: CBC, BMP 07/19/17 05:57 07/19/17 05:57 INR, PTT INR 2.26 (0.82-1.09) H D 07/16/17 10:05 Assessment/Plan cxr: increased retrocardiac density, atelectasis vs. infiltrate. echo 07/2017: mild-mod decreased sys fn. EF may be underestimated due to afib rhythm. Nl rv size/fn. 1+ lae. mild-mod mr/tr. Echo 08/2015: Nl lv/rv. EF 65-70%. E to A reversal. Mild Lae. 1+ AR/MR. No RVSP PFTs 2014: FEV1/FVC normal, mildly decreased FEV1, decreased FVC, normal TLC, mildly decreased DLCO consistent with obstructive process, possible emphysema Cath/PCI 09/2011: pRCA 80-90% -->BETHANIE, mLAD 60-70%, dLAD 60-70% + FFR, D1 mild diffuse disease Cath/PCI 10/2011: pLAD rota BETHANIE and mLAD rota BETHANIE. tele: NSR ASSESSMENT/PLAN 82 yo f with h/o CAD s/p pRCA BETHANIE 09/2011 for unstable angina (CP/[facility]AR[facility]) and later BETHANIE to pLAD and mLAD 10/2011, paroxysmal atrial fibrillation, HTN, HL, diastolic dysfunction, 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 Has tolerated toprol 100 mg qam and 50 mg qpm as outpatient (in combo with digoxin). Some question of whether she may have had bronchospasm at higher doses on prior admission, however was paraflu + at that time. - placed on amio and diltiazem for HR control here. HRs were reasonable (100-110 ) on diltiazem gtt, amio PO, digoxin, lopressor 50 TID. converted to sinus, diltiazem stopped due to new LV systolic dysfunction. - no wheezing--continue metopr tartrate 50 TID. - TSH, LFTs normal--continue low dose amio (100 qd) - digoxin levels good--continue 0.125 qd - should f/u with cardio 2 wks to assess AF/CHF status - if recurrent rapid AF depite amio in future, can consider diltiazem if EF remains >40% and no signs CHF, though with some risk of precipitating CHF. o/w can consider AVN ablation/PM - cont Eliquis. also on ASA for CAD hx--consider d/c to avoid excess bleeding risk, per dr dutta new systolic dysfunction - likely tachymyopathy, but patient with underlying cad. trops negative. Patient/family wish to avoid invasive procedures. - - will plan on repeating echo once heart rate controlled. If still depressed, then can discuss with patient/family whether they want to reconsider ischemic evaluation. - holding diltiazem, as above - has had no signs of acute chf here--not diuresed - 07/19: rales at bases today, ? atx (suspected on cxr 2 d ago)--rpt CXR. cad - ischemic evaluation as mentioned above. - resume statin, con't asa htn/hl - meds as above. IF CXR WITHOUT SIGNS OF CHF AND PT REMAINS WITHOUT SOB, NO NEED FOR INCR DIURESIS (CAN RESUME PRIOR HOME REGIMEN) AND OK FOR D/C FROM CV P.O.V.
--- NOTE | 2017-07-19 10:42 | PN ---
Progress Note, Physician Chief Complaint: Pt sitting in chair in no acute distress. reports sob improved. Denies any chest discomfort, n/v/d, fever/chills, or weakness - Current Medication List Current Medications: Active Medications Albuterol Sulfate (Ventolin 0.083% Nebulizer Soln -) 1 amp NEB Q4H PRN PRN Reason: SHORT OF BREATH/WHEEZING Amiodarone HCl (Cordarone -) 100 mg PO DAILY [facility] Last Admin: 07/19/17 09:02 Dose: 100 mg Apixaban (Eliquis -) 5 mg PO BID [facility] Last Admin: 07/19/17 09:02 Dose: 5 mg Aspirin (Asa -) 81 mg PO DAILY [facility] Last Admin: 07/19/17 09:01 Dose: 81 mg Digoxin (Lanoxin -) 0.125 mg PO DAILY [facility] Last Admin: 07/19/17 09:02 Dose: 0.125 mg Methimazole (Tapazole -) 10 mg PO DAILY [facility] Last Admin: 07/19/17 09:12 Dose: 10 mg Metoprolol Tartrate (Lopressor -) 50 mg PO TID [facility] Last Admin: 07/19/17 05:45 Dose: Not Given Rosuvastatin Calcium (Crestor -) 5 mg PO HS [facility] Last Admin: 07/18/17 21:28 Dose: 5 mg Tiotropium [place] (Spiriva -) 1 puff IH DAILY [facility] Last Admin: 07/19/17 09:03 Dose: 1 puff - Objective Vital Signs: Vital Signs Temperature 97.2 F L 07/19/17 06:00 Pulse Rate 79 07/19/17 09:02 Respiratory Rate 21 07/19/17 06:00 Blood Pressure 119/53 07/19/17 06:00 O2 Sat by Pulse Oximetry (%) 97 07/19/17 08:16 Constitutional: Yes: Well Nourished, No Distress Cardiovascular: Yes: Regular Rate and Rhythm. No: Pulse Irregular, Bruit, Gallop Respiratory: Yes: Regular, CTA Bilaterally, On Nasal O2, Rales (bibasilar). No : Accessory Muscle Use, Tachypnea, Wheezes Gastrointestinal: Yes: WNL, Normal Bowel Sounds. No: Distention, Tenderness Genitourinary: Yes: WNL Edema: No Neurological: Yes: WNL, Alert, Oriented Psychiatric: Yes: WNL, Alert, Oriented Labs: CBC, BMP 07/19/17 05:57 07/19/17 05:57 INR, PTT INR 2.26 (0.82-1.09) H D 07/16/17 10:05 - ....Imaging Chest X-ray: Pending Problem List - Problems (1) Atrial fibrillation with rapid ventricular response Code(s): I48.91 - UNSPECIFIED ATRIAL FIBRILLATION (2) Shortness of breath Code(s): R06.02 - SHORTNESS OF BREATH (3) Transaminitis Code(s): R74.0 - NONSPEC ELEV OF LEVELS OF TRANSAMNS & LACTIC ACID DEHYDRGNSE (4) Leukocytosis Code(s): D72.829 - ELEVATED WHITE BLOOD CELL COUNT, UNSPECIFIED (5) CARMEN (acute kidney injury) Code(s): N17.9 - ACUTE KIDNEY FAILURE, UNSPECIFIED (6) ASHD (arteriosclerotic heart disease) Code(s): I25.10 - ATHSCL HEART DISEASE OF [place] CORONARY ARTERY W/O ANG PCTRS (7) COPD (chronic obstructive pulmonary disease) Code(s): J44.9 - CHRONIC OBSTRUCTIVE PULMONARY DISEASE, UNSPECIFIED Qualifiers: (8) HLD (hyperlipidemia) Code(s): E78.5 - HYPERLIPIDEMIA, UNSPECIFIED (9) HTN (hypertension) Code(s): I10 - ESSENTIAL (PRIMARY) HYPERTENSION Qualifiers: Hypertension type: essential hypertension Qualified Code(s): I10 - Essential (primary) hypertension (10) Hyperthyroidism Code(s): E05.90 - THYROTOXICOSIS, UNSP WITHOUT THYROTOXIC CRISIS OR STORM (11) Hypokalemia Code(s): E87.6 - HYPOKALEMIA (12) Atelectasis of left lung Code(s): J98.11 - ATELECTASIS Assessment/Plan (1) Atrial fibrillation with rapid ventricular response Assessment/Plan: afib w/ rvr, resolved in SR now sob resolved ekg with no ischemic changes echo reduced lvef po amio/dig cardiology following step down to tele today Code(s): I48.91 - UNSPECIFIED ATRIAL FIBRILLATION (2) Shortness of breath Assessment/Plan: improved repeat chest xray pending Code(s): R06.02 - SHORTNESS OF BREATH (3) Transaminitis Assessment/Plan: resolved i suspect secondary to hepatic congestion Code(s): R74.0 - NONSPEC ELEV OF LEVELS OF TRANSAMNS & LACTIC ACID DEHYDRGNSE (4) Leukocytosis Assessment/Plan: borderline chest xray w/ b/l atelectasis chest CT pending - r/o infec etiology ua neg/uc/blood cultures pending IS will monitor for now Code(s): D72.829 - ELEVATED WHITE BLOOD CELL COUNT, UNSPECIFIED (5) CARMEN (acute kidney injury) Assessment/Plan: improved Code(s): N17.9 - ACUTE KIDNEY FAILURE, UNSPECIFIED (6) ASHD (arteriosclerotic heart disease) Assessment/Plan: stable s/p danielle x3 continue asa continue statin Code(s): I25.10 - ATHSCL HEART DISEASE OF [place] CORONARY ARTERY W/O ANG PCTRS (7) COPD (chronic obstructive pulmonary disease) Assessment/Plan: Asthma and hx of copd exacerbations in past stable Code(s): J44.9 - CHRONIC OBSTRUCTIVE PULMONARY DISEASE, UNSPECIFIED Qualifiers: (8) HLD (hyperlipidemia) Assessment/Plan: stable statin Code(s): E78.5 - HYPERLIPIDEMIA, UNSPECIFIED (9) HTN (hypertension) Assessment/Plan: controlled, episodes of hypotension continue current regimen Add FLAKITA-I when clinically more stable , defer to cardiology considering hypotension Code(s): I10 - ESSENTIAL (PRIMARY) HYPERTENSION Qualifiers: Hypertension type: essential hypertension Qualified Code(s): I10 - Essential (primary) hypertension (10) Hyperthyroidism Assessment/Plan: stable tsh wnl continue tapazole Code(s): E05.90 - THYROTOXICOSIS, UNSP WITHOUT THYROTOXIC CRISIS OR STORM
--- NOTE | 2017-07-19 12:40 | PN ---
Physical Exam: SUBJECTIVE: Patient seen and examined in ICU, no acute events overnight. Denies fevers, chills, chest pain, shortness of breath. OBJECTIVE: Vital Signs Period Temp Pulse Resp BP Sys/[place] Pulse Ox Last 24 Hr 97.2 F-98.9 F 61-83 18-59 90-134/48-79 97-100 GENERAL: The patient is awake, alert, and fully oriented, in no acute distress. HEAD: Normal with no signs of trauma. EYES: PERRL, extraocular movements intact, sclera anicteric, conjunctiva clear. NECK: Trachea midline, full range of motion, supple. LUNGS: Breath sounds equal, clear to auscultation bilaterally, no wheezes, no crackles, no accessory muscle use. HEART: Regular rate and rhythm, S1, S2 without murmur, rub or gallop. EXTREMITIES: 2+ pulses, warm, well-perfused, no edema. NEUROLOGICAL: Cranial nerves II through XII grossly intact. Normal speech, gait not observed. SKIN: Warm, dry, normal turgor, no rashes or lesions noted Laboratory Results - last 24 hr 07/19/17 07/19/17 05:57 05:57 WBC 9.1 RBC 3.48 L Hgb 10.7 Hct 30.9 L MCV 88.8 MCH 30.7 MCHC 34.6 RDW 14.5 Plt Count 223 MPV 8.9 Neutrophils % 77.4 Lymphocytes % 12.6 Monocytes % 7.5 Eosinophils % 2.0 Basophils % 0.5 Sodium 142 Potassium 4.0 Chloride 103 Carbon Dioxide 31 Anion Gap 8 BUN 26 H Creatinine 0.9 Random Glucose 128 H Calcium 8.6 Phosphorus 2.8 Magnesium 2.2 Active Medications Generic Name Dose Route Start Last Admin Trade Name Freq PRN Reason Stop Dose Admin Albuterol Sulfate 1 amp 07/18/17 12:44 Ventolin 0.083% Nebulizer Soln - NEB Q4H PRN SHORT OF BREATH/WHEEZING Amiodarone HCl 100 mg 07/17/17 10:00 07/19/17 09:02 Cordarone - PO 100 mg DAILY [facility] Administration Apixaban 5 mg 07/16/17 22:00 07/19/17 09:02 Eliquis - PO 5 mg BID [facility] Administration Aspirin 81 mg 07/17/17 10:00 07/19/17 09:01 Asa - PO 81 mg DAILY [facility] Administration Digoxin 0.125 mg 07/17/17 10:00 07/19/17 09:02 Lanoxin - PO 0.125 mg DAILY [facility] Administration Methimazole 10 mg 07/17/17 10:00 07/19/17 09:12 Tapazole - PO 10 mg DAILY [facility] Administration Metoprolol Tartrate 50 mg 07/17/17 07:15 07/19/17 05:45 Lopressor - PO Not Given TID [facility] Rosuvastatin [place] 5 mg 07/17/17 22:00 07/18/17 21:28 Crestor - PO 5 mg HS [facility] Administration Tiotropium [place] 1 puff 07/17/17 10:00 07/19/17 09:03 Spiriva - IH 1 puff DAILY [facility] Administration ASSESSMENT/PLAN: 82F with PMH of paroxysmal afib, diastolic CHF, htn, CAD, hld, hyperthyroidism, COPD, presents with worsening sob, found to have afib with RVR. Cardiovascular # Afib with RVR - Cardizem drip d/c'd - Metoprolol and digoxin - continue Eliquis for anticoagulation - Cardiology (Dr. Weir) recs appreciated - trop negative x4 # diastolic CHF - strict I&O's - Digoxin - Cardiology on board # CAD - Continue home med of ASA # htn - Continue home med of Metoprolol Respiratory # sob - bipap dc'd - on NC O2, stable - maintain SpO2 > 90% # COPD - continue home med of Spiriva, bronchodilator Renal # CARMEN - monitor renal function - Cr improved to 0.9 - avoid nephrotoxic agents Endocrine # hyperthyroidism - continue home med of Methimazole - thyroid studies normal FENI/GI - Fluids: po - Electrolytes: wnl, continue to monitor - Nutrition: cholesterol/fat/sodium reduced diet Prophylaxis - DVT ppx with Eliquis Dispo: Transfer to tele Visit type - Emergency Visit Emergency Visit: Yes ED Registration Date: 07/16/17 Care time: The patient presented to the Emergency Department on the above date and was hospitalized for further evaluation of their emergent condition. - New Patient This patient is new to me today: Yes Date on this admission: 07/19/17 - Critical Care Critical Care patient: Yes Total Critical Care Time (in minutes): 35 Critical Care Statement: The care of this patient involved high complexity decision making to prevent further life threatening deterioration of the patient 's condition and/or to evaluate & treat vital organ system(s) failure or risk of failure.
--- NOTE | 2017-07-19 14:18 | EKG ---
Test Reason : Blood Pressure : / mmHG Vent. Rate : 139 BPM Atrial Rate : 144 BPM P-R Int : 000 ms QRS Dur : 068 ms QT Int : 314 ms P-R-T Axes : 000 056 004 degrees QTc Int : 477 ms ATRIAL FIBRILLATION WITH RAPID VENTRICULAR RESPONSE NONSPECIFIC ST AND T WAVE ABNORMALITY ABNORMAL ECG WHEN COMPARED WITH ECG OF 14-MAY-2016 02:33, NO SIGNIFICANT CHANGE WAS FOUND Confirmed by SILVIA DAVIDSON MD ([id number] on 07/19/2017 2:17:29 PM Referred By: Confirmed By:SILVIA DAVIDSON MD
[2017-07-19] MEDS ORDERED: TORSEMIDE 20 MG TABLET (FP) PO SCH (14:30)
--- NOTE | 2017-07-19 15:08 | PN ---
Teaching Attending Note Name of Resident: Oswald Botello ATTENDING PHYSICIAN STATEMENT I saw and evaluated the patient. I reviewed the resident's note and discussed the case with the resident. I agree with the resident's findings and plan as documented. SUBJECTIVE: Patient seen and examined in the ICU. Awake and alert. Reports breathing is better. No CP. Rate controlled AFib. Intake & Output 07/16/17 07/17/17 07/18/17 07/19/17 23:59 23:59 23:59 23:59 Intake Total 462 600 120 Output Total 200 400 Balance 462 400 -280 Weight 155 lb 162 lb 162 lb 11.2 oz Last Vital Signs Temp Pulse Resp BP Pulse Ox 97.8 F 76 23 90/79 97 07/19/17 10:00 07/19/17 10:00 07/19/17 10:00 07/19/17 10:00 07/19/17 08:16 Active Medications Albuterol Sulfate (Ventolin 0.083% Nebulizer Soln -) 1 amp NEB Q4H PRN PRN Reason: SHORT OF BREATH/WHEEZING Amiodarone HCl (Cordarone -) 100 mg PO DAILY [facility] Last Admin: 07/19/17 09:02 Dose: 100 mg Apixaban (Eliquis -) 5 mg PO BID [facility] Last Admin: 07/19/17 09:02 Dose: 5 mg Aspirin (Asa -) 81 mg PO DAILY [facility] Last Admin: 07/19/17 09:01 Dose: 81 mg Digoxin (Lanoxin -) 0.125 mg PO DAILY [facility] Last Admin: 07/19/17 09:02 Dose: 0.125 mg Methimazole (Tapazole -) 10 mg PO DAILY [facility] Last Admin: 07/19/17 09:12 Dose: 10 mg Metoprolol Tartrate (Lopressor -) 50 mg PO TID [facility] Last Admin: 07/19/17 14:40 Dose: Not Given Rosuvastatin Calcium (Crestor -) 5 mg PO HS [facility] Last Admin: 07/18/17 21:28 Dose: 5 mg Tiotropium [place] (Spiriva -) 1 puff IH DAILY [facility] Last Admin: 07/19/17 09:03 Dose: 1 puff Torsemide (Demadex -) 20 mg PO Q2D@1000 [facility] Constitutional: Yes: Awake and alert, NAD Cardiovascular: Yes: Pulse Irregular. No: Bruit, Gallop, Rub Respiratory: Yes: basilar rhonchi, on nasal O2 Gastrointestinal: Yes: WNL, Normal Bowel Sounds. No: Distention, Tenderness Renal/: Yes: WNL Labs: Laboratory Results - last 24 hr 07/19/17 07/19/17 05:57 05:57 WBC 9.1 RBC 3.48 L Hgb 10.7 Hct 30.9 L MCV 88.8 MCH 30.7 MCHC 34.6 RDW 14.5 Plt Count 223 MPV 8.9 Neutrophils % 77.4 Lymphocytes % 12.6 Monocytes % 7.5 Eosinophils % 2.0 Basophils % 0.5 Sodium 142 Potassium 4.0 Chloride 103 Carbon Dioxide 31 Anion Gap 8 BUN 26 H Creatinine 0.9 Random Glucose 128 H Calcium 8.6 Phosphorus 2.8 Magnesium 2.2 Problem List - Problems (1) Atrial fibrillation with rapid ventricular response Assessment/Plan: Code(s): I48.91 - UNSPECIFIED ATRIAL FIBRILLATION (2) Shortness of breath Assessment/Plan: Code(s): R06.02 - SHORTNESS OF BREATH (3) Transaminitis Assessment/Plan: Code(s): R74.0 - NONSPEC ELEV OF LEVELS OF TRANSAMNS & LACTIC ACID DEHYDRGNSE (4) Leukocytosis Assessment/Plan: Code(s): D72.829 - ELEVATED WHITE BLOOD CELL COUNT, UNSPECIFIED (5) CARMEN (acute kidney injury) Assessment/Plan: Code(s): N17.9 - ACUTE KIDNEY FAILURE, UNSPECIFIED (6) ASHD (arteriosclerotic heart disease) Assessment/Plan: Code(s): I25.10 - ATHSCL HEART DISEASE OF [place] CORONARY ARTERY W/O ANG PCTRS (7) COPD (chronic obstructive pulmonary disease) Assessment/Plan: Code(s): J44.9 - CHRONIC OBSTRUCTIVE PULMONARY DISEASE, UNSPECIFIED Qualifiers: (8) HLD (hyperlipidemia) Assessment/Plan: Code(s): E78.5 - HYPERLIPIDEMIA, UNSPECIFIED (9) HTN (hypertension) Assessment/Plan: Code(s): I10 - ESSENTIAL (PRIMARY) HYPERTENSION Qualifiers: Hypertension type: essential hypertension Qualified Code(s): I10 - Essential (primary) hypertension (10) Hyperthyroidism Assessment/Plan: Code(s): E05.90 - THYROTOXICOSIS, UNSP WITHOUT THYROTOXIC CRISIS OR STORM PLAN: Monitor off Cardimartam ip O2 to maintain saturation Strict I & O Monitor off systemic steroids BD TX Spiriva OD Cardiac Telemetry monitoring No further sedatives Dr Tripp Critical care time spent in reviewing chart, evaluating patient and formulating plan - 36 minutes.
[2017-07-19] MEDS: ROSUVASTATIN CA 5 MG TABLET (FP) PO SCH (22:02)
--- NOTE | 2017-07-19 23:45 | PN ---
Progress Note (short form) - Note Progress Note: Agree with ROWDY Giles's note -Tom Nolen MD
--- NOTE | 2017-07-19 23:46 | PN ---
Progress Note (short form) - Note Progress Note: Agree with ROWDY Giles's note -Tom Nolen MD
[2017-07-20] MEDS ORDERED: ALBUTEROL SO4 0.083% IH SOL 2.5 MG/3 ML VIAL.NEB. NEB PRN (00:15)
[2017-07-20] MEDS ORDERED: METOPROLOL TARTRATE 50 MG TABLET (FP) PO SCH (06:00)
[2017-07-20 06:59] LABS: BASO % 0.5 % (0-2.0); EOS % 1.6 % (0-4.5); HEMOGLOBIN 11.2 GM/dL (10.7-15.3); LYMPH % 13.8 % (8-40); MCHC 33.9 g/dl (32.0-36.0); MEAN CELL VOLUME 88.4 fl (80-96); MEAN PLT VOLUME 8.7 fl (7.5-11.1); MONO % 7.1 % (3.8-10.2); PLATELET COUNT 229 K/MM3 (134-434); RBC 3.73 M/mm3 (3.60-5.2); RDW 14.4 % (11.6-15.6); WHITE BLOOD COUNT 9.3 K/mm3 (4.0-10.0)
[2017-07-20 07:19] LABS: CHLORIDE 98 mmol/L (98-107); POTASSIUM 3.8 mmol/L (3.5-5.1); SODIUM 139 mmol/L (136-145)
[2017-07-20 07:40] LABS: ANION GAP 6 (8-16); BLOOD UREA NITROGEN 25 mg/dL (7-18); CALCIUM 8.7 mg/dL (8.5-10.1); CO2 35 mmol/L (21-32); CREATININE 0.9 mg/dL (0.55-1.02); GLUCOSE,RANDOM 129 mg/dL (74-106); MAGNESIUM 1.9 mg/dL (1.8-2.4)
[2017-07-20 09:16] VITALS: PULSE 67
[2017-07-20] MEDS ORDERED: METHIMAZOLE 10 MG TABLET (FP) PO SCH (10:00)
[2017-07-20] MEDS ORDERED: DIGOXIN 0.125 MG TABLET (FP) PO SCH (10:00)
[2017-07-20] MEDS ORDERED: APIXABAN 5 MG TABLET PO SCH (10:00)
[2017-07-20] MEDS ORDERED: ASPIRIN 81 MG CHEWABLE TABLETS PO SCH (10:00)
[2017-07-20] MEDS ORDERED: TIOTROPIUM BROMIDE 18 MCG CAPSULES IH SCH (10:00)
[2017-07-20] MEDS ORDERED: AMIODARONE HCL 200 MG TABLET (FP) PO SCH (10:00)
--- NOTE | 2017-07-20 10:30 | DS ---
Physical Examination Vital Signs: Vital Signs Temperature 99.4 F 07/20/17 06:00 Pulse Rate 67 07/20/17 09:14 Respiratory Rate 20 07/20/17 06:00 Blood Pressure 117/47 07/20/17 06:00 O2 Sat by Pulse Oximetry (%) 99 07/19/17 21:00 Constitutional: Yes: Well Nourished, No Distress Cardiovascular: Yes: WNL, Regular Rate and Rhythm. No: Bruit, Gallop, Rub Respiratory: Yes: WNL, Regular, CTA Bilaterally, Rales (bibasilar). No: On Nasal O2, SOB, Tachypnea, Wheezes Gastrointestinal: Yes: WNL, Normal Bowel Sounds, Soft. No: Distention, Tenderness Renal/: Yes: WNL Extremities: Yes: WNL Edema: No Neurological: Yes: WNL, Alert, Oriented Psychiatric: Yes: WNL, Alert, Oriented Labs: CBC, BMP 07/20/17 06:30 07/20/17 06:30 Discharge Summary Reason For Visit: SOB, ATRIAL FIBRILLATION Current Active Problems Afib (Chronic) Atelectasis of left lung (Acute) Hospital Course: 82 year old female admitted for worsening SOB secondary to rapid afib w/ rvr. Pt was successfully managed in ICU on cardizem drip. Cardiology consult appreciated. Pt started on amiodarone, metoprolol tartrate 50mg tid. With better control of HR and covertion to SR, pt's symptoms resolved and she currently denies any sob. Episodes of hypotention, borderline leukocytosis noted , however infectious work up neg. Left basilar atelectasis on chest xray/ct, pt advised to use IS at home. She is ambulating without difficulty. Vitals stable. Pt is medically cleared for discharge. Pt advised to f/u w/ pcp and cardiology as directed. Condition: Good - Instructions Diet, Activity, Other Instructions: low fat diet as directed resume prev activity use Incentive Spirometer 10x/hr at home when awake your medications have been adjusted. Metoprolol tartrate 3xday, Amiodarone daily continue water pill(torsemide) every other day Adequate hydration- 8-10glasses/fluids at least a day Please follow up with PCP Dr.Schirripa gaspar in 7 days or before. Your medications might need adjustment. Please f/u with cardiology as directed Go to ED if worsening SOB, chest pain, chest discomfort, persistent n/v/d, unilateral weakness Referrals: Haley Weir MD [Staff Physician] - 1 Week Selvin Rios MD [Primary Care Provider] - 1 Week Disposition: VNS/HOME HEALTH CARE - Home Medications Comprehensive Discharge Medication List: Ambulatory Orders Aspirin [ASA -] 81 mg PO DAILY 11/20/13 Methimazole 10 mg PO DAILY 11/20/13 Apixaban [Eliquis] 5 mg PO BID 01/15/16 Digoxin [Lanoxin -] 0.125 mg PO DAILY tablet 01/24/16 Rosuvastatin Calcium [Crestor] 5 mg PO HS 05/13/16 Ipratropium/Albuterol Sulfate [Combivent Respimat Inhal [place]] 4 gm IH TID PRN # 1 aer.w.adap 05/18/16 Tiotropium [place] [Spiriva] 1 puff IH DAILY #1 inh 05/18/16 Amiodarone HCl 100 mg PO DAILY #30 tablet 07/20/17 Metoprolol Tartrate [Lopressor -] 50 mg PO TID 14 Days #42 tablet 07/20/17 Torsemide [Demadex -] 20 mg PO Q2D@1000 tablet 07/20/17
[2017-07-20 10:57] VITALS: BP 134/57; TEMP 98
[2017-07-20] MEDS ORDERED: ROSUVASTATIN CA 5 MG TABLET (FP) PO SCH (22:00)
== END 2017-07-20 11:46 | disposition home health service (06) | DRG 309 ==
LOC: JER 09:38 → JERBED 13:32 → JICU 23:04 → J4W 07-19 19:15
PROVIDERS: ADMIT Internal Medicine; ATTEND Internal Medicine
PROC: 5A0945Z Assistance with Respiratory Ventilation, 24-96 Consecutive Hours (ICD-10-PCS; principal; 2017-07-16)
DX: I48.0 Paroxysmal atrial fibrillation (principal); N17.9 Acute kidney failure, unspecified; J98.11 Atelectasis; I50.30 Unspecified diastolic (congestive) heart failure; R74.0 Nonspecific elevation of levels of transaminase and lactic acid dehydrogenase [LDH]; D72.829 Elevated white blood cell count, unspecified; I25.10 Atherosclerotic heart disease of native coronary artery without angina pectoris; J44.9 Chronic obstructive pulmonary disease, unspecified; E78.5 Hyperlipidemia, unspecified; E05.90 Thyrotoxicosis, unspecified without thyrotoxic crisis or storm; I11.0 Hypertensive heart disease with heart failure; R06.02 Shortness of breath; E87.6 Hypokalemia
CPT/HCPCS: 36415; 36600; 71045-TC-FY; 71250-TC; 80048; 80053; 80162; 81003; 81015; 82150; 82550; 82803; 83690; 83735; 84100; 84439; 84443; 84481; 84484; 85025; 85027; 85610; 85730; 87040; 87086; 87633; 87804; 90670; 93005; 93010; 93306-TC; 94010; 94660; 97116-GP; 97161-GP; 99285-25

== ENCOUNTER 2018-08-24 16:00 | Inpatient (IN) | payer OTHER ==
[2018-08-24] MEDS ORDERED: morphine CARPU-JECT 4 MG/1 ML DISP.SYRIN IVPUSH ONE (17:12)
[2018-08-24] MEDS ORDERED: MORPHINE SULFATE 2 MG/ML VIAL ONE ×2 (17:28→23:47)
--- NOTE | 2018-08-24 17:32 | PDOC ---
History of Present Illness - General Chief Complaint: Injury Stated Complaint: FALL Time Seen by Provider: 08/24/18 16:51 History Source: Patient Exam Limitations: No Limitations - History of Present Illness Initial Comments: 08/24/18 17:32 82 yo F with history of atrial fibrillation (on Eliquis 5mg, Dig and Cardizem) and COPD presents to ED after fall. present, speaks bermudian. States tried to sit on the edge of her seat, fell accidentally onto right hip without hitting head, LOC, changes in vision/speech, N/V, weakness or sensory deficits on 1 side. Past History - Past Medical History Allergies/Adverse Reactions: Allergies Allergy/AdvReac Type Severity Reaction Status Date / Time shrimp Allergy Verified 08/24/18 17:12 IV DYE Allergy Uncoded 08/24/18 17:12 SHRIMP Allergy Uncoded 08/24/18 17:12 Home Medications: Ambulatory Orders Aspirin [ASA -] 81 mg PO DAILY 11/20/13 Methimazole 5 mg PO DAILY 11/20/13 Apixaban [Eliquis] 5 mg PO BID 01/15/16 Digoxin [Lanoxin -] 0.125 mg PO DAILY tablet 01/24/16 Rosuvastatin Calcium [Crestor] 5 mg PO HS 05/13/16 Ipratropium/Albuterol Sulfate [Combivent Respimat 20-100 Mcg] 4 gm IH TID PRN # 1 aer.w.adap 05/18/16 Tiotropium [place] [Spiriva] 1 puff IH DAILY #1 inh 05/18/16 Amiodarone HCl 100 mg PO DAILY #30 tablet 07/20/17 Metoprolol Tartrate [Lopressor -] 50 mg PO TID 14 Days #42 tablet 07/20/17 Torsemide [Demadex -] 20 mg PO Q2D@1000 tablet 07/20/17 Cardiac Disorders: Yes (A-FIB) COPD: Yes GI Disorders: Yes (gerd) HTN: Yes Hypercholesterolemia: Yes Kidney Stones: Yes Thyroid Disease: Yes - Surgical History Appendectomy: Yes Cardiac Surgery: Yes (STENT X3) - Immunization History Immunization Up to Date: Yes - Suicide/Smoking/Psychosocial Hx Smoking Status: No Smoking History: Never smoked Have you smoked in the past 12 months: No Number of Cigarettes Smoked Daily: 0 Information on smoking cessation initiated: No Hx Alcohol Use: No Drug/Substance Use Hx: No Substance Use Type: None *Physical Exam - Vital Signs Last Vital Signs Temp Pulse Resp BP Pulse Ox 99.2 F 53 L 20 169/59 L 96 08/24/18 16:29 08/24/18 16:29 08/24/18 16:29 08/24/18 16:29 08/24/18 16:29 ED Treatment Course - LABORATORY CBC & Chemistry Diagram: 08/24/18 17:15 08/24/18 17:15 *DC/Admit/Observation/Transfer Diagnosis at time of Disposition: Hip fracture Qualifiers: Encounter type: initial encounter Fracture type: closed Laterality: right Qualified Code(s): S72.001A - Fracture of unspecified part of neck of right femur, initial encounter for closed fracture - Discharge Dispostion Condition at time of disposition: Stable Decision to Admit order: Yes - Referrals - Patient Instructions - Post Discharge Activity
[2018-08-24 17:41] LABS: BASO % 0.5 % (0-2.0); HEMATOCRIT 35.9 % (32.4-45.2); HEMOGLOBIN 11.6 GM/dL (10.7-15.3); LYMPH % 9.4 % (8-40); MCH 28.8 pg (25.7-33.7); MCHC 32.4 g/dl (32.0-36.0); MEAN PLT VOLUME 8.7 fl (7.5-11.1); MONO % 5.7 % (3.8-10.2); NEUT % 83.4 % (42.8-82.8); PLATELET COUNT 241 K/MM3 (134-434); RBC 4.03 M/mm3 (3.60-5.2); RDW 14.6 % (11.6-15.6); WHITE BLOOD COUNT 12.9 K/mm3 (4.0-10.0)
[2018-08-24 17:54] LABS: INR 1.74 (0.83-1.09); PROTHROMBIN TIME (PATIENT) 20.7 SEC (9.7-13.0)
[2018-08-24 17:57] LABS: ACTIVATED PTT 32.8 SECONDS (25.2-36.5)
[2018-08-24 18:11] LABS: ALBUMIN 3.6 g/dl (3.4-5.0); ALK PHOS 117 U/L (45-117); ANION GAP 8 MMOL/L (8-16); BILIRUBIN,TOTAL 0.5 mg/dL (0.2-1); BLOOD UREA NITROGEN 36 mg/dL (7-18); CALCIUM 8.8 mg/dL (8.5-10.1); CHLORIDE 104 mmol/L (98-107); CO2 28 mmol/L (21-32); CREATININE 1.3 mg/dL (0.55-1.3); GLUCOSE,RANDOM 119 mg/dL (74-106); POTASSIUM 3.7 mmol/L (3.5-5.1); SGOT/AST 14 U/L (15-37); SGPT/ALT 16 U/L (13-61); SODIUM 139 mmol/L (136-145); TOT PROT 6.9 g/dl (6.4-8.2)
--- NOTE | 2018-08-24 20:20 | CONSULT ---
Consult - text type - Consultation Consultation Note: ORTHOPEDIC SURGERY CONSULTATION NOTE Department of Orthopedic Surgery HISTORY OF PRESENT ILLNESS Ms. Cartagena is an 87 year old female with a past medical history of atrial fibrillation (on Eliquis 5mg, Dig and Cardizem) and COPD presents to ED after fall. and daughter present, speaks Indonesian. States tried to sit on the edge of her seat, fell accidentally onto right hip without hitting head. Denies LOC, changes in vision/speech, N/V, weakness or sensory deficits. The patient was BIBA to [facility] ER and diagnosed with a right hip fracture. The orthopedic service was consulted for a right hip fracture. The patient notes pain to the right hip which worsens with movement, and improves with pain. Denies any other injuries. Denies numbness, tingling or other constitutional complaints. The lives at home with her . Denies tobacco use, drug use, alcohol abuse. She uses no assistive devices at baseline, but does have a walker at home. FAMILY HISTORY Non-contributory REVIEW OF SYMPTOMS A twelve-point review of systems was performed and was negative except as noted in HPI. PHYSICAL EXAM Constitutional: Alert and oriented to person, place, and time. Appears well- developed and well-nourished. No acute distress, appropriate mood and affect. Right Upper Extremity: Skin warm, dry, and intact; no lesions, rashes or ulcers noted. Muscle mass equal and symmetric to contralateral side. No atrophy noted. No masses or effusions noted. No tenderness to palpation all joints; nontender throughout rest of extremity. Full passive and active ROM, free from pain. Joints stable with no pathologic laxity. M/R/U/MSK/AX motor intact; SILT distally; 2+ radial pulses; Cap refill brisk. Tone and reflexes normal. Left Upper Extremity: Skin warm, dry, and intact; no lesions, rashes or ulcers noted. Muscle mass equal and symmetric to contralateral side. No atrophy noted. No masses or effusions noted. No tenderness to palpation all joints; nontender throughout rest of extremity. Full passive and active ROM, free from pain. Joints stable with no pathologic laxity. M/R/U/MSK/AX motor intact; SILT distally; 2+ radial pulses; Cap refill brisk. Tone and reflexes normal. Right Lower Extremity: Skin warm, dry, and intact; no lesions, rashes or ulcers noted. Leg is shortened and externally rotated. Muscle mass equal and symmetric to contralateral side. No atrophy noted. No masses or effusions noted. Tender to palpation at greater trochanter. Nontender at knee ankle and foot joints. No cords or calf tenderness No significant calf/ankle edema. Full passive and active ROM of the knee, ankle , and foot, free from pain. Joints stable with no pathologic laxity. EHL/TA/GS motor intact; SILT distally; 2+ DP pulses; Cap refill brisk. Tone and reflexes normal. Unable to SLR, Positive Log roll test. Left Lower Extremity: Skin warm, dry, and intact; no lesions, rashes or ulcers noted. Muscle mass equal and symmetric to contralateral side. No atrophy noted. No masses or effusions noted. No tenderness to palpation all joints; nontender throughout rest of extremity. No cords or calf tenderness No significant calf/ankle edema. Full passive and active ROM, free from pain. Joints stable with no pathologic laxity. EHL/TA/GS motor intact; SILT distally; 2+ DP pulses; Cap refill brisk. Tone and reflexes normal. Able to SLR, Negative Log roll test. Past Medical History Cardio/Vascular AFIB,CAD,HTN,Hyperlipdemia Pulmonary Asthma Gastrointestinal Gastritis,GERD Endocrine Hyperthyroidism Past Surgical History Past Surgical History Appendectomy,Stent Social History Smoking history Never smoked Aproximately how many 0 cigarettes per day Hx Alcohol Use No History of Substance Use None ADL Independent History of Recent Travel No Allergies Allergy/AdvReac Type Severity Reaction Status Date / Time shrimp Allergy Verified 08/24/18 17:12 IV DYE Allergy Uncoded 08/24/18 17:12 SHRIMP Allergy Uncoded 08/24/18 17:12 Vital Signs (last) Temp Pulse Resp BP Pulse Ox 99.2 F 53 L 20 169/59 L 96 08/24/18 16:29 08/24/18 16:29 08/24/18 16:29 08/24/18 16:29 08/24/18 16:29 Intake and Output 08/22/18 08/23/18 08/24/18 23:59 23:59 23:59 Other: Weight 145 lb Height 5 ft 3 in Body Mass Index (BMI) 25.7 Weight Measurement Method Est/Stated by Patient Laboratory 08/24/18 17:15 08/24/18 17:15 PT with INR 20.70 SEC (9.7-13.0) H 08/24/18 17:15 PTT (Actin FS) 32.8 SECONDS (25.2-36.5) 08/24/18 17:15 IMAGING I personally reviewed all radiographs, CT, and other imaging. They demonstrate a right basicervical femoral neck hip fracture. ASSESSMENT AND PLAN Ms. Cartagena is a 83 year old female presenting status post mechanical fall at home with a right sided basicervical femoral neck hip fracture. We have reviewed the imaging and clinical findings in detail, as well as their potential implications. This is an operative fracture. Admit Plan for surgery Wednesday08/26/18 NWB RLE CBC/BMP/Coags Type and Screen/2 units PRBC on hold IV Fluids EKG CXR UA Needs medical and cardiology clearance. All questions were answered. Thank you for involving our team in the care of this patient. Please call us at [phone] with questions.
[2018-08-24] MEDS ORDERED: PATIENT'S OWN MEDICATION (NON-FORMULARY) (Ipratropium/Albuterol Sulfate [Combivent Respima IH PRN (20:47)
[2018-08-24] MEDS ORDERED: METOPROLOL TARTRATE 50 MG TABLET (FP) ONE (21:34)
[2018-08-24] MEDS ORDERED: ONDANSETRON 4 MG/2 ML VIAL IVPUSH ONE (21:44)
[2018-08-24] MEDS ORDERED: ONDANSETRON 4 MG/2 ML VIAL ONE (21:45)
--- NOTE | 2018-08-24 21:48 | PN ---
Teaching Attending Note Name of Resident: Ricardo Montejo ATTENDING PHYSICIAN STATEMENT I saw and evaluated the patient. I reviewed the resident's note and discussed the case with the resident. I agree with the resident's findings and plan as documented. SUBJECTIVE: Patient is a 83 year old woman with a PMH of GERD, gastritis, hyperthyroidism, HLD, HTN, ASHD, Afib on eliquis and COPD, who presents to the ER after a fall. As per , she was sitting on the edge of her seat at which time she slipped and fell hurting her right hip and hitting her head. denies any LOC, chest pain, SOB, abdominal pain, dizziness, blurry vision, urinary or fecal incontinence, dysuria, frequency, nausea or vomiting. OBJECTIVE: Alert Vital Signs Period Temp Pulse Resp BP Sys/[place] Pulse Ox Last 24 Hr 99.2 F 53 20 169/59 96 HEENT: No Jaundice, eye redness or discharge, PERRLA, EOMI. Normocephalic, atraumatic. External ears are normal and hearing is grossly intact. No nasal discharge. Neck: Supple, nontender. No palpable adenopathy or thyromegaly. No JVD Chest: Good effort. Clear to auscultation and percussion. Heart: Regular. No S3, rub or murmur Abdomen: Not distended, soft, nontender and no HSM. No rebound or guarding. Normal bowel sounds. Ext: Peripheral pulses intact. No leg edema. [place] RLE, externally rotated. Tender right hip with reduced ROM. Skin: Warm and dry. No petechiae, rash or ecchymosis. Neuro: Alert. Oriented x3. CN 2-12 grossly intact. Sensation grossly intact in all four extremities and DTR are symmetric. Psych: Appropriate mood and affect. Good insight. Current Medications Generic Name Dose Route Start Last Admin Trade Name Freq PRN Reason Stop Dose Admin Amiodarone HCl 100 mg 08/25/18 10:00 Cordarone - PO DAILY [facility] Digoxin 0.125 mg 08/25/18 10:00 Lanoxin - PO DAILY [facility] Methimazole 5 mg 08/25/18 10:00 Tapazole - PO DAILY [facility] Metoprolol Tartrate 50 mg 08/24/18 22:00 Lopressor - PO TID [facility] Non-Formulary Medication 4 gm 08/24/18 20:47 Ipratropium/Albuterol Sulfate [Combivent Respimat 20-100 Mcg] IH TID PRN SHORT OF BREATH/WHEEZING Rosuvastatin Calcium 5 mg 08/24/18 22:00 Crestor - PO HS [facility] Tiotropium [place] 1 puff 08/25/18 10:00 Spiriva Respimat IH DAILY [facility] Torsemide 20 mg 08/26/18 10:00 Demadex - PO Q2D@1000 [facility] Home Medications Medication Instructions Recorded Aspirin [ASA -] 81 mg PO DAILY 11/20/13 Methimazole 5 mg PO DAILY 11/20/13 Apixaban [Eliquis] 5 mg PO BID 01/15/16 Digoxin [Lanoxin -] 0.125 mg PO DAILY tablet 01/24/16 Rosuvastatin [place] [Crestor] 5 mg PO HS 05/13/16 Ipratropium/Albuterol Sulfate 4 gm IH TID PRN #1 aer.w.adap 05/18/16 [Combivent Respimat 20-100 Mcg] Tiotropium [place] [Spiriva] 1 puff IH DAILY #1 inh 05/18/16 Amiodarone HCl 100 mg PO DAILY #30 tablet 07/20/17 Metoprolol Tartrate [Lopressor -] 50 mg PO TID 14 Days #42 tablet 07/20/17 Torsemide [Demadex -] 20 mg PO Q2D@1000 tablet 07/20/17 Abnormal Lab Results 08/24/18 08/24/18 08/24/18 17:15 17:15 17:15 WBC 12.9 H Absolute Neuts (auto) 10.7 H Neutrophils % 83.4 H PT with INR 20.70 H INR 1.74 H BUN 36 H Random Glucose 119 H AST 14 L ASSESSMENT AND PLAN: 1. Fall and Right intertrochanteric fracture - Fracture noted on xray. No acute pathology on head CT scan. Seen by Ortho. Will hold eliquis and aspirin and consult cardiology for clearance. Surgery planned for 08/26/18. Type and hold 2 units PRBC, hydrate gently, get CXR and get urinalysis to rule out UTI. Leukocytosis likely due to stress reaction. Repeat head CT scan in 24 hours in view of eliquis therapy. EKG shows sinus bradycardia with no acute ST-T wave changes. Will discuss reduction of lopressor dose with cardiology. Monitor on telemetry and continue comprehensive care of all her comorbid conditions. 2. Hypertension - Restart outpatient antihypertensive drugs and revise regimen to ensure smooth [id number] good BP control. Nonpharmacologic measures to control hypertension like weight loss, salt restriction and exercise discussed. 3. DVT prophylaxis - SCD, TEDs 4. Advance directives - Full code
[2018-08-24] MEDS ORDERED: MORPHINE SULFATE 2 MG/ML VIAL IVPUSH PRN (21:53)
[2018-08-24] MEDS ORDERED: KETOROLAC TROMETHAMINE 15 MG/ML VIAL IVPUSH PRN (21:53)
--- NOTE | 2018-08-24 21:53 | HP ---
CHIEF COMPLAINT: fall HISTORY OF PRESENT ILLNESS: 83-year-old female with a history of atrial fibrillation (on eliquis), hyperthyroidism and COPD coming in status post fall. Her reports that the patient was getting dressed When she accidentally lost her balance and fell on her right side, hitting her for head and her right hip. Denies any loss of consciousness, lightheadedness, dizziness, chest pain, palpitations, nausea, vomiting, headache. She reports that after she fell she had severe pain on the right hip And was unable to walk. In the emergency room, she Had a x-ray of the right hip which showed a right intertrochanteric fracture. Orthopedic surgery saw the patient and Would like admission for Repair on Wednesday. They request cardiac clearance due to the patient's history of atrial fibrillation. The patient denies history of falls and says this is the first time this is ever happen to her. Sure ports walking with a walker at home, without any significant abnormalities. She reports that her pain has much improved after being given morphine by the emergency room. She complains of mild nausea but denies any other symptoms. She follows with a product development intern that is not on our service, and the daughter reports that she will give us the name Of one of his affiliates that does come here tomorrow. ER course was notable for: (1) X ray + for R intertrochanteric fracture (2) CT head - (3) Recent Travel: Denies PAST MEDICAL HISTORY: Atrial Fibrillation on Eliquis PAST SURGICAL HISTORY: appendectomy, R sided rotator cuff repair Social History: Smoking: Denies Alcohol: Denies Drugs: Denies Family History: Denies any family history of heart disease, stroke, cancer, Reports some diabetes that runs in the family. Allergies shrimp Allergy (Verified 08/24/18 17:12) IV DYE Allergy (Uncoded 08/24/18 17:12) SHRIMP Allergy (Uncoded 08/24/18 17:12) HOME MEDICATIONS: Home Medications Medication Instructions Recorded Aspirin [ASA -] 81 mg PO DAILY 11/20/13 Methimazole 5 mg PO DAILY 11/20/13 Apixaban [Eliquis] 5 mg PO BID 01/15/16 Digoxin [Lanoxin -] 0.125 mg PO DAILY tablet 01/24/16 Rosuvastatin Calcium [Crestor] 5 mg PO HS 05/13/16 Ipratropium/Albuterol Sulfate 4 gm IH TID PRN #1 aer.w.adap 05/18/16 [Combivent Respimat 20-100 Mcg] Tiotropium [place] [Spiriva] 1 puff IH DAILY #1 inh 05/18/16 Amiodarone HCl 100 mg PO DAILY #30 tablet 07/20/17 Metoprolol Tartrate [Lopressor -] 50 mg PO TID 14 Days #42 tablet 07/20/17 Torsemide [Demadex -] 20 mg PO Q2D@1000 tablet 07/20/17 REVIEW OF SYSTEMS CONSTITUTIONAL: Absent: fever, chills, diaphoresis, generalized weakness, malaise, loss of appetite, weight change HEENT: Absent: rhinorrhea, nasal congestion, throat pain, throat swelling, difficulty swallowing, mouth swelling, ear pain, eye pain, visual changes CARDIOVASCULAR: Absent: chest pain, syncope, palpitations, irregular heart rate, lightheadedness , peripheral edema RESPIRATORY: Absent: cough, shortness of breath, dyspnea with exertion, orthopnea, wheezing, stridor, hemoptysis GASTROINTESTINAL: Absent: abdominal pain, abdominal distension, nausea, vomiting, diarrhea, constipation, melena, hematochezia GENITOURINARY: Absent: dysuria, frequency, urgency, hesitancy, hematuria, flank pain, genital pain MUSCULOSKELETAL: Absent: myalgia, arthralgia, joint swelling, back pain, neck pain SKIN: Absent: rash, itching, pallor HEMATOLOGIC/IMMUNOLOGIC: Absent: easy bleeding, easy bruising, lymphadenopathy, frequent infections ENDOCRINE: Absent: unexplained weight gain, unexplained weight loss, heat intolerance, cold intolerance NEUROLOGIC: Absent: headache, focal weakness or paresthesias, dizziness, unsteady gait, seizure, mental status changes, bladder or bowel incontinence PSYCHIATRIC: Absent: anxiety, depression, suicidal or homicidal ideation, hallucinations. PHYSICAL EXAMINATION Vital Signs - 24 hr 08/24/18 16:29 Temperature 99.2 F Pulse Rate 53 L Respiratory 20 Rate Blood Pressure 169/59 L O2 Sat by Pulse 96 Oximetry (%) GENERAL: A&Ox3, no acute distress EYES: PERRLA, EOMI ENT: Dry mucus membranes NECK: No JVD LUNGS: CTA, no wheezes HEART: RRR, soft systolic murmur noted ABDOMEN: Soft, nontender, BS present MUSCULOSKELETAL: No CVA Tenderness EXTREMITIES: 2+ pulses, no edema. R leg short and externally rotated. Tender to palpation on the right hip,No bruising over the affected hip. NEUROLOGICAL: Cranial nerves II-XII intact. No focal deficits in upper or lower extremities. Laboratory Results - last 24 hr 08/24/18 08/24/18 08/24/18 17:15 17:15 17:15 WBC 12.9 H RBC 4.03 Hgb 11.6 Hct 35.9 MCV 89.0 MCH 28.8 MCHC 32.4 RDW 14.6 Plt Count 241 MPV 8.7 Absolute Neuts (auto) 10.7 H Neutrophils % 83.4 H Lymphocytes % 9.4 D Monocytes % 5.7 Eosinophils % 1.0 Basophils % 0.5 Nucleated RBC % 0 PT with INR 20.70 H INR 1.74 H PTT (Actin FS) 32.8 Sodium 139 Potassium 3.7 Chloride 104 Carbon Dioxide 28 Anion Gap 8 BUN 36 H Creatinine 1.3 Est GFR (CKD-EPI)AfAm 43.93 Est GFR (CKD-EPI)NonAf 37.91 Random Glucose 119 H Calcium 8.8 Total Bilirubin 0.5 AST 14 L ALT 16 Alkaline Phosphatase 117 Creatine Kinase 48 Troponin I < 0.02 Total Protein 6.9 Albumin 3.6 Blood Type Antibody Screen 08/24/18 17:15 WBC RBC Hgb Hct MCV MCH MCHC RDW Plt Count MPV Absolute Neuts (auto) Neutrophils % Lymphocytes % Monocytes % Eosinophils % Basophils % Nucleated RBC % PT with INR INR PTT (Actin FS) Sodium Potassium Chloride Carbon Dioxide Anion Gap BUN Creatinine Est GFR (CKD-EPI)AfAm Est GFR (CKD-EPI)NonAf Random Glucose Calcium Total Bilirubin AST ALT Alkaline Phosphatase Creatine Kinase Troponin I Total Protein Albumin Blood Type O NEGATIVE Antibody Screen Negative ASSESSMENT/PLAN: 83-year-old female with a history of atrial fibrillation (on eliquis) and COPD coming in status post fall and Admitted for evaluation and management of a right intertrochanteric fracture #Right-sided intertrochanteric fracture: Status post fall, Will admit for preoperative clearance and management -EKG showed sinus bradycardia at [address]/T segment changes -unclear if patient is on aspirin, need to confirm home medications in AM -cardiology evaluation Dr. Douglas -echocardiogram ordered -held anticoagulants -repeat head CT tomorrow -UA -surgery with Dr. Foster likely wednesday pending clearance -morphine/tylenol for pain seems to be controlling her #Atrial fibrillation: patient is currently in sinus bradycardia -eliquis held perioperatively -continue beta bigg, consider reducing dose due to sinus bradycardia in the morning #Hyperthyroid: chronic -cont. methimazole #Hypertensive: Patient is hypertensive at 160s systolic, repeat 119 systolic -continue metoprolol tartrate 50 BID -continue torsemide 20 q2days #COPD: chronic -continue home medications #FEN No standing fluids Electrolytes normal Sodium controlled diet #Prophylaxis -AC held, can likely give heparin prophylaxis in AM and hold prior to surgery #Disposition -admit med surg Visit type - Emergency Visit Emergency Visit: Yes ED Registration Date: 08/24/18 Care time: The patient presented to the Emergency Department on the above date and was hospitalized for further evaluation of their emergent condition. - New Patient This patient is new to me today: Yes Date on this admission: 08/24/18 - Critical Care Critical Care patient: No
[2018-08-24] MEDS ORDERED: ACETAMINOPHEN 325 MG TABLET (FP) PO PRN (21:54)
[2018-08-24] MEDS: METOPROLOL TARTRATE 50 MG TABLET (FP) PO SCH (21:56)
[2018-08-24] MEDS: ROSUVASTATIN CA 5 MG TABLET (FP) PO SCH (22:55)
--- NOTE | 2018-08-24 23:37 | PDOC ---
Documentation entered by Zeke Mondragon SCRIBE, acting as scribe for Joan Tapia MD. Joan Tapia MD: This documentation has been prepared by the Alanna farrell Nirvannie, SCRIBE, under my direction and personally reviewed by me in its entirety. I confirm that the documentation accurately reflects all work, treatment, procedures, and medical decision making performed by me. Attending Attestation - Resident Resident Name: ZachmarquitaBaljeet - ED Attending Attestation I have performed the following: I have examined & evaluated the patient, The case was reviewed & discussed with the resident, I agree w/resident's findings & plan - HPI HPI: 08/24/18 18:56 The patient is a 83 year old female, with a significant past medical history of Afib and COPD, who presents to the emergency department s/p fall. As per , she was sitting on the edge of her seat at which time she slipped and fell hurting her right hip. denies any LOC, head/neck trauma, chest pain, or SOB. Allergies: IV dye - Physicial Exam PE: 08/24/18 18:37 GENERAL: A&Ox3, no acute distress EYES: PERRLA, EOMI ENT: Dry mucus membranes NECK: No JVD LUNGS: CTA, no wheezes HEART: RRR, soft systolic murmur noted ABDOMEN: Soft, nontender, BS present MUSCULOSKELETAL: No CVA Tenderness EXTREMITIES: 2+ pulses, no edema. R leg short and externally rotated. Tender to palpation on the right hip,No bruising over the affected hip. NEUROLOGICAL: Cranial nerves II-XII intact. No focal deficits in upper or lower extremities. - Medical Decision Making 83 yo F s/p mechanical fall No preceding chest pain, shortness of breath, palpitations Unable to get herself to standing position 08/24/18 18:38 Laboratory Tests 08/24/18 08/24/18 08/24/18 17:15 17:15 17:15 WBC 12.9 H Hgb 11.6 Hct 35.9 Plt Count 241 INR 1.74 H BUN 36 H Creatinine 1.3 Creatine Kinase 48 Troponin I < 0.02 XRay right hip - intertrochanteric fracture CT head pending Signed out to overnight team Will plan to admit
[2018-08-25 04:49] VITALS: BMI 26.3
[2018-08-25] MEDS: METOPROLOL TARTRATE 50 MG TABLET (FP) PO SCH ×3 (07:15→21:26)
[2018-08-25] MEDS ORDERED: PT OWN MED DRAWER 7, Y5N ONE (09:33)
--- NOTE | 2018-08-25 09:37 | EKG ---
Test Reason : Blood Pressure : / mmHG Vent. Rate : 055 BPM Atrial Rate : 055 BPM P-R Int : 152 ms QRS Dur : 076 ms QT Int : 490 ms P-R-T Axes : 080 056 048 degrees QTc Int : 468 ms SINUS BRADYCARDIA OTHERWISE NORMAL ECG WHEN COMPARED WITH ECG OF 16-JUL-2017 09:42, SINUS RHYTHM HAS REPLACED ATRIAL FIBRILLATION VENT. RATE HAS DECREASED BY [address] NO LONGER DEPRESSED IN ANTEROLATERAL LEADS NONSPECIFIC T WAVE ABNORMALITY NO LONGER EVIDENT IN INFERIOR LEADS T WAVE INVERSION NO LONGER EVIDENT IN ANTEROLATERAL LEADS Confirmed by JACKI ALTMAN, BETH ([id number]) on 08/25/2018 9:36:20 AM Referred By: Confirmed By:BETH ECHEVERRIA MD
[2018-08-25 09:43] LABS: HEMATOCRIT 31.6 % (32.4-45.2); HEMOGLOBIN 10.3 GM/dL (10.7-15.3); MCH 28.7 pg (25.7-33.7); MCHC 32.7 g/dl (32.0-36.0); MEAN CELL VOLUME 87.8 fl (80-96); MEAN PLT VOLUME 8.5 fl (7.5-11.1); PLATELET COUNT 242 K/MM3 (134-434); RDW 14.2 % (11.6-15.6); WHITE BLOOD COUNT 12.9 K/mm3 (4.0-10.0)
[2018-08-25] MEDS: AMIODARONE HCL 200 MG TABLET (FP) PO SCH (09:43)
[2018-08-25] MEDS: METHIMAZOLE 5 MG TABLET (FP) PO SCH (09:44)
[2018-08-25] MEDS ORDERED: DIGOXIN 0.125 MG TABLET (FP) PO SCH (10:00)
[2018-08-25] MEDS ORDERED: METHIMAZOLE 10 MG TABLET (FP) PO SCH (10:00)
[2018-08-25 10:15] LABS: CALCIUM 8.7 mg/dL (8.5-10.1); CREATININE 1.2 mg/dL (0.55-1.3); MAGNESIUM 2.4 mg/dL (1.8-2.4); PHOSPHOROUS 4.2 mg/dL (2.5-4.9); POTASSIUM 3.9 mmol/L (3.5-5.1)
--- NOTE | 2018-08-25 12:17 | ECHO ---
Name: NIKA HUTSON Exam:Adult Echocardiogram Study Date: 08/25/2018 07:25 AM Age: 83 yrs Reason For Study: Pre-op Height: 63 in Weight: 145 lb BSA: 1.7 m2 MMode/2D Measurements & Calculations IVSd: 0.90 cm Ao root diam: 3.7 cm LVIDd: 5.2 cm LA dimension: 4.7 cm LVIDs: 3.0 cm LVPWd: 0.93 cm IVSs: 1.2 cm LVPWs: 1.2 cm EDV(Teich): 132.3 ml ESV(Teich): 35.9 ml Doppler Measurements & Calculations MV E max yvonne: 93.6 cm/sec Ao V2 max: 131.8 cm/sec MV A max yvonne: 65.3 cm/sec Ao max P.4 mmHg MV E/A: 1.4 Ao V2 mean: 82.7 cm/sec Ao mean P.3 mmHg Ao V2 VTI: 27.0 cm AI P1/2t: 474.5 msec AI max yvonne: 282.9 cm/sec MR max yvonne: 467.4 cm/sec AI max P.1 mmHg MR max P.5 mmHg AI dec slope: 174.6 cm/sec2 TR max yvonne: 323.4 cm/sec Med Peak E' Yvonne: 6.1 cm/sec TR max P.9 mmHg Med E/e': 15.2 Lat Peak E' Yvonne: 6.3 cm/sec Lat E/e': 15.0 Procedure A complete two-dimensional transthoracic echocardiogram was performed (2D, M-mode, Doppler and color flow Doppler). Left Ventricle The left ventricular size, thickness and function are normal. The left ventricular ejection fraction is normal. Ejection Fraction = 60-65%. The left ventricular wall motion is normal. Right Ventricle The right ventricle is normal in size and function. Atria The left atrium is mildly dilated. Right atrial size is normal. Mitral Valve There is trace mitral regurgitation. Tricuspid Valve There is moderate tricuspid regurgitation. There is mild pulmonary hypertension. Aortic Valve No hemodynamically significant valvular aortic stenosis. Trace aortic regurgitation. Pulmonic Valve There is no pulmonic valvular regurgitation. Great Vessels The aortic root is normal size. Pericardium/Pleura There is no pericardial effusion. Interpretation Summary The left ventricular size, thickness and function are normal The right ventricle is normal in size and function. The left atrium is mildly dilated. There is trace mitral regurgitation. There is moderate tricuspid regurgitation. There is mild pulmonary hypertension. Trace aortic regurgitation. MD Kalpesh Thao 08/25/2018 12:17 PM
--- NOTE | 2018-08-25 12:34 | CON.CARD ---
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 Had a mechanical fall at home and after had hip pain. Found to have hip fx, plans for OR tomorrow. No prodrome sxs. No cp sob palps dizzy loc pnd orthopnea le edema. Has been feeling well up until this fall. Sees cardio at [facility]. PMHx: per hpi. Past surg hx: per hpi fam hx: No fam hx of cardiac disease social hx: never tob, no etoh or illicits ros: per hpi; all others normal meds: Home Medications Medication Instructions Recorded Methimazole 5 mg PO DAILY 11/20/13 Apixaban [Eliquis] 5 mg PO BID 01/15/16 Amiodarone HCl 100 mg PO DAILY #30 tablet 07/20/17 Metoprolol Tartrate [Lopressor -] 50 mg PO TID 14 Days #42 tablet 07/20/17 Torsemide [Demadex -] 20 mg PO Q2D@1000 tablet 07/20/17 Vital Signs Period Temp Pulse Resp BP Sys/Padilla Pulse Ox Last 24 Hr 97.8 F-99.3 F 53-69 16-20 119-169/45-63 95-98 NAD, no jvd rrr s1s2 no mrg cta bl nl eff aa03 no le e/c/c abd nt nd pos bs no jaundice diaphoresis pos dp pt no carotid bruits Laboratory Last Values WBC 12.9 K/mm3 (4.0-10.0) H 08/25/18 09:15 RBC 3.60 M/mm3 (3.60-5.2) 08/25/18 09:15 Hgb 10.3 GM/dL (10.7-15.3) L 08/25/18 09:15 Hct 31.6 % (32.4-45.2) L 08/25/18 09:15 MCV 87.8 fl (80-96) 08/25/18 09:15 MCH 28.7 pg (25.7-33.7) 08/25/18 09:15 MCHC 32.7 g/dl (32.0-36.0) 08/25/18 09:15 RDW 14.2 % (11.6-15.6) 08/25/18 09:15 Plt Count 242 K/MM3 (134-434) 08/25/18 09:15 MPV 8.5 fl (7.5-11.1) 08/25/18 09:15 Absolute Neuts (auto) 10.7 K/mm3 (1.5-8.0) H 08/24/18 17:15 Neutrophils % 83.4 % (42.8-82.8) H 08/24/18 17:15 Lymphocytes % 9.4 % (8-40) D 08/24/18 17:15 Monocytes % 5.7 % (3.8-10.2) 08/24/18 17:15 Eosinophils % 1.0 % (0-4.5) 08/24/18 17:15 Basophils % 0.5 % (0-2.0) 08/24/18 17:15 Nucleated RBC % 0 % (0-0) 08/24/18 17:15 PT with INR 20.70 SEC (9.7-13.0) H 08/24/18 17:15 INR 1.74 (0.83-1.09) H 08/24/18 17:15 PTT (Actin FS) 32.8 SECONDS (25.2-36.5) 08/24/18 17:15 Sodium 138 mmol/L (136-145) 08/25/18 09:15 Potassium 3.9 mmol/L (3.5-5.1) 08/25/18 09:15 Chloride 102 mmol/L (98-107) 08/25/18 09:15 Carbon Dioxide 29 mmol/L (21-32) 08/25/18 09:15 Anion Gap 7 MMOL/L (8-16) L 08/25/18 09:15 BUN 35 mg/dL (7-18) H 08/25/18 09:15 Creatinine 1.2 mg/dL (0.55-1.3) 08/25/18 09:15 Est GFR (CKD-EPI)AfAm 48.40 08/25/18 09:15 Est GFR (CKD-EPI)NonAf 41.76 08/25/18 09:15 Random Glucose 165 mg/dL (74-106) H 08/25/18 09:15 Calcium 8.7 mg/dL (8.5-10.1) 08/25/18 09:15 Phosphorus 4.2 mg/dL (2.5-4.9) 08/25/18 09:15 Magnesium 2.4 mg/dL (1.8-2.4) 08/25/18 09:15 Total Bilirubin 0.5 mg/dL (0.2-1) 08/24/18 17:15 AST 14 U/L (15-37) L 08/24/18 17:15 ALT 16 U/L (13-61) 08/24/18 17:15 Alkaline Phosphatase 117 U/L (45-117) 08/24/18 17:15 Creatine Kinase 48 U/L (26-192) 08/24/18 17:15 Troponin I < 0.02 ng/ml (0.00-0.05) 08/24/18 17:15 Total Protein 6.9 g/dl (6.4-8.2) 08/24/18 17:15 Albumin 3.6 g/dl (3.4-5.0) 08/24/18 17:15 Blood Type O NEGATIVE 08/24/18 17:15 Antibody Screen Negative 08/24/18 17:15 ecg: sr nl intervals no ischemic changes echo 08/2018: nl lv/rv, lae, mod tr, mild phtn echo 07/2017: mild-mod decreased sys fn. EF may be underestimated due to afib rhythm. Nl rv size/fn. 1+ lae. mild-mod mr/tr. Echo 08/2015: Nl lv/rv. EF 65-70%. E to A reversal. Mild Lae. 1+ AR/MR. No RVSP Cath/PCI 09/2011: pRCA 80-90% -->BETHANIE, mLAD 60-70%, dLAD 60-70% + FFR, D1 mild diffuse disease Cath/PCI 10/2011: pLAD rota BETHANIE and mLAD rota BETHANIE. 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 fall , hip fracture: -no cardiac contraindications (intermediate risk) to hip surgery. Eliquis can be held temporarily for surgery. pafib: -in sr here, cont lopressor, amio -was on eliquis at home, resume post op chronic diastolic chf: -stable vol status, cont po torsemide -echo unremarkable here cad - stable, no signs acs, no angina - cont statin, bb, ac htn: -cont bb hld: -cont statin
[2018-08-25] MEDS ORDERED: POLYETHYLENE GLYCOL 3350 119 GM BTL PO PRN (13:55)
[2018-08-25] MEDS ORDERED: MORPHINE SULFATE 2 MG/ML VIAL IVPUSH PRN ×2 (13:56)
--- NOTE | 2018-08-25 14:03 | PN ---
Physical Exam: SUBJECTIVE: Patient seen and examined, denies any hip pain currently. No chest pain, palpitations, dyspnea, dizziness, abdominal or urinary symptoms. OBJECTIVE: Vital Signs Period Temp Pulse Resp BP Sys/Padilla Pulse Ox Last 24 Hr 97.8 F-99.3 F 53-69 16-20 119-169/45-63 95-98 Intake & Output 08/22/18 08/23/18 08/24/18 08/25/18 23:59 23:59 23:59 23:59 Intake Total 700 Output Total 800 Balance -100 Weight 148 lb 11.2 oz GENERAL: sitting in bed in no acute distress Chest: decreased effort, no rales or wheezing CVS:S1S2 regular Abdomen:soft,NT, ND, pos bowel sounds Extremities: no pedal edema, pos pulses, limited ROM RLE Laboratory Results - last 24 hr 08/24/18 08/24/18 08/24/18 17:15 17:15 17:15 WBC 12.9 H RBC 4.03 Hgb 11.6 Hct 35.9 MCV 89.0 MCH 28.8 MCHC 32.4 RDW 14.6 Plt Count 241 MPV 8.7 Absolute Neuts (auto) 10.7 H Neutrophils % 83.4 H Lymphocytes % 9.4 D Monocytes % 5.7 Eosinophils % 1.0 Basophils % 0.5 Nucleated RBC % 0 PT with INR 20.70 H INR 1.74 H PTT (Actin FS) 32.8 Sodium 139 Potassium 3.7 Chloride 104 Carbon Dioxide 28 Anion Gap 8 BUN 36 H Creatinine 1.3 Est GFR (CKD-EPI)AfAm 43.93 Est GFR (CKD-EPI)NonAf 37.91 Random Glucose 119 H Calcium 8.8 Phosphorus Magnesium Total Bilirubin 0.5 AST 14 L ALT 16 Alkaline Phosphatase 117 Creatine Kinase 48 Troponin I < 0.02 Total Protein 6.9 Albumin 3.6 Blood Type Antibody Screen 08/24/18 08/25/18 08/25/18 17:15 09:15 09:15 WBC 12.9 H RBC 3.60 Hgb 10.3 L Hct 31.6 L MCV 87.8 MCH 28.7 MCHC 32.7 RDW 14.2 Plt Count 242 MPV 8.5 Absolute Neuts (auto) Neutrophils % Lymphocytes % Monocytes % Eosinophils % Basophils % Nucleated RBC % PT with INR INR PTT (Actin FS) Sodium 138 Potassium 3.9 Chloride 102 Carbon Dioxide 29 Anion Gap 7 L BUN 35 H Creatinine 1.2 Est GFR (CKD-EPI)AfAm 48.40 Est GFR (CKD-EPI)NonAf 41.76 Random Glucose 165 H Calcium 8.7 Phosphorus 4.2 Magnesium 2.4 Total Bilirubin AST ALT Alkaline Phosphatase Creatine Kinase Troponin I Total Protein Albumin Blood Type O NEGATIVE Antibody Screen Negative Active Medications Generic Name Dose Route Start Last Admin Trade Name Freq PRN Reason Stop Dose Admin Acetaminophen 650 mg 08/24/18 21:54 Tylenol - PO Q4H PRN PAIN LEVEL 1-5 Amiodarone HCl 100 mg 08/25/18 10:00 08/25/18 09:43 Cordarone - PO 100 mg DAILY [facility] Administration Docusate Sodium 100 mg 08/25/18 14:00 Colace - PO TID [facility] Methimazole 5 mg 08/25/18 10:00 08/25/18 09:44 Tapazole - PO 5 mg DAILY [facility] Administration Metoprolol Tartrate 50 mg 08/24/18 22:00 08/25/18 07:15 Lopressor - PO 50 mg TID [facility] Administration Morphine Sulfate 1 mg 08/25/18 13:56 Morphine Sulfate IVPUSH Q4H PRN PAIN LEVEL 6-10 Non-Formulary Medication 4 gm 08/24/18 20:47 Ipratropium/Albuterol Sulfate [Combivent Respimat 20-100 Mcg] IH TID PRN SHORT OF BREATH/WHEEZING Polyethylene Glycol 17 gm 08/25/18 13:55 Miralax (For Daily Use) - PO DAILY PRN CONSTIPATION Rosuvastatin Calcium 5 mg 08/24/18 22:00 08/24/18 22:55 Crestor - PO Not Given [facility] Senna 2 tab 08/25/18 22:00 Senna - PO [facility] Tiotropium [place] 1 puff 08/25/18 10:00 Spiriva Respimat IH DAILY [facility] Torsemide 20 mg 08/26/18 10:00 Demadex - PO Q2D@1000 [facility] Home Medications Medication Instructions Recorded Methimazole 5 mg PO Q2D 11/20/13 Apixaban [Eliquis] 5 mg PO BID 01/15/16 Amiodarone HCl 100 mg PO DAILY #30 tablet 07/20/17 Metoprolol Tartrate [Lopressor -] 50 mg PO TID 14 Days #42 tablet 07/20/17 Torsemide 20 mg PO DAILY 08/25/18 CT head/Right hip/pelvis/Right femur results reviewed ASSESSMENT/PLAN: 83 yof with PMHx of pafib, CAD s/p pRCA BETHANIE 09/2011 for unstable angina (CP/EDWARDS) and later BETHANIE to pLAD and mLAD 10/2011, HTN, HL, diastolic dysfunction, Mild AR /MR, mild pHTN, MGUS, COPD, IGT, gastritis/GERD, multinodular goiter, pancreatic cyst, kidney stones admitted with fall and right intertrochanteric fracture. 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 Ortho input noted, anticipate surgical intervention tomorrow if no concerns. Cardiology input noted. 2D echo noted. Continue amiodarone/metoprolol/statin. On Torsemide q48h currently, clinically euvolumic, continue. Continue methimazol DVTPPX lovenox, hold pre-op. Dispo anticipate SNF Wednesday post surgical intervention if no concerns. Plan discussed with patient, at bedside and nursing, all questions answered. Visit type - Emergency Visit Emergency Visit: Yes ED Registration Date: 08/24/18 Care time: The patient presented to the Emergency Department on the above date and was hospitalized for further evaluation of their emergent condition. - New Patient This patient is new to me today: Yes Date on this admission: 08/25/18 - Critical Care Critical Care patient: No - Discharge Referral Referred to [facility] Med P.C.: No
--- NOTE | 2018-08-25 14:19 | PN ---
Progress Note (short form) - Note Progress Note: ORTHOPEDIC SURGERY PROGRESS NOTE Department of Orthopedic Surgery SUBJECTIVE No acute events overnight. Resting comfortably in bed. No complaints currently. Denies chest pain, shortness of breath, or calf pain. No nausea or vomiting. Tolerating oral intake. Pain control difficult overnight, but improving. PHYSICAL EXAMINATION General: Alert, oriented, cooperative and no distress. Right Lower Extremity: Skin intact, no lesions, rashes or ulcers noted. Muscle mass equal and symmetric to contralateral side. No atrophy noted. No masses or effusions noted. No tenderness to palpation. Positive log roll and Positive SLR test. EHL/TA/GS motor intact; SILT distally; 2+ DP pulses; Cap refill brisk. DVT Exam: No evidence of DVT seen on physical exam; No cords or calf tenderness ; No significant calf/ankle edema. Intake & Output 08/23/18 08/24/18 08/25/18 23:59 23:59 23:59 Intake Total 850 Output Total 900 Balance -50 Intake: Oral 850 Output: Urine 900 Lucas 900 Other: Voiding Method Indwelling Catheter Bowel Movement No Weight 148 lb 11.2 oz Height 5 ft 3 in Body Mass Index (BMI) 26.3 Weight Measurement Method Est/Stated by Patient Active Medications Generic Name Dose Route Start Last Admin Trade Name Freq PRN Reason Stop Dose Admin Acetaminophen 650 mg 08/24/18 21:54 Tylenol - PO Q4H PRN PAIN LEVEL 1-5 Amiodarone HCl 100 mg 08/25/18 10:00 08/25/18 09:43 Cordarone - PO 100 mg DAILY RICKEY Administration Docusate Sodium 100 mg 08/25/18 14:00 Colace - PO TID RICKEY Methimazole 5 mg 08/25/18 10:00 08/25/18 09:44 Tapazole - PO 5 mg DAILY RICKEY Administration Metoprolol Tartrate 50 mg 08/24/18 22:00 08/25/18 07:15 Lopressor - PO 50 mg TID RICKEY Administration Morphine Sulfate 1 mg 08/25/18 13:56 Morphine Sulfate IVPUSH Q4H PRN PAIN LEVEL 6-10 Non-Formulary Medication 4 gm 08/24/18 20:47 Ipratropium/Albuterol Sulfate [Combivent Respimat 20-100 Mcg] IH TID PRN SHORT OF BREATH/WHEEZING Polyethylene Glycol 17 gm 08/25/18 13:55 Miralax (For Daily Use) - PO DAILY PRN CONSTIPATION Rosuvastatin Calcium 5 mg 08/24/18 22:00 08/24/18 22:55 Crestor - PO Not Given HS RICKEY Senna 2 tab 08/25/18 22:00 Senna - PO HS RICKEY Tiotropium [place] 1 puff 08/25/18 10:00 Spiriva Respimat IH DAILY RICKEY Torsemide 20 mg 08/26/18 10:00 Demadex - PO Q2D@1000 RICKEY Vital Signs (last) Temp Pulse Resp BP Pulse Ox 98.5 F 65 20 152/57 L 98 08/25/18 14:06 08/25/18 14:06 08/25/18 06:03 08/25/18 14:06 08/25/18 04:54 Laboratory (coagulation) PT with INR 20.70 SEC (9.7-13.0) H 08/24/18 17:15 Laboratory 08/25/18 09:15 08/25/18 09:15 ASSESSMENT AND PLAN Ms. Cartagena is an 83 year old female with a right basicervical femoral neck hip fracture. - Pain control: Transition to oral pain medications, minimize narcotic use - DVT prophylaxis ; Hold past midnight - NPO past midnight except meds - Follow up AM labs - Elevate HOB, encourage oral intake - Appreciate medical management (Nutrition optimization, decubitus precautions heel/sacrum); - Awaiting medical clearance - Cardiology optimization note appreciated - NWB RLE - Plan for surgery 08/26/18 AM; limited schedule availability in the OR this evening. - Risks and benefits of the procedure discussed with family last night and with granddaughter at bedside today. Please call my office with any questions: [phone].
[2018-08-25] MEDS: TIOTROPIUM BROMIDE 2.5 MCG (SPIRIVA) RESPIMAT INHALER IH SCH (14:26)
[2018-08-25] MEDS: DOCUSATE SODIUM 100 MG CAPSULE (FP) PO SCH ×2 (14:27→21:26)
[2018-08-25] MEDS: ROSUVASTATIN CA 5 MG TABLET (FP) PO SCH (21:25)
[2018-08-25] MEDS: SENNOSIDES 8.6MG TABLET (FP) PO SCH (21:25)
[2018-08-26] MEDS: DOCUSATE SODIUM 100 MG CAPSULE (FP) PO SCH ×3 (06:05→22:30)
[2018-08-26] MEDS: METOPROLOL TARTRATE 50 MG TABLET (FP) PO SCH ×3 (06:06→22:30)
[2018-08-26 07:34] LABS: BASO % 0.2 % (0-2.0); HEMATOCRIT 31.3 % (32.4-45.2); HEMOGLOBIN 10.4 GM/dL (10.7-15.3); LYMPH % 6.2 % (8-40); MCHC 33.1 g/dl (32.0-36.0); MEAN CELL VOLUME 87.5 fl (80-96); MEAN PLT VOLUME 8.3 fl (7.5-11.1); MONO % 6.7 % (3.8-10.2); NEUT % 86.9 % (42.8-82.8); PLATELET COUNT 230 K/MM3 (134-434); RBC 3.58 M/mm3 (3.60-5.2); RDW 14.4 % (11.6-15.6)
[2018-08-26 07:50] LABS: INR 1.29 (0.83-1.09); PROTHROMBIN TIME (PATIENT) 15.3 SEC (9.7-13.0)
[2018-08-26] MEDS ORDERED: PROPOFOL 20 ML ONE ×2 (08:02)
[2018-08-26] MEDS ORDERED: SUCCINYLCHOLINE CHLORIDE 200 MG/10 ML VIAL ONE (08:04)
[2018-08-26 08:06] LABS: CALCIUM 8.9 mg/dL (8.5-10.1); CREATININE 1.2 mg/dL (0.55-1.3); MAGNESIUM 2.6 mg/dL (1.8-2.4); PHOSPHOROUS 3.2 mg/dL (2.5-4.9); POTASSIUM 3.9 mmol/L (3.5-5.1)
[2018-08-26] MEDS ORDERED: ceFAZolin SODIUM 1 GM VIAL IVPB ONE (08:35)
[2018-08-26] MEDS ORDERED: DESFLURANE GAS 240 ML BOTTLE IH ONE (08:47)
[2018-08-26] MEDS ORDERED: ROCURONIUM BROMIDE 50 MG/5 ML VIAL ONE (09:08)
[2018-08-26] MEDS ORDERED: PT OWN MED DRAWER 7, Y5N ONE (09:38)
[2018-08-26] MEDS ORDERED: MIDAZOLAM HCL 2 MG/2 ML SINGLE DOSE VIAL ONE (09:40)
[2018-08-26] MEDS ORDERED: TORSEMIDE 20 MG TABLET (FP) PO SCH (10:00)
--- NOTE | 2018-08-26 10:05 | OPR ---
DATE OF PROCEDURE: 08/26/18 TITLE OF OPERATION: RIGHT cephalomedullary nail fixation (CPT 38912) PREOPERATIVE DIAGNOSIS: RIGHT basicervical femoral neck hip fracture POSTOPERATIVE DIAGNOSIS: RIGHT basicervical femoral neck hip fracture SURGEON: Dell Foster DO GUNITE NOZZLE OPERATOR: Kalpesh Posey DO ANESTHESIA: General anesthesia SPECIMEN: None PROSTHETIC DEVICE/IMPLANT: 125 degree x 180mm x 11mm [place] Gamma nail 10.5 x 90 mm lag screw 5 x 35 mm locking screw COMPLICATIONS: none EBL: 20 mL INDICATIONS FOR SURGERY: Ms. Cartagena is a 83 year old female who presented in the preoperative setting with a chief complaint of a right hip fracture after mechanical fall at home. Based on their pre-injury level of activity, surgical treatment was discussed with the patient, and her and daughter. The risks and benefits of surgery and anesthesia were discussed in detail including but not limited to pain, bleeding, infection, scarring, damage to vessels and nerves, fracture, blood clot, failure to obtain the desired result, failure to heal, failure to return to sport. Understanding the risks and benefits, Ms. Cartagena and her family opted to proceed with surgical management. SURGEON'S NARRATIVE: Ms. Cartgaena and her family were seen in the preoperative area. Their right side was marked for surgery and informed consent was reviewed and signed. Ms. Cartagena was then brought back to the operating room. She was transferred to the OR table. All bony prominences were well padded. A time-out was held and all team members agreed on the operative side and planned procedure. Anesthesia was then induced. Preoperative prophylactic antibiotics were indicated and 2 Grams Ancef were given prior to and within one hour of any incision. Sequential compression devices were placed on the contralateral extremity for the duration of the case as part of a comprehensive DVT prophylaxis protocol consisting of intraoperative SCDs, early postoperative mobilization and Lovenox for chemoprophylaxis. Under fluoroscopy, the fracture was reduced by traction and internal rotation with slight adduction. After reduction was achieved, the hip was prepped and draped in the usual sterile fashion with application of a shower curtain. A small incision was made over directly over the proximal aspect of the hip, centered over just proximal to the prominence of the tip of the greater trochanter. This was done using a 10 blade. It was carried through the skin and subcutaneous tissues. Further dissection was performed using the Madsen scissors. The guide pin for the Gamma Nail System was then inserted from the tip of the greater trochanter and into the proximal femoral canal. The opening reamer was then placed over the guidepin and used to make an opening in the proximal femur. The guidepin was then removed. A 125-degree x 11mm x 180mm gamma nail was selected. The Gamma Nail was inserted into the femoral canal into its appropriate position. Using the proximal targeting device, a 1.5-cm longitudinal incision was made directly over the lateral aspect of the proximal thigh using the 10 blade, with dissection using the hemostat to the lateral femur. A guidepin for the lag screw was then inserted from the lateral femur across the fracture site and into the femoral head and its appropriate position verified using C-arm guidance in both the AP and lateral planes. After pre-drilling, a 90-mm lag screw was then inserted over the guidepin and across the fracture site for definitive fixation. The guidepin was then removed. A set screw was then inserted into the top of the nail and completed turned, then turned back a half turn. The fracture site was appropriately compressed. The proximal targeting system was then removed. Attention was then turned to placing the distal screw. The guide was adjusted and using the 10 blade an incision was made directly over the lateral aspect of the thigh, with dissection using the hemostat to the lateral femur. A guidepin for the distal locking screw was then inserted from the lateral femur across the fracture site and into the femoral shaft and its appropriate position verified using C-arm guidance in both the AP and lateral planes. After pre- drilling, a 35-mm locking screw was then inserted over the guidepin and across the nail for definitive fixation. The guidepin was then removed. Appropriate position of the interlocking screws, the lag screw, the nail, and the fracture site was verified using C-arm guidance. Attention was then turned to closure. The incisions were copiously irrigated with sterile saline. Deep tissue was closed with 0 vicryl. Subcutaneous closure was achieved with 2-0 vicryl. Skin was closed with john, and aquacell dressing was applied. At closure, all needle counts and sponge counts were correct. The toes were warm and well-perfused at the end of the case. Because of pre-existing COPD and A-Fib, anesthesia pre-planned keeping the patient intubated and vented post procedure, therefore the patient was transported to the ICU from the OR with a plan to extubate later in the day. There was no complications immediately apparent. Dr. Posey served as first-assist on the case due to there being no qualified electrician's assistant or resident available. POSTOPERATIVE PLAN - Weight-bearing as tolerated - Physical therapy daily - Medical/ICU management - Pain control - Antibiotics for 24 hours post surgery - D/C Lucas within 24 hours post surgery unless medically necessary - Comprehensive DVT prophylaxis consists of intraoperative SCDs, early postoperative mobilization and Lovenox 40mg Qdaily starting POD #1 for chemoprophylaxis. - Follow up Post op Labs (CBC / BMP) - Follow up Post op X-ray right hip. Dell Foster DO
[2018-08-26] MEDS ORDERED: morphine CARPU-JECT 4 MG/1 ML DISP.SYRIN IVPUSH PRN (10:08)
[2018-08-26] MEDS ORDERED: LACTATED RINGERS SOLUTION 1,000 ML IV SCH ×2 (10:15→11:29)
[2018-08-26] MEDS ORDERED: PROPOFOL 1,000,000 MCG/100 ML VIAL IVPB SCH (10:15)
[2018-08-26] MEDS ORDERED: ALBUTEROL SO4 2.5/IPRATROPIUM 0.5 INH SOL 3 ML VIAL.NEB. NEB PRN (10:40)
[2018-08-26] MEDS ORDERED: methylPREDNISolone NA SUCC 40 MG/1 ML VIAL IVPB ONE (11:00)
--- NOTE | 2018-08-26 11:54 | CONSULT ---
Consultation: REQUESTING PROVIDER: Dr. Foster CONSULT REQUEST: We have been asked to medically evaluate this patient for delay of extubation due to underlying comorbidities. HISTORY OF PRESENT ILLNESS: Pt is an 87yo F with PMH of Afib (on Eliquis, Digoxin, Cardizem), COPD, CAD, HTN , HLD, Hypothyroidism presenting to ICU s/p Gamma Nail fixation of R hip for R basicervical femoral neck hip fracture. Patient went to the OR earlier this AM. No complications reported. Patient was given succinylcholine, rocuronium and propofol as per chart review. Patient was brought to ICU for monitoring respiratory status since patient was not immediately extubated after procedure due to underlying comorbidities. Anticoagulation was held. Patient is sedated and further information is unable to be obtained from her. REVIEW OF SYSTEMS: Unable to perform, patient was still sedated PHYSICAL EXAMINATION Vital Signs - 24 hr 08/25/18 08/25/18 08/25/18 14:06 21:00 22:59 Temperature 98.5 F 98.7 F Pulse Rate 65 80 Respiratory 20 20 Rate Blood Pressure 152/57 L 150/67 O2 Sat by Pulse 98 Oximetry (%) 08/26/18 08/26/18 08/26/18 02:22 05:29 07:44 Temperature 99.8 F H 99.3 F 99.1 F Pulse Rate 58 L 62 66 Respiratory 20 18 Rate Blood Pressure 140/50 L 150/58 L 165/75 O2 Sat by Pulse Oximetry (%) 08/26/18 08/26/18 08/26/18 10:00 10:15 10:30 Temperature 99.0 F 99.0 F 99.0 F Pulse Rate 51 L 59 L 57 L Respiratory 18 19 14 Rate Blood Pressure 167/47 L 184/53 H 188/54 H O2 Sat by Pulse 100 100 99 Oximetry (%) 08/26/18 08/26/18 08/26/18 10:35 10:45 10:50 Temperature 99.0 F 99.0 F Pulse Rate 68 70 71 Respiratory 14 22 H 17 Rate Blood Pressure 188/54 H 200/72 H 200/72 H O2 Sat by Pulse 99 Oximetry (%) 08/26/18 08/26/18 08/26/18 11:00 11:15 11:30 Temperature 97.8 F 97.8 F 97.8 F Pulse Rate 69 65 67 Respiratory 18 18 17 Rate Blood Pressure 198/97 H 197/60 H 190/59 H O2 Sat by Pulse 98 98 100 Oximetry (%) GENERAL: Sedated HEAD: Normal with no signs of trauma. EYES: Pupils equal, round and reactive to light, sclera anicteric, conjunctiva clear. No lid lag. LUNGS: Breath sounds equal, clear to auscultation bilaterally. No wheezes, and no crackles. Mechanically ventilated. HEART: Regular rate and rhythm, normal S1 and S2 without murmur, rub or gallop. ABDOMEN: Soft, nontender, not distended, normoactive bowel sounds, no guarding, no rebound, no masses. No hepatomegaly or splenomegaly. MUSCULOSKELETAL: S/p R hip fixation UPPER EXTREMITIES: 2+ pulses, warm, well-perfused. No cyanosis. No clubbing. Cap refill <2 seconds. No peripheral edema. LOWER EXTREMITIES: 2+ pulses, warm, well-perfused. No calf tenderness. No peripheral edema. NEUROLOGICAL: sedated SKIN: Warm, dry, normal turgor, no rashes or lesions noted. Laboratory Results - last 24 hr 08/25/18 08/26/18 08/26/18 21:27 05:35 07:00 WBC 15.0 H RBC 3.58 L Hgb 10.4 L Hct 31.3 L MCV 87.5 MCH 29.0 MCHC 33.1 RDW 14.4 Plt Count 230 MPV 8.3 Absolute Neuts (auto) 13.1 H Neutrophils % 86.9 H Lymphocytes % 6.2 L D Monocytes % 6.7 Eosinophils % 0.0 D Basophils % 0.2 Nucleated RBC % 0 PT with INR INR Sodium Potassium Chloride Carbon Dioxide Anion Gap BUN Creatinine Est GFR (CKD-EPI)AfAm Est GFR (CKD-EPI)NonAf POC Glucometer 157 166 Random Glucose Calcium Phosphorus Magnesium 08/26/18 08/26/18 08/26/18 07:00 07:00 11:35 WBC RBC Hgb Hct MCV MCH MCHC RDW Plt Count MPV Absolute Neuts (auto) Neutrophils % Lymphocytes % Monocytes % Eosinophils % Basophils % Nucleated RBC % PT with INR 15.30 H INR 1.29 H Sodium 137 Potassium 3.9 Chloride 100 Carbon Dioxide 28 Anion Gap 8 BUN 29 H Creatinine 1.2 Est GFR (CKD-EPI)AfAm 48.40 Est GFR (CKD-EPI)NonAf 41.76 POC Glucometer 184 Random Glucose 171 H Calcium 8.9 Phosphorus 3.2 Magnesium 2.6 H Active Medications Generic Name Dose Route Start Last Admin Trade Name Freq PRN Reason Stop Dose Admin Acetaminophen 650 mg 08/24/18 21:54 Tylenol - PO Q4H PRN PAIN LEVEL 1-5 Albuterol/Ipratropium 1 amp 08/26/18 10:40 Duoneb - NEB Q6H PRN SHORTNESS OF BREATH Amiodarone HCl 100 mg 08/25/18 10:00 08/25/18 09:43 Cordarone - PO 100 mg DAILY RICKEY Administration Docusate Sodium 100 mg 08/25/18 14:00 08/26/18 06:05 Colace - PO Not Given TID RICKEY Enoxaparin Sodium 40 mg 08/27/18 10:00 Lovenox - SQ DAILY RICKEY Propofol 1,000,000 mcg in 100 mls @ 2.023 mls/hr 08/26/18 10:15 Diprivan - IVPB TITR RICKEY Protocol 5 MCG/KG/MIN Cefazolin Sodium/Dextrose 2 gm in 50 mls @ 200 mls/hr 08/26/18 18:00 Ancef 2 Gm Premixed Ivpb - IVPB 08/27/18 02:14 Q8H-IV RICKEY Lactated Ringer's 1,000 mls @ 42 mls/hr 08/26/18 11:29 Lactated Ringers Solution IV ASDIR RICKEY Methimazole 5 mg 08/25/18 10:00 08/25/18 09:44 Tapazole - PO 5 mg DAILY RICKEY Administration Metoprolol Tartrate 50 mg 08/24/18 22:00 08/26/18 06:06 Lopressor - PO Not Given TID RICKEY Morphine Sulfate 1 mg 08/25/18 13:56 Morphine Sulfate IVPUSH Q4H PRN PAIN LEVEL 6-10 Morphine Sulfate 4 mg 08/26/18 10:08 Morphine Injection - IVPUSH 08/27/18 10:07 Q4H PRN PAIN LEVEL 1-5 Non-Formulary Medication 4 gm 08/24/18 20:47 Ipratropium/Albuterol Sulfate [Combivent Respimat 20-100 Mcg] IH TID PRN SHORT OF BREATH/WHEEZING Polyethylene Glycol 17 gm 08/25/18 13:55 Miralax (For Daily Use) - PO DAILY PRN CONSTIPATION Rosuvastatin Calcium 5 mg 08/24/18 22:00 08/25/18 21:25 Crestor - PO 5 mg HS RICKEY Administration Senna 2 tab 08/25/18 22:00 08/25/18 21:25 Senna - PO 2 tab HS RICKEY Administration Tiotropium [place] 1 puff 08/25/18 10:00 08/25/18 14:26 Spiriva Respimat IH Not Given DAILY RICKEY Torsemide 20 mg 08/26/18 10:00 Demadex - PO Q2D@1000 RICKEY ASSESSMENT/PLAN: Pt is an 87yo F with PMH of Afib (on Eliquis, Digoxin, Cardizem), COPD, CAD, HTN , HLD, Hypothyroidism presenting to ICU s/p Gamma Nail fixation of R hip for R basicervical femoral neck hip fracture for monitoring respiratory status since patient was not immediately extubated after procedure due to underlying comorbidities. NEURO -Sedated, not currently on drip -Will keep off of sedation for now PULM -History of COPD -Intubated, plan on extubation -Medrol 60mg, Q6H Duonebs -Wean off of vent -Home meds to resume once tolerating -SpO2 >90% CARDIO/VASC -History of Afib, CAD, HTN, HLD -Holding AC for now, will resume tomorrow -MAP >65 -Home meds upon waking -Cardiology consulting MSK -S/p R hip Gamma Nail fixation -PT as tolerated, WBAT -Morphine q4H prn HEME/ONC -On AC due to Afib -Holding off on AC for now GI -No active issues RENAL -No active issues ENDO -History of hypothyroidism, -Resume home meds once tolerating po ID -Given 2g Ancef preop -WBC elevated, likely reactive -Afebrile -Will monitor FEN -NPO if still intubated -PO diet once tolerating PPx -SCD's -Resume AC tomorrow Dispo: We will continue to follow the patient. Thank you for this consultative opportunity. Visit type - Emergency Visit Emergency Visit: Yes ED Registration Date: 08/24/18 Care time: The patient presented to the Emergency Department on the above date and was hospitalized for further evaluation of their emergent condition. - New Patient This patient is new to me today: Yes Date on this admission: 08/26/18 - Critical Care Critical Care patient: Yes Total Critical Care Time (in minutes): 35 Critical Care Statement: The care of this patient involved high complexity decision making to prevent further life threatening deterioration of the patient 's condition and/or to evaluate & treat vital organ system(s) failure or risk of failure.
[2018-08-26] MEDS: TIOTROPIUM BROMIDE 2.5 MCG (SPIRIVA) RESPIMAT INHALER IH SCH (12:01)
--- NOTE | 2018-08-26 12:23 | PN ---
Teaching Attending Note Name of Resident: Monika Verma ATTENDING PHYSICIAN STATEMENT I saw and evaluated the patient. I reviewed the resident's note and discussed the case with the resident. I agree with the resident's findings and plan as documented. SUBJECTIVE: Patient seen and examined in the ICU. POD #0 from a right hip gamma nail. Intubated and sedated. No Pressors. Was not extubated post-operatively due to significant COPD history. Intake & Output 08/23/18 08/24/18 08/25/18 08/26/18 23:59 23:59 23:59 23:59 Intake Total 1300 1300 Output Total 1100 640 Balance 200 660 Weight 148 lb 11.2 oz Last Vital Signs Temp Pulse Resp BP Pulse Ox 97.8 F 65 18 183/63 H 100 08/26/18 11:45 08/26/18 11:45 08/26/18 11:45 08/26/18 11:45 08/26/18 11:45 Active Medications Acetaminophen (Tylenol -) 650 mg PO Q4H PRN PRN Reason: PAIN LEVEL 1-5 Albuterol/Ipratropium (Duoneb -) 1 amp NEB Q6H PRN PRN Reason: SHORTNESS OF BREATH Amiodarone HCl (Cordarone -) 100 mg PO DAILY [facility] Last Admin: 08/25/18 09:43 Dose: 100 mg Docusate Sodium (Colace -) 100 mg PO TID [facility] Last Admin: 08/26/18 06:05 Dose: Not Given Enoxaparin Sodium (Lovenox -) 40 mg SQ DAILY [facility] Propofol (Diprivan -) 1,000,000 mcg in 100 mls @ 2.023 mls/hr IVPB TITR RICKEY; Protocol Last Admin: 08/26/18 12:00 Dose: Not Given Cefazolin Sodium/Dextrose (Ancef 2 Gm Premixed Ivpb -) 2 gm in 50 mls @ 200 mls /hr IVPB Q8H-IV RICKEY Stop: 08/27/18 02:14 Lactated Ringer's (Lactated Ringers Solution) 1,000 mls @ 42 mls/hr IV ASDIR [facility] Methimazole (Tapazole -) 5 mg PO DAILY [facility] Last Admin: 08/25/18 09:44 Dose: 5 mg Metoprolol Tartrate (Lopressor -) 50 mg PO TID [facility] Last Admin: 08/26/18 06:06 Dose: Not Given Morphine Sulfate (Morphine Sulfate) 1 mg IVPUSH Q4H PRN PRN Reason: PAIN LEVEL 6-10 Morphine Sulfate (Morphine Injection -) 4 mg IVPUSH Q4H PRN PRN Reason: PAIN LEVEL 1-5 Stop: 08/27/18 10:07 Non-Formulary Medication (Ipratropium/Albuterol Sulfate [Combivent Respimat 20- 100 Mcg]) 4 gm IH TID PRN PRN Reason: SHORT OF BREATH/WHEEZING Polyethylene Glycol (Miralax (For Daily Use) -) 17 gm PO DAILY PRN PRN Reason: CONSTIPATION Rosuvastatin Calcium (Crestor -) 5 mg PO HS [facility] Last Admin: 08/25/18 21:25 Dose: 5 mg Senna (Senna -) 2 tab PO [facility] Last Admin: 08/25/18 21:25 Dose: 2 tab Tiotropium [place] (Spiriva Respimat) 1 puff IH DAILY [facility] Last Admin: 08/26/18 12:01 Dose: Not Given Torsemide (Demadex -) 20 mg PO Q2D@1000 RICKEY GENERAL: Intubated and sedated HEAD: Normal with no signs of trauma. EYES: Pupils equal, extraocular movements intact, sclera anicteric, conjunctiva clear. No lid lag. EARS, NOSE, THROAT: Ears normal, nares patent, oropharynx clear without exudates. Moist mucous membranes. NECK: Normal range of motion, supple without lymphadenopathy, JVD, or masses. LUNGS: Vented, diminished at the bases. No wheezes or crackles. HEART: Regular rate and rhythm, normal S1 and S2 without murmur, rub or gallop. ABDOMEN: Soft, nontender, not distended, normoactive bowel sounds, no guarding, no rebound, no masses. No hepatomegaly or splenomegaly. MUSCULOSKELETAL: Normal range of motion at all joints. No bony deformities or tenderness. No CVA tenderness. UPPER EXTREMITIES: 2+ pulses, warm, well-perfused. No cyanosis. No clubbing. Cap refill <2 seconds. No peripheral edema. LOWER EXTREMITIES: 2+ pulses, warm, well-perfused. No calf tenderness. No peripheral edema. NEUROLOGICAL: Sedated, arousable, non-focal PSYCHIATRIC: sedated SKIN: Warm, dry, normal turgor, no rashes or lesions noted. Laboratory Results - last 24 hr 08/25/18 08/26/18 08/26/18 21:27 05:35 07:00 WBC 15.0 H RBC 3.58 L Hgb 10.4 L Hct 31.3 L MCV 87.5 MCH 29.0 MCHC 33.1 RDW 14.4 Plt Count 230 MPV 8.3 Absolute Neuts (auto) 13.1 H Neutrophils % 86.9 H Lymphocytes % 6.2 L D Monocytes % 6.7 Eosinophils % 0.0 D Basophils % 0.2 Nucleated RBC % 0 PT with INR INR Sodium Potassium Chloride Carbon Dioxide Anion Gap BUN Creatinine Est GFR (CKD-EPI)AfAm Est GFR (CKD-EPI)NonAf POC Glucometer 157 166 Random Glucose Calcium Phosphorus Magnesium 08/26/18 08/26/18 08/26/18 07:00 07:00 11:35 WBC RBC Hgb Hct MCV MCH MCHC RDW Plt Count MPV Absolute Neuts (auto) Neutrophils % Lymphocytes % Monocytes % Eosinophils % Basophils % Nucleated RBC % PT with INR 15.30 H INR 1.29 H Sodium 137 Potassium 3.9 Chloride 100 Carbon Dioxide 28 Anion Gap 8 BUN 29 H Creatinine 1.2 Est GFR (CKD-EPI)AfAm 48.40 Est GFR (CKD-EPI)NonAf 41.76 POC Glucometer 184 Random Glucose 171 H Calcium 8.9 Phosphorus 3.2 Magnesium 2.6 H ASSESSMENT/PLAN: Acute Respiratory Insufficiency P AFib CAD S/P pRCA BETHANIE 09/2011 for unstable angina S/P BETHANIE to pLAD and mLAD 10/2011 HTN HPL Diastolic dysfunction 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
--- NOTE | 2018-08-26 14:51 | PN ---
Progress Note (short form) - Note Progress Note: s: lethargic 2/2 anesthesia from OR, hip surgery went well, now extubated o: Vital Signs Period Temp Pulse Resp BP Sys/Padilla Pulse Ox Last 24 Hr 97.8 F-99.8 F 51-80 14-27 140-200/47-97 98-100 NAD, no jvd rrr s1s2 no mrg cta bl no le e/c/c abd nt nd pos bs no jaundice diaphoresis pos dp pt Current Medications Generic Name Dose Route Start Last Admin Trade Name Freq PRN Reason Stop Dose Admin Acetaminophen 650 mg 08/24/18 21:54 Tylenol - PO Q4H PRN PAIN LEVEL 1-5 Albuterol/Ipratropium 1 amp 08/26/18 10:40 Duoneb - NEB Q6H PRN SHORTNESS OF BREATH Amiodarone HCl 100 mg 08/25/18 10:00 08/25/18 09:43 Cordarone - PO 100 mg DAILY [facility] Administration Docusate Sodium 100 mg 08/25/18 14:00 08/26/18 14:28 Colace - PO 100 mg TID [facility] Administration Enoxaparin Sodium 40 mg 08/27/18 10:00 Lovenox - SQ DAILY [facility] Propofol 1,000,000 mcg in 100 mls @ 2.023 mls/hr 08/26/18 10:15 08/26/18 12: 00 Diprivan - IVPB Not Given TITR [facility] Protocol 5 MCG/KG/MIN Cefazolin Sodium/Dextrose 2 gm in 50 mls @ 200 mls/hr 08/26/18 18:00 Ancef 2 Gm Premixed Ivpb - IVPB 08/27/18 02:14 Q8H-IV [facility]KEY Lactated Ringer's 1,000 mls @ 42 mls/hr 08/26/18 11:29 Lactated Ringers Solution IV ASDIR [facility] Methimazole 5 mg 08/25/18 10:00 08/25/18 09:44 Tapazole - PO 5 mg DAILY [facility] Administration Metoprolol Tartrate 50 mg 08/24/18 22:00 08/26/18 14:27 Lopressor - PO 50 mg TID [facility] Administration Morphine Sulfate 1 mg 08/25/18 13:56 Morphine Sulfate IVPUSH Q4H PRN PAIN LEVEL 6-10 Morphine Sulfate 4 mg 08/26/18 10:08 Morphine Injection - IVPUSH 08/27/18 10:07 Q4H PRN PAIN LEVEL 1-5 Non-Formulary Medication 4 gm 08/24/18 20:47 Ipratropium/Albuterol Sulfate [Combivent Respimat 20-100 Mcg] IH TID PRN SHORT OF BREATH/WHEEZING Polyethylene Glycol 17 gm 08/25/18 13:55 Miralax (For Daily Use) - PO DAILY PRN CONSTIPATION Rosuvastatin Calcium 5 mg 08/24/18 22:00 08/25/18 21:25 Crestor - PO 5 mg HS RICKEY Administration Senna 2 tab 08/25/18 22:00 08/25/18 21:25 Senna - PO 2 tab HS RICKEY Administration Tiotropium [place] 1 puff 08/25/18 10:00 08/26/18 12:01 Spiriva Respimat IH Not Given DAILY [facility] Torsemide 20 mg 08/26/18 10:00 Demadex - PO Q2D@1000 [facility] CBC, BMP 08/26/18 07:00 08/26/18 07:00 tele: sr, artifact ecg: sr nl intervals no ischemic changes echo 08/2018: nl lv/rv, lae, mod tr, mild phtn echo 07/2017: mild-mod decreased sys fn. EF may be underestimated due to afib rhythm. Nl rv size/fn. 1+ lae. mild-mod mr/tr. Echo 08/2015: Nl lv/rv. EF 65-70%. E to A reversal. Mild Lae. 1+ AR/MR. No RVSP Cath/PCI 09/2011: pRCA 80-90% -->BETHANIE, mLAD 60-70%, dLAD 60-70% + FFR, D1 mild diffuse disease Cath/PCI 10/2011: pLAD rota BETHANIE and mLAD rota BETHANIE. 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 fall , hip fracture: -s/p surgery 08/26. resume AC when ok by ortho. pafib: -in sr here, cont lopressor, amio -was on eliquis at home, resume post op chronic diastolic chf: -stable vol status, cont po torsemide -echo unremarkable here cad - stable, no signs acs, no angina - cont statin, bb, ac htn: -cont bb hld: -cont statin
[2018-08-26] MEDS: AMIODARONE HCL 200 MG TABLET (FP) PO SCH (16:00)
[2018-08-26] MEDS: METHIMAZOLE 5 MG TABLET (FP) PO SCH (16:00)
--- NOTE | 2018-08-26 16:40 | PN ---
Physical Exam: SUBJECTIVE: Patient seen and examined, intubated, awake, unable to assess for ROS. OBJECTIVE: Vital Signs Period Temp Pulse Resp BP Sys/Padilla Pulse Ox Last 24 Hr 97.8 F-99.8 F 51-80 14-27 140-200/47-97 98-100 Intake & Output 08/23/18 08/24/18 08/25/18 08/26/18 23:59 23:59 23:59 23:59 Intake Total 1300 1300 Output Total 1100 990 Balance 200 310 Weight 148 lb 11.2 oz GENERAL: intubated, awake in bed, no acute distress Chest: decreased air entry all over, no rales or wheezing appreciated Abdomen:soft, obese, NT Extremities: right thigh dressing clean, no RLE edema, positive pulses Neck: soft, supple HEENT: PERRL, EOMI Laboratory Results - last 24 hr 08/25/18 08/26/18 08/26/18 21:27 05:35 07:00 WBC 15.0 H RBC 3.58 L Hgb 10.4 L Hct 31.3 L MCV 87.5 MCH 29.0 MCHC 33.1 RDW 14.4 Plt Count 230 MPV 8.3 Absolute Neuts (auto) 13.1 H Neutrophils % 86.9 H Lymphocytes % 6.2 L D Monocytes % 6.7 Eosinophils % 0.0 D Basophils % 0.2 Nucleated RBC % 0 PT with INR INR Sodium Potassium Chloride Carbon Dioxide Anion Gap BUN Creatinine Est GFR (CKD-EPI)AfAm Est GFR (CKD-EPI)NonAf POC Glucometer 157 166 Random Glucose Calcium Phosphorus Magnesium 08/26/18 08/26/18 08/26/18 07:00 07:00 11:35 WBC RBC Hgb Hct MCV MCH MCHC RDW Plt Count MPV Absolute Neuts (auto) Neutrophils % Lymphocytes % Monocytes % Eosinophils % Basophils % Nucleated RBC % PT with INR 15.30 H INR 1.29 H Sodium 137 Potassium 3.9 Chloride 100 Carbon Dioxide 28 Anion Gap 8 BUN 29 H Creatinine 1.2 Est GFR (CKD-EPI)AfAm 48.40 Est GFR (CKD-EPI)NonAf 41.76 POC Glucometer 184 Random Glucose 171 H Calcium 8.9 Phosphorus 3.2 Magnesium 2.6 H Active Medications Generic Name Dose Route Start Last Admin Trade Name Freq PRN Reason Stop Dose Admin Acetaminophen 650 mg 08/24/18 21:54 Tylenol - PO Q4H PRN PAIN LEVEL 1-5 Albuterol/Ipratropium 1 amp 08/26/18 10:40 Duoneb - NEB Q6H PRN SHORTNESS OF BREATH Amiodarone HCl 100 mg 08/25/18 10:00 08/26/18 16:00 Cordarone - PO Not Given DAILY [facility] Docusate Sodium 100 mg 08/25/18 14:00 08/26/18 14:28 Colace - PO 100 mg TID [facility] Administration Enoxaparin Sodium 40 mg 08/27/18 10:00 Lovenox - SQ DAILY [facility] Propofol 1,000,000 mcg in 100 mls @ 2.023 mls/hr 08/26/18 10:15 08/26/18 12: 00 Diprivan - IVPB Not Given TITR [facility] Protocol 5 MCG/KG/MIN Cefazolin Sodium/Dextrose 2 gm in 50 mls @ 200 mls/hr 08/26/18 18:00 Ancef 2 Gm Premixed Ivpb - IVPB 08/27/18 02:14 Q8H-IV [facility] Lactated Ringer's 1,000 mls @ 42 mls/hr 08/26/18 11:29 Lactated Ringers Solution IV ASDIR [facility] Methimazole 5 mg 08/25/18 10:00 08/26/18 16:00 Tapazole - PO Not Given DAILY [facility] Metoprolol Tartrate 50 mg 08/24/18 22:00 08/26/18 14:27 Lopressor - PO 50 mg TID [facility] Administration Morphine Sulfate 1 mg 08/25/18 13:56 Morphine Sulfate IVPUSH Q4H PRN PAIN LEVEL 6-10 Morphine Sulfate 4 mg 08/26/18 10:08 Morphine Injection - IVPUSH 08/27/18 10:07 Q4H PRN PAIN LEVEL 1-5 Non-Formulary Medication 4 gm 08/24/18 20:47 Ipratropium/Albuterol Sulfate [Combivent Respimat 20-100 Mcg] IH TID PRN SHORT OF BREATH/WHEEZING Polyethylene Glycol 17 gm 08/25/18 13:55 Miralax (For Daily Use) - PO DAILY PRN CONSTIPATION Rosuvastatin Calcium 5 mg 08/24/18 22:00 08/25/18 21:25 Crestor - PO 5 mg HS RICKEY Administration Senna 2 tab 08/25/18 22:00 08/25/18 21:25 Senna - PO 2 tab HS RICKEY Administration Tiotropium [place] 1 puff 08/25/18 10:00 08/26/18 12:01 Spiriva Respimat IH Not Given DAILY [facility] Home Medications Medication Instructions Recorded Methimazole 5 mg PO Q2D 11/20/13 Apixaban [Eliquis] 5 mg PO BID 01/15/16 Amiodarone HCl 100 mg PO DAILY #30 tablet 07/20/17 Metoprolol Tartrate [Lopressor -] 50 mg PO TID 14 Days #42 tablet 07/20/17 Torsemide 20 mg PO DAILY 08/25/18 ASSESSMENT/PLAN: 83 yof with PMHx of pafib, CAD s/p pRCA BETHANIE 09/2011 for unstable angina (CP/EDWARDS) and later BETHANIE to pLAD and mLAD 10/2011, HTN, HL, diastolic dysfunction, 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 -Mechanical Fall -Acute traumatic right intertrochanteric hip fracture s/p right cephalomedullary nail fixation -Post operative acute respiratory insufficiency -PAF on eliquis -CAD s/p pRCA BETHANIE 09/2011 and later BETHANIE to pLAD/mLAD 10/2011 -Diastolic dysfunction -HTN -HLD -Mild AR/MR -Mild pulmonary HTN -MGUS -Pulmonary HTN -COPD -IGT -Gastritis/GERD -Multinodular goiter Plan: S/p solumedrol in ICU. patient now off sedation, extubated. Monitor respiratory status. Pain control with morphine/tylenol. Resume po as tolerated. Resume eliquis per orthopedic, on lovenox currently. Bowel regimen. Incentive spirometry. Cardiology input noted. 2D echo noted. Continue amiodarone/metoprolol/statin. Gentle hydration, hold torsemide for now. Continue methimazole DVTPPXper orthopedic. PT eval in 24 hours if respiratory status stable Dispo anticipate d/c to SNF in 24-48 hours if doing well and no new concerns. Plan discussed with nursing, care co-ordinated with ICU team. Total critical care time spent 37 min. Visit type - Emergency Visit Emergency Visit: Yes ED Registration Date: 08/24/18 Care time: The patient presented to the Emergency Department on the above date and was hospitalized for further evaluation of their emergent condition. - New Patient This patient is new to me today: No - Critical Care Critical Care patient: Yes Total Critical Care Time (in minutes): 37 Critical Care Statement: The care of this patient involved high complexity decision making to prevent further life threatening deterioration of the patient 's condition and/or to evaluate & treat vital organ system(s) failure or risk of failure.
[2018-08-26] MEDS: CEFAZOLIN 2 GM/D5W 2 GM/50 ML ML IVPB SCH (17:41)
[2018-08-26] MEDS: SENNOSIDES 8.6MG TABLET (FP) PO SCH (22:30)
[2018-08-26] MEDS: ROSUVASTATIN CA 5 MG TABLET (FP) PO SCH (23:59)
[2018-08-27] MEDS: CEFAZOLIN 2 GM/D5W 2 GM/50 ML ML IVPB SCH (02:35)
[2018-08-27] MEDS: METOPROLOL TARTRATE 50 MG TABLET (FP) PO SCH ×3 (05:47→21:07)
[2018-08-27] MEDS: DOCUSATE SODIUM 100 MG CAPSULE (FP) PO SCH ×3 (05:47→21:07)
[2018-08-27 06:26] LABS: HEMATOCRIT 26.9 % (32.4-45.2); HEMOGLOBIN 8.9 GM/dL (10.7-15.3); MCH 29.1 pg (25.7-33.7); MEAN CELL VOLUME 88.2 fl (80-96); MEAN PLT VOLUME 8.8 fl (7.5-11.1); PLATELET COUNT 199 K/MM3 (134-434); RBC 3.05 M/mm3 (3.60-5.2); RDW 14.2 % (11.6-15.6); WHITE BLOOD COUNT 14.3 K/mm3 (4.0-10.0)
[2018-08-27 07:18] LABS: ALBUMIN 2.3 g/dl (3.4-5.0); BILIRUBIN,TOTAL 0.4 mg/dL (0.2-1); CALCIUM 8.2 mg/dL (8.5-10.1); CREATININE 1.2 mg/dL (0.55-1.3); MAGNESIUM 2.5 mg/dL (1.8-2.4); PHOSPHOROUS 3.3 mg/dL (2.5-4.9); POTASSIUM 3.8 mmol/L (3.5-5.1); TOT PROT 5.3 g/dl (6.4-8.2)
--- NOTE | 2018-08-27 08:14 | PN ---
Physical Exam: SUBJECTIVE: Patient seen and examined at bedside. Patient continued to have HR in the 50s, mentating well. Beta blockers held. No acute events overnight. Patient states she feels fine, denies pain. OBJECTIVE: Vital Signs Period Temp Pulse Resp BP Sys/Padilla Pulse Ox Last 24 Hr 97.8 F-99.0 F 44-76 14-27 115-200/37-97 98-100 GENERAL: The patient is awake, alert, and fully oriented, in no acute distress. EYES: PERRL, extraocular movements intact, sclera anicteric, conjunctiva clear. No ptosis. LUNGS: Breath sounds equal, clear to auscultation bilaterally, no wheezes, no crackles, no accessory muscle use. HEART: Regular rate and rhythm, S1, S2 without murmur, rub or gallop. ABDOMEN: Soft, nontender, nondistended, normoactive bowel sounds, no guarding, no rebound, no hepatosplenomegaly, no masses. EXTREMITIES: 2+ pulses, warm, well-perfused, no edema. Clean surgical site NEUROLOGICAL: Cranial nerves II through XII grossly intact. Normal speech, gait not observed. PSYCH: Normal mood, normal affect. SKIN: Warm, dry, normal turgor, no rashes or lesions noted Laboratory Results - last 24 hr 08/26/18 08/26/18 08/27/18 11:35 17:12 00:28 WBC RBC Hgb Hct MCV MCH MCHC RDW Plt Count MPV Sodium Potassium Chloride Carbon Dioxide Anion Gap BUN Creatinine Est GFR (CKD-EPI)AfAm Est GFR (CKD-EPI)NonAf POC Glucometer 184 190 203 Random Glucose Calcium Phosphorus Magnesium Total Bilirubin AST ALT Alkaline Phosphatase Creatine Kinase Creatine Kinase Index CK-MB (CK-2) Troponin I Total Protein Albumin 08/27/18 08/27/18 08/27/18 05:30 05:30 05:30 WBC 14.3 H RBC 3.05 L Hgb 8.9 L Hct 26.9 L MCV 88.2 MCH 29.1 MCHC 33.0 RDW 14.2 Plt Count 199 MPV 8.8 Sodium 137 Potassium 3.8 Chloride 101 Carbon Dioxide 32 Anion Gap 4 L BUN 31 H Creatinine 1.2 Est GFR (CKD-EPI)AfAm 48.40 Est GFR (CKD-EPI)NonAf 41.76 POC Glucometer Random Glucose 165 H Calcium 8.2 L Phosphorus 3.3 Magnesium 2.5 H Total Bilirubin 0.4 AST 34 ALT 18 Alkaline Phosphatase 67 Creatine Kinase 472 H Creatine Kinase Index 0.4 CK-MB (CK-2) 1.9 Troponin I 0.02 Total Protein 5.3 L Albumin 2.3 L 08/27/18 06:37 WBC RBC Hgb Hct MCV MCH MCHC RDW Plt Count MPV Sodium Potassium Chloride Carbon Dioxide Anion Gap BUN Creatinine Est GFR (CKD-EPI)AfAm Est GFR (CKD-EPI)NonAf POC Glucometer 174 Random Glucose Calcium Phosphorus Magnesium Total Bilirubin AST ALT Alkaline Phosphatase Creatine Kinase Creatine Kinase Index CK-MB (CK-2) Troponin I Total Protein Albumin Active Medications Generic Name Dose Route Start Last Admin Trade Name Freq PRN Reason Stop Dose Admin Acetaminophen 650 mg 08/24/18 21:54 Tylenol - PO Q4H PRN PAIN LEVEL 1-5 Albuterol/Ipratropium 1 amp 08/26/18 10:40 Duoneb - NEB Q6H PRN SHORTNESS OF BREATH Amiodarone HCl 100 mg 08/25/18 10:00 08/26/18 16:00 Cordarone - PO Not Given DAILY [facility] Docusate Sodium 100 mg 08/25/18 14:00 08/27/18 05:47 Colace - PO 100 mg TID [facility] Administration Enoxaparin Sodium 40 mg 08/27/18 10:00 Lovenox - SQ DAILY [facility] Propofol 1,000,000 mcg in 100 mls @ 2.023 mls/hr 08/26/18 10:15 08/26/18 12: 00 Diprivan - IVPB Not Given TITR [facility] Protocol 5 MCG/KG/MIN Lactated Ringer's 1,000 mls @ 42 mls/hr 08/26/18 11:29 08/26/18 18:45 Lactated Ringers Solution IV 42 mls/hr ASDIR [facility] Administration Methimazole 5 mg 08/25/18 10:00 08/26/18 16:00 Tapazole - PO Not Given DAILY [facility] Metoprolol Tartrate 50 mg 08/24/18 22:00 08/27/18 05:47 Lopressor - PO Not Given TID [facility] Morphine Sulfate 1 mg 08/25/18 13:56 Morphine Sulfate IVPUSH Q4H PRN PAIN LEVEL 6-10 Morphine Sulfate 4 mg 08/26/18 10:08 Morphine Injection - IVPUSH 08/27/18 10:07 Q4H PRN PAIN LEVEL 1-5 Non-Formulary Medication 4 gm 08/24/18 20:47 Ipratropium/Albuterol Sulfate [Combivent Respimat 20-100 Mcg] IH TID PRN SHORT OF BREATH/WHEEZING Polyethylene Glycol 17 gm 08/25/18 13:55 Miralax (For Daily Use) - PO DAILY PRN CONSTIPATION Rosuvastatin Calcium 5 mg 08/24/18 22:00 08/26/18 23:59 Crestor - PO 5 mg HS [facility]KEY Administration Senna 2 tab 08/25/18 22:00 08/26/18 22:30 Senna - PO 2 tab HS [facility]KEY Administration Tiotropium [place] 1 puff 08/25/18 10:00 08/26/18 12:01 Spiriva Respimat IH Not Given DAILY [facility] ASSESSMENT/PLAN: Pt is an 87yo F with PMH of Afib (on Eliquis, Digoxin, Cardizem), COPD, CAD, HTN , HLD, Hypothyroidism presenting to ICU s/p Gamma Nail fixation of R hip for R basicervical femoral neck hip fracture for monitoring respiratory status since patient was not immediately extubated after procedure due to underlying comorbidities. NEURO -Off of sedation -No deficits PULM -History of COPD -Extubated yesterday, saturating well on 2L NC -Wean off NC -Q6H Duonebs -Home meds to resume -SpO2 >90% CARDIO/VASC -History of Afib, CAD, HTN, HLD -Resume AC; hold if hgb continues to decline -Not on pressors -Home meds upon waking, hold beta blockers -Cardiology consulting [facility] -S/p R hip Gamma Nail fixation -PT as tolerated, WBAT -Morphine q4H prn HEME/ONC -On AC due to Afib -Resuming AC; hold if hgb continues to decline -Hgb dropping 8.9 today, will check stool for occult blood and rpt cbc -Not a candidate for transfusion at this time -Acute blood loss: at surgical site v. GI v. hemolysis -No hematoma, bruising or decreased pulses in lower extremities -WBC elevated; likely 2/2 steroid use -Platelet count normal GI -Hgb dropping, will check stool for occult blood ENDO -History of hypothyroidism, -Resume home meds once tolerating po ID -Given 2g Ancef preop -WBC elevated, likely reactive and 2/2 steroids given yesterday -Afebrile -Will monitor FEN -Regular diet PPx -SCD's -Resume AC Dispo: Stable for transfer to tele Visit type - Emergency Visit Emergency Visit: Yes ED Registration Date: 08/24/18 Care time: The patient presented to the Emergency Department on the above date and was hospitalized for further evaluation of their emergent condition. - New Patient This patient is new to me today: No - Critical Care Critical Care patient: Yes Total Critical Care Time (in minutes): 35 Critical Care Statement: The care of this patient involved high complexity decision making to prevent further life threatening deterioration of the patient 's condition and/or to evaluate & treat vital organ system(s) failure or risk of failure.
[2018-08-27] MEDS ORDERED: PT OWN MED DRAWER 7, Y5N ONE ×3 (09:18→12:48)
[2018-08-27] MEDS: AMIODARONE HCL 200 MG TABLET (FP) PO SCH (09:23)
[2018-08-27] MEDS: METHIMAZOLE 5 MG TABLET (FP) PO SCH (09:23)
--- NOTE | 2018-08-27 09:48 | PN ---
Physical Exam: SUBJECTIVE: Patient seen and examined, denies any pain, dyspnea or concerns. No complaints currently. OBJECTIVE: Vital Signs Period Temp Pulse Resp BP Sys/Padilla Pulse Ox Last 24 Hr 97.8 F-99.0 F 44-76 14-27 115-200/37-97 98-100 Intake & Output 08/24/18 08/25/18 08/26/18 08/27/18 23:59 23:59 23:59 23:59 Intake Total 1300 1976 Output Total 1100 1110 Balance 200 866 Weight 148 lb 11.2 oz GENERAL: lying in bed, no acute distress NecK: soft, supple, no JVD Chest: poor effort, pos air entry, limited exam Abdomen:Soft, obese, NT, no CVA or suprapubic or CVA tenderness Extremities: right thigh dressing clean, no hematoma/swelling or discharge, pos palpable DP pulses CVS:S1S2 regular currently Psych; Awake, co-operative Laboratory Results - last 24 hr 08/26/18 08/26/18 08/27/18 11:35 17:12 00:28 WBC RBC Hgb Hct MCV MCH MCHC RDW Plt Count MPV Sodium Potassium Chloride Carbon Dioxide Anion Gap BUN Creatinine Est GFR (CKD-EPI)AfAm Est GFR (CKD-EPI)NonAf POC Glucometer 184 190 203 Random Glucose Calcium Phosphorus Magnesium Total Bilirubin AST ALT Alkaline Phosphatase Creatine Kinase Creatine Kinase Index CK-MB (CK-2) Troponin I Total Protein Albumin 08/27/18 08/27/18 08/27/18 05:30 05:30 05:30 WBC 14.3 H RBC 3.05 L Hgb 8.9 L Hct 26.9 L MCV 88.2 MCH 29.1 MCHC 33.0 RDW 14.2 Plt Count 199 MPV 8.8 Sodium 137 Potassium 3.8 Chloride 101 Carbon Dioxide 32 Anion Gap 4 L BUN 31 H Creatinine 1.2 Est GFR (CKD-EPI)AfAm 48.40 Est GFR (CKD-EPI)NonAf 41.76 POC Glucometer Random Glucose 165 H Calcium 8.2 L Phosphorus 3.3 Magnesium 2.5 H Total Bilirubin 0.4 AST 34 ALT 18 Alkaline Phosphatase 67 Creatine Kinase 472 H Creatine Kinase Index 0.4 CK-MB (CK-2) 1.9 Troponin I 0.02 Total Protein 5.3 L Albumin 2.3 L 08/27/18 06:37 WBC RBC Hgb Hct MCV MCH MCHC RDW Plt Count MPV Sodium Potassium Chloride Carbon Dioxide Anion Gap BUN Creatinine Est GFR (CKD-EPI)AfAm Est GFR (CKD-EPI)NonAf POC Glucometer 174 Random Glucose Calcium Phosphorus Magnesium Total Bilirubin AST ALT Alkaline Phosphatase Creatine Kinase Creatine Kinase Index CK-MB (CK-2) Troponin I Total Protein Albumin Active Medications Generic Name Dose Route Start Last Admin Trade Name Freq PRN Reason Stop Dose Admin Acetaminophen 650 mg 08/24/18 21:54 Tylenol - PO Q4H PRN PAIN LEVEL 1-5 Albuterol/Ipratropium 1 amp 08/26/18 10:40 Duoneb - NEB Q6H PRN SHORTNESS OF BREATH Amiodarone HCl 100 mg 08/25/18 10:00 08/27/18 09:23 Cordarone - PO 100 mg DAILY [facility] Administration Docusate Sodium 100 mg 08/25/18 14:00 08/27/18 05:47 Colace - PO 100 mg TID [facility] Administration Enoxaparin Sodium 40 mg 08/27/18 10:00 08/27/18 09:24 Lovenox - SQ 40 mg DAILY [facility] Administration Propofol 1,000,000 mcg in 100 mls @ 2.023 mls/hr 08/26/18 10:15 08/26/18 12: 00 Diprivan - IVPB Not Given TITR [facility] Protocol 5 MCG/KG/MIN Lactated Ringer's 1,000 mls @ 42 mls/hr 08/26/18 11:29 08/26/18 18:45 Lactated Ringers Solution IV 42 mls/hr ASDIR [facility] Administration Methimazole 5 mg 08/25/18 10:00 08/27/18 09:23 Tapazole - PO 5 mg DAILY [facility] Administration Metoprolol Tartrate 50 mg 08/24/18 22:00 08/27/18 05:47 Lopressor - PO Not Given TID [facility] Morphine Sulfate 1 mg 08/25/18 13:56 Morphine Sulfate IVPUSH Q4H PRN PAIN LEVEL 6-10 Morphine Sulfate 4 mg 08/26/18 10:08 Morphine Injection - IVPUSH 08/27/18 10:07 Q4H PRN PAIN LEVEL 1-5 Non-Formulary Medication 4 gm 08/24/18 20:47 Ipratropium/Albuterol Sulfate [Combivent Respimat 20-100 Mcg] IH TID PRN SHORT OF BREATH/WHEEZING Polyethylene Glycol 17 gm 08/25/18 13:55 Miralax (For Daily Use) - PO DAILY PRN CONSTIPATION Rosuvastatin Calcium 5 mg 08/24/18 22:00 08/26/18 23:59 Crestor - PO 5 mg HS [facility] Administration Senna 2 tab 08/25/18 22:00 08/26/18 22:30 Senna - PO 2 tab HS [facility] Administration Tiotropium [place] 1 puff 08/25/18 10:00 08/26/18 12:01 Spiriva Respimat IH Not Given DAILY [facility] ASSESSMENT/PLAN: 83 yof with PMHx of pafib, CAD s/p pRCA BETHANIE 09/2011 for unstable angina (CP/EDWARDS) and later BETHANIE to pLAD and mLAD 10/2011, HTN, HL, diastolic dysfunction, 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 -Mechanical Fall -Acute traumatic right intertrochanteric hip fracture s/p right cephalomedullary nail fixation -Post operative acute respiratory insufficiency -Acute anemia, suspect from surgical blood loss +/- hemodilution. -PAF on eliquis -CAD s/p pRCA BETHANIE 09/2011 and later BETHANIE to pLAD/mLAD 10/2011 -Diastolic dysfunction -HTN -HLD -Mild AR/MR -Mild pulmonary HTN -MGUS -Pulmonary HTN -COPD -IGT -Gastritis/GERD -Multinodular goiter Plan: S/p solumedrol in ICU. Extubated, respiratory status stable, though poor effort. Encourage incentive spirometry, OOB, discussed with PT, to eval patient today. D/c morphine, Oxycodone/tylenol prn for pain. Discussed with Dr. Foster, plan was to resume eliquis today, Given drop in h/h, trend h/h for 24 hours. Will resume eliquis in 24 hours if h/h stable and no bleed concerns. Lovenox with close monitoring. Bowel regimen. Cardiology input noted. 2D echo noted. Continue amiodarone/metoprolol/statin. D/c IVF. Resume torsemide in 24-48 hours if po intake improves and no concerns. Euvolumic currently. Continue methimazole, correct to home dosing every other day. Discussed with PT, to eval patient today. DVTPPXper orthopedic. Dispo agree with transfer to medical floor. Possible d/c to SNF in 48 hours if h/h stable, no new concerns and disposition arranged. Plan discussed with nursing, and social work. Total critical care time spent 36 min. Visit type - Emergency Visit Emergency Visit: Yes ED Registration Date: 08/24/18 Care time: The patient presented to the Emergency Department on the above date and was hospitalized for further evaluation of their emergent condition. - New Patient This patient is new to me today: No - Critical Care Critical Care patient: Yes Total Critical Care Time (in minutes): 36 Critical Care Statement: The care of this patient involved high complexity decision making to prevent further life threatening deterioration of the patient 's condition and/or to evaluate & treat vital organ system(s) failure or risk of failure.
[2018-08-27] MEDS ORDERED: oxyCODONE HCL 5 MG TABLET PO PRN (09:52)
--- NOTE | 2018-08-27 09:59 | PN ---
Teaching Attending Note Name of Resident: Monika Verma ATTENDING PHYSICIAN STATEMENT I saw and evaluated the patient. I reviewed the resident's note and discussed the case with the resident. I agree with the resident's findings and plan as documented. SUBJECTIVE: Patient seen and examined in the ICU. POD #1 from a right hip gamma nail. Extubated. Awake and alert. Mild discomfort at the surgical site. No Pressors. Intake & Output 08/24/18 08/25/18 08/26/18 08/27/18 23:59 23:59 23:59 23:59 Intake Total 1300 1976 Output Total 1100 1110 Balance 200 866 Weight 148 lb 11.2 oz Last Vital Signs Temp Pulse Resp BP Pulse Ox 98.4 F 55 L 20 126/48 L 100 08/27/18 08:00 08/27/18 08:00 08/27/18 08:00 08/27/18 08:00 08/27/18 09:00 Active Medications Acetaminophen (Tylenol -) 650 mg PO Q4H PRN PRN Reason: PAIN LEVEL 1-5 Albuterol/Ipratropium (Duoneb -) 1 amp NEB Q6H PRN PRN Reason: SHORTNESS OF BREATH Amiodarone HCl (Cordarone -) 100 mg PO DAILY [facility] Last Admin: 08/27/18 09:23 Dose: 100 mg Docusate Sodium (Colace -) 100 mg PO TID [facility] Last Admin: 08/27/18 05:47 Dose: 100 mg Enoxaparin Sodium (Lovenox -) 40 mg SQ DAILY [facility] Last Admin: 08/27/18 09:24 Dose: 40 mg Propofol (Diprivan -) 1,000,000 mcg in 100 mls @ 2.023 mls/hr IVPB TITR [facility]; Protocol Last Admin: 08/26/18 12:00 Dose: Not Given Methimazole (Tapazole -) 5 mg PO Q2D [facility] Metoprolol Tartrate (Lopressor -) 50 mg PO TID [facility] Last Admin: 08/27/18 05:47 Dose: Not Given Oxycodone HCl (Roxicodone -) 5 mg PO Q6H PRN PRN Reason: PAIN LEVEL 6-10 Polyethylene Glycol (Miralax (For Daily Use) -) 17 gm PO DAILY PRN PRN Reason: CONSTIPATION Rosuvastatin Calcium (Crestor -) 5 mg PO HS [facility] Last Admin: 08/26/18 23:59 Dose: 5 mg Senna (Senna -) 2 tab PO HS [facility] Last Admin: 08/26/18 22:30 Dose: 2 tab Tiotropium [place] (Spiriva Respimat) 1 puff IH DAILY [facility] Last Admin: 08/26/18 12:01 Dose: Not Given GENERAL: Extubated, awake and alert HEAD: Normal with no signs of trauma. EYES: Pupils equal, sclera anicteric, conjunctiva clear. No lid lag. EARS, NOSE, THROAT: Ears normal, nares patent, oropharynx clear without exudates. Moist mucous membranes. NECK: Normal range of motion, supple without lymphadenopathy, JVD, or masses. LUNGS: Diminished at the bases. No wheezes or crackles. HEART: Regular rate and rhythm, normal S1 and S2 without murmur, rub or gallop. ABDOMEN: Soft, nontender, not distended, normoactive bowel sounds, no guarding, no rebound, no masses. No hepatomegaly or splenomegaly. MUSCULOSKELETAL: Normal range of motion at all joints. No bony deformities or tenderness. No CVA tenderness. UPPER EXTREMITIES: 2+ pulses, warm, well-perfused. No cyanosis. No clubbing. Cap refill <2 seconds. No peripheral edema. LOWER EXTREMITIES: 2+ pulses, warm, well-perfused. No calf tenderness. No peripheral edema. NEUROLOGICAL: non-focal PSYCHIATRIC: appropriate SKIN: Warm, dry, normal turgor, no rashes or lesions noted. Laboratory Results - last 24 hr 08/26/18 08/26/18 08/27/18 11:35 17:12 00:28 WBC RBC Hgb Hct MCV MCH MCHC RDW Plt Count MPV Sodium Potassium Chloride Carbon Dioxide Anion Gap BUN Creatinine Est GFR (CKD-EPI)AfAm Est GFR (CKD-EPI)NonAf POC Glucometer 184 190 203 Random Glucose Calcium Phosphorus Magnesium Total Bilirubin AST ALT Alkaline Phosphatase Creatine Kinase Creatine Kinase Index CK-MB (CK-2) Troponin I Total Protein Albumin 08/27/18 08/27/18 08/27/18 05:30 05:30 05:30 WBC 14.3 H RBC 3.05 L Hgb 8.9 L Hct 26.9 L MCV 88.2 MCH 29.1 MCHC 33.0 RDW 14.2 Plt Count 199 MPV 8.8 Sodium 137 Potassium 3.8 Chloride 101 Carbon Dioxide 32 Anion Gap 4 L BUN 31 H Creatinine 1.2 Est GFR (CKD-EPI)AfAm 48.40 Est GFR (CKD-EPI)NonAf 41.76 POC Glucometer Random Glucose 165 H Calcium 8.2 L Phosphorus 3.3 Magnesium 2.5 H Total Bilirubin 0.4 AST 34 ALT 18 Alkaline Phosphatase 67 Creatine Kinase 472 H Creatine Kinase Index 0.4 CK-MB (CK-2) 1.9 Troponin I 0.02 Total Protein 5.3 L Albumin 2.3 L 08/27/18 06:37 WBC RBC Hgb Hct MCV MCH MCHC RDW Plt Count MPV Sodium Potassium Chloride Carbon Dioxide Anion Gap BUN Creatinine Est GFR (CKD-EPI)AfAm Est GFR (CKD-EPI)NonAf POC Glucometer 174 Random Glucose Calcium Phosphorus Magnesium Total Bilirubin AST ALT Alkaline Phosphatase Creatine Kinase Creatine Kinase Index CK-MB (CK-2) Troponin I Total Protein Albumin ASSESSMENT/PLAN: Acute Respiratory Insufficiency P AFib CAD S/P pRCA BETHANIE 09/2011 for unstable angina S/P BETHANIE to pLAD and mLAD 10/2011 HTN HPL Diastolic dysfunction Mild AR/MR Mild PHTN MGUS COPD IGT Gastritis/GERD Multinodular goiter Pancreatic cyst Kidney stones VTE prophylaxis Restart AC when cleared by Ortho O2 as needed to maintain saturation BD TX PRN Monitor off Systemic steroids Methimazole Floor Dr Tripp
[2018-08-27] MEDS ORDERED: ENOXAPARIN NA (PORCINE) 40 MG/0.4 ML DISP.SYRIN SQ SCH (10:00)
--- NOTE | 2018-08-27 10:10 | PN ---
Progress Note, Physician Chief Complaint: hip pain/frx History of Present Illness: was sob earlier, got treatment from the nurse and now it resolved no cp no palpit no syncope - Current Medication List Current Medications: Active Medications Acetaminophen (Tylenol -) 650 mg PO Q4H PRN PRN Reason: PAIN LEVEL 1-5 Albuterol/Ipratropium (Duoneb -) 1 amp NEB Q6H PRN PRN Reason: SHORTNESS OF BREATH Amiodarone HCl (Cordarone -) 100 mg PO DAILY [facility] Last Admin: 08/27/18 09:23 Dose: 100 mg Docusate Sodium (Colace -) 100 mg PO TID [facility] Last Admin: 08/27/18 05:47 Dose: 100 mg Enoxaparin Sodium (Lovenox -) 40 mg SQ DAILY [facility] Last Admin: 08/27/18 09:24 Dose: 40 mg Propofol (Diprivan -) 1,000,000 mcg in 100 mls @ 2.023 mls/hr IVPB TITR [facility]; Protocol Last Admin: 08/26/18 12:00 Dose: Not Given Methimazole (Tapazole -) 5 mg PO Q2D [facility] Metoprolol Tartrate (Lopressor -) 50 mg PO TID [facility] Last Admin: 08/27/18 05:47 Dose: Not Given Oxycodone HCl (Roxicodone -) 5 mg PO Q6H PRN PRN Reason: PAIN LEVEL 6-10 Polyethylene Glycol (Miralax (For Daily Use) -) 17 gm PO DAILY PRN PRN Reason: CONSTIPATION Rosuvastatin Calcium (Crestor -) 5 mg PO [facility] Last Admin: 08/26/18 23:59 Dose: 5 mg Senna (Senna -) 2 tab PO [facility] Last Admin: 08/26/18 22:30 Dose: 2 tab Tiotropium [place] (Spiriva Respimat) 1 puff IH DAILY [facility] Last Admin: 08/26/18 12:01 Dose: Not Given - Objective Vital Signs: Vital Signs Temperature 98.4 F 08/27/18 08:00 Pulse Rate 55 L 08/27/18 08:00 Respiratory Rate 20 08/27/18 08:00 Blood Pressure 126/48 L 08/27/18 08:00 O2 Sat by Pulse Oximetry (%) 100 08/27/18 09:00 Constitutional: Yes: Well Nourished, No Distress, Calm Cardiovascular: Yes: Regular Rate and Rhythm, S1, S2. No: JVD, Gallop, Murmur Respiratory: Yes: Regular, CTA Bilaterally (anteriorly (hip pain limits positioning)). No: Accessory Muscle Use, Rales Extremities: No: Cold Edema: No (SCDs) Neurological: Yes: Alert, Oriented Psychiatric: No: Agitated Labs: CBC, BMP 08/27/18 05:30 08/27/18 05:30 INR, PTT INR 1.29 (0.83-1.09) H 08/26/18 07:00 Assessment/Plan ecg: sr nl intervals no ischemic changes CXR 08/26: new L bases ? atx vs infiltrate with fluid echo 08/2018: nl lv/rv, lae, mod tr, mild phtn echo 07/2017: mild-mod decreased sys fn. EF may be underestimated due to afib rhythm. Nl rv size/fn. 1+ lae. mild-mod mr/tr. Echo 08/2015: Nl lv/rv. EF 65-70%. E to A reversal. Mild Lae. 1+ AR/MR. No RVSP Cath/PCI 09/2011: pRCA 80-90% -->BETHANIE, mLAD 60-70%, dLAD 60-70% + FFR, D1 mild diffuse disease Cath/PCI 10/2011: pLAD rota BETHANIE and mLAD rota BETHANIE. 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 fall , hip fracture: -s/p surgery 08/26. resume AC when ok per ortho. pafib: -in sr here, cont lopressor, amio -resume home eliquis once cleared by ortho chronic diastolic chf: -has appeared euvolemic, on home torsemide -echo unremarkable here -CXR yest with ? L base atx vs fluid -transient SOB earlier today--looks euvolemic still -rpt cxr cad - stable, no signs acs, no angina - cont statin, bb, ac htn: -bp controlled -cont bb
[2018-08-27] MEDS: TIOTROPIUM BROMIDE 2.5 MCG (SPIRIVA) RESPIMAT INHALER IH SCH (10:53)
--- NOTE | 2018-08-27 12:58 | PN ---
Progress Note (short form) - Note Progress Note: Anesthesiology Post-op POD#1 s/p IM femur nail under GA. Pt. was extubated last night after arrival to ICU and has been doing well since. She does c/o some pain today but this is managed with medications. Otherwise VSS, no anesthesia-related issues. 83 y.o. woman with stable post-op course. Continue management per primary team.
[2018-08-27 16:01] LABS: HEMATOCRIT 29.3 % (32.4-45.2); HEMOGLOBIN 9.3 GM/dL (10.7-15.3); MCH 28.7 pg (25.7-33.7); MCHC 31.8 g/dl (32.0-36.0); MEAN CELL VOLUME 90.4 fl (80-96); MEAN PLT VOLUME 9.2 fl (7.5-11.1); PLATELET COUNT 215 K/MM3 (134-434); RBC 3.24 M/mm3 (3.60-5.2); RDW 14.7 % (11.6-15.6); WHITE BLOOD COUNT 16.7 K/mm3 (4.0-10.0)
--- NOTE | 2018-08-27 20:34 | PN ---
Progress Note (short form) - Note Progress Note: ORTHOPEDIC SURGERY PROGRESS NOTE Department of Orthopedic Surgery SUBJECTIVE No acute events overnight. No complaints currently. Denies chest pain, shortness of breath, or calf pain. No nausea or vomiting. Tolerating oral intake. Pain control difficult overnight, but improving. SCD's were not connected when I walked into room. PHYSICAL EXAMINATION General: Alert, oriented, cooperative and no distress. Right Lower Extremity: Dressing intact; Skin intact, no lesions, rashes or ulcers noted. Muscle mass equal and symmetric to contralateral side. No atrophy noted. No masses or effusions noted. Mild tenderness to palpation over incision site. No tenderness in thigh. No calf tenderness. Compartments of the RLE soft and compressible. Full passive and active ROM of the knee and ankle, free from pain. EHL/TA/GS motor intact; SILT distally; 2+ DP pulses; Cap refill brisk. DVT Exam: No evidence of DVT seen on physical exam; No cords or calf tenderness ; No significant calf/ankle edema. Intake & Output 08/25/18 08/26/18 08/27/18 23:59 23:59 23:59 Intake Total 1300 1976 160 Output Total 1100 1110 Balance 200 866 160 Intake: IV 1636 saline lock 336 IVPB 100 Oral 1300 240 160 Output: Urine 1100 1090 Lucas 1100 870 Estimated Blood Loss 20 Other: Voiding Method Indwelling Catheter Diaper Diaper Bowel Movement No No Active Medications Generic Name Dose Route Start Last Admin Trade Name Freq PRN Reason Stop Dose Admin Acetaminophen 650 mg 08/24/18 21:54 08/27/18 10:55 Tylenol - PO 650 mg Q4H PRN Administration PAIN LEVEL 1-5 Albuterol/Ipratropium 1 amp 08/26/18 10:40 Duoneb - NEB Q6H PRN SHORTNESS OF BREATH Amiodarone HCl 100 mg 08/25/18 10:00 08/27/18 09:23 Cordarone - PO 100 mg DAILY [facility] Administration Docusate Sodium 100 mg 08/25/18 14:00 08/27/18 15:54 Colace - PO 100 mg TID [facility] Administration Enoxaparin Sodium 40 mg 08/27/18 10:00 08/27/18 09:24 Lovenox - SQ 40 mg DAILY [facility] Administration Methimazole 5 mg 08/29/18 10:00 Tapazole - PO Q2D [facility] Metoprolol Tartrate 50 mg 08/24/18 22:00 08/27/18 14:33 Lopressor - PO Not Given TID [facility] Oxycodone HCl 5 mg 08/27/18 09:52 08/27/18 10:53 Roxicodone - PO 5 mg Q6H PRN Administration PAIN LEVEL 6-10 Polyethylene Glycol 17 gm 08/25/18 13:55 Miralax (For Daily Use) - PO DAILY PRN CONSTIPATION Rosuvastatin Calcium 5 mg 08/24/18 22:00 08/26/18 23:59 Crestor - PO 5 mg HS [facility] Administration Senna 2 tab 08/25/18 22:00 08/26/18 22:30 Senna - PO 2 tab HS [facility] Administration Tiotropium [place] 1 puff 08/25/18 10:00 08/27/18 10:53 Spiriva Respimat IH 1 puff DAILY [facility] Administration Vital Signs (last) Temp Pulse Resp BP Pulse Ox 98.1 F 57 L 18 130/53 L 92 L 08/27/18 17:38 08/27/18 17:38 08/27/18 17:38 08/27/18 17:38 08/27/18 11:59 Laboratory (coagulation) PT with INR 15.30 SEC (9.7-13.0) H 08/26/18 07:00 Laboratory 08/27/18 15:30 08/27/18 05:30 ASSESSMENT AND PLAN Ms. Cartagena is an 83 year old female s/p Right hip IMN POD #1 - Pain control: Transition to oral pain medications, minimize narcotic use - DVT prophylaxis - Can start Eliquis from orthopedic standpoint. - Follow up H/H and transfuse when medically indicated. - Ice - Elevate HOB, encourage oral intake - Appreciate medical management (Nutrition optimization, decubitus precautions heel/sacrum) - Physical Therapy Daily - WBAT Bilateral LE - Dispo planning - Change dressing post op day 7 - D/C [place] post op day 14 - The patient may follow up in my office 1-2 weeks after discharge. Please make sure the patient gets X-rays at her outpatient rehab center of her right hip and pelvis the day before arriving to our office. Dell Foster, DO Orthopedic Surgery
[2018-08-27] MEDS: SENNOSIDES 8.6MG TABLET (FP) PO SCH (21:06)
[2018-08-27] MEDS: ROSUVASTATIN CA 5 MG TABLET (FP) PO SCH (21:07)
[2018-08-28] MEDS: DOCUSATE SODIUM 100 MG CAPSULE (FP) PO SCH ×3 (05:28→21:13)
[2018-08-28] MEDS: METOPROLOL TARTRATE 50 MG TABLET (FP) PO SCH ×3 (05:28→21:13)
[2018-08-28 07:20] LABS: HEMOGLOBIN 8.8 GM/dL (10.7-15.3); MCH 28.8 pg (25.7-33.7); MCHC 32.6 g/dl (32.0-36.0); MEAN CELL VOLUME 88.1 fl (80-96); MEAN PLT VOLUME 8.7 fl (7.5-11.1); PLATELET COUNT 226 K/MM3 (134-434); RBC 3.06 M/mm3 (3.60-5.2); RDW 14.1 % (11.6-15.6); WHITE BLOOD COUNT 13.4 K/mm3 (4.0-10.0)
[2018-08-28 07:35] LABS: CALCIUM 8.1 mg/dL (8.5-10.1); POTASSIUM 3.7 mmol/L (3.5-5.1)
--- NOTE | 2018-08-28 08:18 | PN ---
Progress Note, Physician Chief Complaint: hip frx History of Present Illness: feels comfortable. no sob at present--continues to have occasional mild breathlessness. mild cough no cp, palpit - Current Medication List Current Medications: Active Medications Acetaminophen (Tylenol -) 650 mg PO Q4H PRN PRN Reason: PAIN LEVEL 1-5 Last Admin: 08/27/18 10:55 Dose: 650 mg Albuterol/Ipratropium (Duoneb -) 1 amp NEB Q6H PRN PRN Reason: SHORTNESS OF BREATH Amiodarone HCl (Cordarone -) 100 mg PO DAILY [facility] Last Admin: 08/27/18 09:23 Dose: 100 mg Apixaban (Eliquis -) 5 mg PO BID [facility] Docusate Sodium (Colace -) 100 mg PO TID [facility] Last Admin: 08/28/18 05:28 Dose: 100 mg Methimazole (Tapazole -) 5 mg PO Q2D [facility] Metoprolol Tartrate (Lopressor -) 50 mg PO TID [facility] Last Admin: 08/28/18 05:28 Dose: 50 mg Oxycodone HCl (Roxicodone -) 5 mg PO Q6H PRN PRN Reason: PAIN LEVEL 6-10 Last Admin: 08/27/18 10:53 Dose: 5 mg Polyethylene Glycol (Miralax (For Daily Use) -) 17 gm PO DAILY PRN PRN Reason: CONSTIPATION Rosuvastatin Calcium (Crestor -) 5 mg PO [facility] Last Admin: 08/27/18 21:07 Dose: 5 mg Senna (Senna -) 2 tab PO [facility] Last Admin: 08/27/18 21:06 Dose: 2 tab Tiotropium [place] (Spiriva Respimat) 1 puff IH DAILY [facility] Last Admin: 08/27/18 10:53 Dose: 1 puff - Objective Vital Signs: Vital Signs Temperature 98.1 F 08/28/18 05:36 Pulse Rate 63 08/28/18 05:36 Respiratory Rate 18 08/28/18 05:36 Blood Pressure 138/52 L 08/28/18 05:36 O2 Sat by Pulse Oximetry (%) 100 08/27/18 21:00 Constitutional: Yes: Well Nourished, No Distress, Calm Cardiovascular: Yes: Regular Rate and Rhythm, S1, S2. No: Gallop, Murmur Respiratory: Yes: Regular, CTA Bilaterally. No: Accessory Muscle Use, Rales, Wheezes Extremities: No: Cold Edema: No (SCDs) Neurological: Yes: Alert, Oriented Psychiatric: No: Agitated Labs: CBC, BMP 08/28/18 06:25 08/28/18 06:25 INR, PTT INR 1.29 (0.83-1.09) H 08/26/18 07:00 Assessment/Plan ecg: sr nl intervals no ischemic changes CXR 08/26: new L bases ? atx vs infiltrate with fluid CXR 08/28: L base better aerated, mild R infrahilar incr markings persist echo 08/2018: nl lv/rv, lae, mod tr, mild phtn echo 07/2017: mild-mod decreased sys fn. EF may be underestimated due to afib rhythm. Nl rv size/fn. 1+ lae. mild-mod mr/tr. Echo 08/2015: Nl lv/rv. EF 65-70%. E to A reversal. Mild Lae. 1+ AR/MR. No RVSP Cath/PCI 09/2011: pRCA 80-90% -->BETHANIE, mLAD 60-70%, dLAD 60-70% + FFR, D1 mild diffuse disease Cath/PCI 10/2011: pLAD rota BETHANIE and mLAD rota BETHANIE. 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 fall , hip fracture: -s/p surgery 08/26 pafib: -in sr here, cont lopressor, amio per prior mgmt plan (sees KENIA verdugo at [facility] and confirms she has f/u) -back on eliquis now chronic diastolic chf: -has appeared euvolemic. torsemide initially given at home dose (20 qod), now held -echo unremarkable here -CXR and exam not c/w chf. -resume home torsemide cad - stable, no signs acs, no angina - cont statin, bb, ac htn: -bp controlled -cont bb D/C TELEMETRY
[2018-08-28] MEDS ORDERED: PT OWN MED DRAWER 7, Y5N ONE (09:11)
[2018-08-28] MEDS: AMIODARONE HCL 200 MG TABLET (FP) PO SCH (09:13)
[2018-08-28] MEDS: TIOTROPIUM BROMIDE 2.5 MCG (SPIRIVA) RESPIMAT INHALER IH SCH (09:14)
[2018-08-28] MEDS ORDERED: TORSEMIDE 20 MG TABLET (FP) PO SCH ×2 (10:00→10:30)
[2018-08-28] MEDS ORDERED: APIXABAN 5 MG TABLET PO SCH ×2 (10:00→22:00)
[2018-08-28] MEDS ORDERED: ALBUTEROL SO4 2.5/IPRATROPIUM 0.5 INH SOL 3 ML VIAL.NEB. NEB PRN (10:49)
--- NOTE | 2018-08-28 10:55 | PN ---
Physical Exam: SUBJECTIVE: Patient seen and examined, breathing improved, denies pain, no new complaints. OBJECTIVE: Vital Signs Period Temp Pulse Resp BP Sys/[place] Pulse Ox Last 24 Hr 97.6 F-98.3 F 54-66 2-20 120-149/52-69 92-100 Intake & Output 08/25/18 08/26/18 08/27/18 08/28/18 23:59 23:59 23:59 23:59 Intake Total 1300 1976 160 Output Total 1100 1110 Balance 200 866 160 GENERAL: sitting in bed, mild respiratory distress, able to speak in full sentences CVS:S1s2 irregular Chest: few bibasilar rales and scattered wheezing, improved air entry Abdomen:Soft, obese, NT Extremities: right thigh dressing clean, no edema or ecchymosis, pos DP pulses Psych; awake, co-operative Incentive spirometry at bedside upto 200 Laboratory Results - last 24 hr 08/27/18 08/27/18 08/28/18 11:49 15:30 06:25 WBC 16.7 H 13.4 H RBC 3.24 L 3.06 L Hgb 9.3 L 8.8 L Hct 29.3 L 27.0 L MCV 90.4 88.1 MCH 28.7 28.8 MCHC 31.8 L 32.6 RDW 14.7 14.1 Plt Count 215 226 MPV 9.2 8.7 Sodium Potassium Chloride Carbon Dioxide Anion Gap BUN Creatinine Est GFR (CKD-EPI)AfAm Est GFR (CKD-EPI)NonAf POC Glucometer 149 Random Glucose Calcium 08/28/18 06:25 WBC RBC Hgb Hct MCV MCH MCHC RDW Plt Count MPV Sodium 136 Potassium 3.7 Chloride 100 Carbon Dioxide 30 Anion Gap 6 L BUN 32 H Creatinine 1.0 Est GFR (CKD-EPI)AfAm 60.33 Est GFR (CKD-EPI)NonAf 52.06 POC Glucometer Random Glucose 164 H Calcium 8.1 L Active Medications Generic Name Dose Route Start Last Admin Trade Name Freq PRN Reason Stop Dose Admin Acetaminophen 650 mg 08/24/18 21:54 08/27/18 10:55 Tylenol - PO 650 mg Q4H PRN Administration PAIN LEVEL 1-5 Albuterol/Ipratropium 1 amp 08/26/18 10:40 Duoneb - NEB Q6H PRN SHORTNESS OF BREATH Albuterol/Ipratropium 1 amp 08/28/18 10:49 Duoneb - NEB Q6H PRN SHORTNESS OF BREATH Amiodarone HCl 100 mg 08/25/18 10:00 08/28/18 09:13 Cordarone - PO 100 mg DAILY [facility] Administration Apixaban 5 mg 08/28/18 10:00 08/28/18 09:13 Eliquis - PO 5 mg BID [facility] Administration Docusate Sodium 100 mg 08/25/18 14:00 08/28/18 05:28 Colace - PO 100 mg TID [facility] Administration Methimazole 5 mg 08/29/18 10:00 Tapazole - PO Q2D [facility] Metoprolol Tartrate 50 mg 08/24/18 22:00 08/28/18 05:28 Lopressor - PO 50 mg TID [facility] Administration Oxycodone HCl 5 mg 08/27/18 09:52 08/27/18 10:53 Roxicodone - PO 5 mg Q6H PRN Administration PAIN LEVEL 6-10 Polyethylene Glycol 17 gm 08/25/18 13:55 Miralax (For Daily Use) - PO DAILY PRN CONSTIPATION Rosuvastatin Calcium 5 mg 08/24/18 22:00 08/27/18 21:07 Crestor - PO 5 mg HS [facility] Administration Senna 2 tab 08/25/18 22:00 08/27/18 21:06 Senna - PO 2 tab HS [facility] Administration Tiotropium [place] 1 puff 08/25/18 10:00 08/28/18 09:14 Spiriva Respimat IH 1 puff DAILY [facility] Administration Torsemide 20 mg 08/28/18 10:30 Demadex - PO DAILY [facility] CXR today results and images reviewed ASSESSMENT/PLAN: 83 yof with PMHx of pafib, CAD s/p pRCA BETHANIE 09/2011 for unstable angina (CP/EDWARDS) and later BETHANIE to pLAD and mLAD 10/2011, HTN, HL, diastolic dysfunction, 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 -Mechanical Fall -Acute traumatic right intertrochanteric hip fracture s/p right cephalomedullary nail fixation -Post operative acute respiratory insufficiency -Acute anemia, suspect from surgical blood loss +/- hemodilution. 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 Add nebs prn. Prednisone 40 mg PO x 1. CXR noted. Cardiology input noted. Resume torsemide home dose 20 mg daily (confirmed with patient's ), monitor volume status. Encourage incentive spirometry, OOB, Oxycodone/tylenol prn for pain. H/h plateaued, no concerns for bleed currently, resume eliquis. . Bowel regimen. 2D echo noted. Continue amiodarone/metoprolol/statin. Continue methimazole, correct to home dosing every other day. PT eval noted, for SNF, discussed with CM [id number] resume eliquis as above d/c telemetry dispo to SNF in 24-48 hours if continues to improve and disposition arranged. Plan discussed with patient, nursing, all questions answered. Visit type - Emergency Visit Emergency Visit: Yes ED Registration Date: 08/24/18 Care time: The patient presented to the Emergency Department on the above date and was hospitalized for further evaluation of their emergent condition. - New Patient This patient is new to me today: No - Critical Care Critical Care patient: No - Discharge Referral Referred to [facility] Med [facility] No
[2018-08-28] MEDS ORDERED: predniSONE 20 MG TABLET (UD) PO ONE (11:15)
--- NOTE | 2018-08-28 11:33 | PN ---
Progress Note (short form) - Note Progress Note: Resting in NAD. Some dry cough. No CP. No acute events overnight. Intake & Output 08/25/18 08/26/18 08/27/18 08/28/18 23:59 23:59 23:59 23:59 Intake Total 1300 1976 160 Output Total 1100 1110 Balance 200 866 160 Last Vital Signs Temp Pulse Resp BP Pulse Ox 98.1 F 63 18 138/52 L 100 08/28/18 05:36 08/28/18 05:36 08/28/18 05:36 08/28/18 05:36 08/27/18 21:00 Active Medications Acetaminophen (Tylenol -) 650 mg PO Q4H PRN PRN Reason: PAIN LEVEL 1-5 Last Admin: 08/27/18 10:55 Dose: 650 mg Albuterol/Ipratropium (Duoneb -) 1 amp NEB Q6H PRN PRN Reason: SHORTNESS OF BREATH Amiodarone HCl (Cordarone -) 100 mg PO DAILY [facility] Last Admin: 08/28/18 09:13 Dose: 100 mg Apixaban (Eliquis -) 5 mg PO BID [facility] Last Admin: 08/28/18 09:13 Dose: 5 mg Docusate Sodium (Colace -) 100 mg PO TID [facility] Last Admin: 08/28/18 05:28 Dose: 100 mg Methimazole (Tapazole -) 5 mg PO Q2D [facility] Metoprolol Tartrate (Lopressor -) 50 mg PO TID [facility] Last Admin: 08/28/18 05:28 Dose: 50 mg Oxycodone HCl (Roxicodone -) 5 mg PO Q6H PRN PRN Reason: PAIN LEVEL 6-10 Last Admin: 08/27/18 10:53 Dose: 5 mg Polyethylene Glycol (Miralax (For Daily Use) -) 17 gm PO DAILY PRN PRN Reason: CONSTIPATION Rosuvastatin Calcium (Crestor -) 5 mg PO [facility] Last Admin: 08/27/18 21:07 Dose: 5 mg Senna (Senna -) 2 tab PO [facility] Last Admin: 08/27/18 21:06 Dose: 2 tab Tiotropium [place] (Spiriva Respimat) 1 puff IH DAILY [facility] Last Admin: 08/28/18 09:14 Dose: 1 puff Torsemide (Demadex -) 20 mg PO DAILY [facility] Last Admin: 08/28/18 11:13 Dose: 20 mg GENERAL: awake and alert, NAD HEAD: Normal with no signs of trauma. EYES: Pupils equal, sclera anicteric, conjunctiva clear. No lid lag. EARS, NOSE, THROAT: Ears normal, nares patent, oropharynx clear without exudates. Moist mucous membranes. NECK: Normal range of motion, supple without lymphadenopathy, JVD, or masses. LUNGS: Diminished at the bases. No wheezes or crackles. HEART: Regular rate and rhythm, normal S1 and S2 without murmur, rub or gallop. ABDOMEN: Soft, nontender, not distended, normoactive bowel sounds, no guarding, no rebound, no masses. No hepatomegaly or splenomegaly. MUSCULOSKELETAL: Normal range of motion at all joints. No bony deformities or tenderness. No CVA tenderness. UPPER EXTREMITIES: 2+ pulses, warm, well-perfused. No cyanosis. No clubbing. Cap refill <2 seconds. No peripheral edema. LOWER EXTREMITIES: 2+ pulses, warm, well-perfused. No calf tenderness. No peripheral edema. NEUROLOGICAL: non-focal PSYCHIATRIC: appropriate SKIN: Warm, dry, normal turgor, no rashes or lesions noted. Laboratory Results - last 24 hr 08/27/18 08/27/18 08/28/18 11:49 15:30 06:25 WBC 16.7 H 13.4 H RBC 3.24 L 3.06 L Hgb 9.3 L 8.8 L Hct 29.3 L 27.0 L MCV 90.4 88.1 MCH 28.7 28.8 MCHC 31.8 L 32.6 RDW 14.7 14.1 Plt Count 215 226 MPV 9.2 8.7 Sodium Potassium Chloride Carbon Dioxide Anion Gap BUN Creatinine Est GFR (CKD-EPI)AfAm Est GFR (CKD-EPI)NonAf POC Glucometer 149 Random Glucose Calcium 08/28/18 06:25 WBC RBC Hgb Hct MCV MCH MCHC RDW Plt Count MPV Sodium 136 Potassium 3.7 Chloride 100 Carbon Dioxide 30 Anion Gap 6 L BUN 32 H Creatinine 1.0 Est GFR (CKD-EPI)AfAm 60.33 Est GFR (CKD-EPI)NonAf 52.06 POC Glucometer Random Glucose 164 H Calcium 8.1 L ASSESSMENT/PLAN: Acute Respiratory Insufficiency P AFib CAD S/P pRCA BETHANIE 09/2011 for unstable angina S/P BETHANIE to pLAD and mLAD 10/2011 HTN HPL Diastolic dysfunction Mild AR/MR Mild PHTN MGUS COPD IGT Gastritis/GERD Multinodular goiter Pancreatic cyst Kidney stones Incentive Spirometry VTE prophylaxis Restart AC when cleared by Ortho O2 as needed to maintain saturation BD TX PRN Monitor off Systemic steroids Methimazole Dr Tripp
--- NOTE | 2018-08-28 11:53 | PN ---
Progress Note (short form) - Note Progress Note: ORTHOPEDIC SURGERY PROGRESS NOTE Department of Orthopedic Surgery SUBJECTIVE No acute events overnight. No complaints currently. Denies chest pain, shortness of breath, or calf pain. No nausea or vomiting. Tolerating oral intake. Pain controlled. SCDs were on and working appropriately. PHYSICAL EXAMINATION General: Alert, oriented, cooperative and no distress. Right Lower Extremity: Dressing intact; Skin intact, no lesions, rashes or ulcers noted. Muscle mass equal and symmetric to contralateral side. No atrophy noted. No masses or effusions noted. Mild tenderness to palpation over incision site. No tenderness in thigh. No calf tenderness. Compartments of the RLE soft and compressible. Full passive and active ROM of the knee and ankle, free from pain. EHL/TA/GS motor intact; SILT distally; 2+ DP pulses; Cap refill brisk. DVT Exam: No evidence of DVT seen on physical exam; No cords or calf tenderness ; No significant calf/ankle edema. Intake & Output 08/26/18 08/27/18 08/28/18 23:59 23:59 23:59 Intake Total 1976 160 Output Total 1110 Balance 866 160 Intake: IV 1636 saline lock 336 IVPB 100 Oral 240 160 Output: Urine 1090 Lucas 870 Estimated Blood Loss 20 Other: Voiding Method Diaper Diaper Diaper Bowel Movement No Active Medications Generic Name Dose Route Start Last Admin Trade Name Freq PRN Reason Stop Dose Admin Acetaminophen 650 mg 08/24/18 21:54 08/27/18 10:55 Tylenol - PO 650 mg Q4H PRN Administration PAIN LEVEL 1-5 Albuterol/Ipratropium 1 amp 08/28/18 10:49 Duoneb - NEB Q6H PRN SHORTNESS OF BREATH Amiodarone HCl 100 mg 08/25/18 10:00 08/28/18 09:13 Cordarone - PO 100 mg DAILY [facility] Administration Apixaban 5 mg 08/28/18 10:00 08/28/18 09:13 Eliquis - PO 5 mg BID [facility] Administration Docusate Sodium 100 mg 08/25/18 14:00 08/28/18 05:28 Colace - PO 100 mg TID [facility] Administration Methimazole 5 mg 08/29/18 10:00 Tapazole - PO Q2D [facility] Metoprolol Tartrate 50 mg 08/24/18 22:00 08/28/18 05:28 Lopressor - PO 50 mg TID [facility] Administration Oxycodone HCl 5 mg 08/27/18 09:52 08/27/18 10:53 Roxicodone - PO 5 mg Q6H PRN Administration PAIN LEVEL 6-10 Polyethylene Glycol 17 gm 08/25/18 13:55 Miralax (For Daily Use) - PO DAILY PRN CONSTIPATION Rosuvastatin Calcium 5 mg 08/24/18 22:00 08/27/18 21:07 Crestor - PO 5 mg HS [facility] Administration Senna 2 tab 08/25/18 22:00 08/27/18 21:06 Senna - PO 2 tab HS [facility] Administration Tiotropium [place] 1 puff 08/25/18 10:00 08/28/18 09:14 Spiriva Respimat IH 1 puff DAILY [facility] Administration Torsemide 20 mg 08/28/18 10:30 08/28/18 11:13 Demadex - PO 20 mg DAILY [facility] Administration Vital Signs (last) Temp Pulse Resp BP Pulse Ox 98.1 F 63 18 138/52 L 100 08/28/18 05:36 08/28/18 05:36 08/28/18 05:36 08/28/18 05:36 08/27/18 21:00 Laboratory (coagulation) PT with INR 15.30 SEC (9.7-13.0) H 08/26/18 07:00 Laboratory 08/28/18 06:25 08/28/18 06:25 ASSESSMENT AND PLAN Ms. Cartagena is an 83 year old female s/p Right hip IMN POD #2 - Pain control: Transition to oral pain medications, minimize narcotic use - DVT prophylaxis - Follow up H/H and transfuse when medically indicated. - Ice - Elevate HOB, encourage oral intake - Appreciate medical management (Nutrition optimization, decubitus precautions heel/sacrum) - Physical Therapy Daily - WBAT Bilateral LE - Dispo planning - Change dressing post op day 7 - D/C [place] post op day 14 - The patient may follow up in my office 1-2 weeks after discharge. Please make sure the patient gets X-rays at her outpatient rehab center of her right hip and pelvis the day before arriving to our office. Dell Foster, DO Orthopedic Surgery
[2018-08-28] MEDS ORDERED: POLYETHYLENE GLYCOL 3350 119 GM BTL PO PRN (12:05)
[2018-08-28] MEDS ORDERED: ACETAMINOPHEN 325 MG TABLET (FP) PO PRN (12:05)
[2018-08-28] MEDS ORDERED: oxyCODONE HCL 5 MG TABLET PO PRN (12:05)
[2018-08-28] MEDS ORDERED: SENNOSIDES 8.6MG TABLET (FP) PO SCH (22:00)
[2018-08-28] MEDS ORDERED: ROSUVASTATIN CA 5 MG TABLET (FP) PO SCH (22:00)
[2018-08-29] MEDS: DOCUSATE SODIUM 100 MG CAPSULE (FP) PO SCH ×3 (05:34→21:24)
[2018-08-29] MEDS: METOPROLOL TARTRATE 50 MG TABLET (FP) PO SCH ×3 (05:34→21:26)
[2018-08-29] MEDS ORDERED: ALBUTEROL SO4 2.5/IPRATROPIUM 0.5 INH SOL 3 ML VIAL.NEB. NEB PRN (06:53)
[2018-08-29] MEDS ORDERED: POLYETHYLENE GLYCOL 3350 119 GM BTL PO PRN (06:53)
[2018-08-29] MEDS ORDERED: oxyCODONE HCL 5 MG TABLET PO PRN (06:53)
[2018-08-29] MEDS ORDERED: ACETAMINOPHEN 325 MG TABLET (FP) PO PRN (06:53)
[2018-08-29 09:05] LABS: BASO % 0.1 % (0-2.0); EOS % 0.2 % (0-4.5); HEMATOCRIT 28.7 % (32.4-45.2); HEMOGLOBIN 9.5 GM/dL (10.7-15.3); LYMPH % 9.6 % (8-40); MCH 29.1 pg (25.7-33.7); MCHC 33.2 g/dl (32.0-36.0); MEAN CELL VOLUME 87.6 fl (80-96); MEAN PLT VOLUME 8.4 fl (7.5-11.1); MONO % 8.2 % (3.8-10.2); NEUT % 81.9 % (42.8-82.8); PLATELET COUNT 277 K/MM3 (134-434); RBC 3.28 M/mm3 (3.60-5.2); RDW 14.2 % (11.6-15.6); WHITE BLOOD COUNT 10.6 K/mm3 (4.0-10.0)
[2018-08-29 09:25] LABS: CALCIUM 8.4 mg/dL (8.5-10.1); POTASSIUM 3.5 mmol/L (3.5-5.1)
[2018-08-29] MEDS: AMIODARONE HCL 200 MG TABLET (FP) PO SCH (09:39)
[2018-08-29] MEDS: APIXABAN 5 MG TABLET PO SCH ×2 (09:39→21:24)
[2018-08-29] MEDS: TIOTROPIUM BROMIDE 2.5 MCG (SPIRIVA) RESPIMAT INHALER IH SCH (09:48)
[2018-08-29] MEDS ORDERED: METHIMAZOLE 5 MG TABLET (FP) PO SCH ×3 (10:00)
[2018-08-29] MEDS ORDERED: AMIODARONE HCL 200 MG TABLET (FP) PO SCH (10:00)
[2018-08-29] MEDS ORDERED: TIOTROPIUM BROMIDE 2.5 MCG (SPIRIVA) RESPIMAT INHALER IH SCH (10:00)
[2018-08-29] MEDS ORDERED: TORSEMIDE 20 MG TABLET (FP) PO SCH (10:00)
[2018-08-29] MEDS: TORSEMIDE 20 MG TABLET (FP) PO SCH (10:25)
--- NOTE | 2018-08-29 10:32 | PN ---
Progress Note (short form) - Note Progress Note: PULMONARY Still with some shortness of breath and occasional cough. No fevers or chills. Vital Signs Period Temp Pulse Resp BP Sys/Padilla Pulse Ox Last 24 Hr 97.6 F-99.4 F 52-64 18-18 134-167/49-92 94-100 Gen: NAD at rest Heart: RRR Lung: scattered wheeze Abd: soft, nontender Ext: no edema CBC, BMP 08/29/18 08:11 08/29/18 08:11 Active Medications Acetaminophen (Tylenol -) 650 mg PO Q4H PRN PRN Reason: PAIN LEVEL 1-5 Albuterol/Ipratropium (Duoneb -) 1 amp NEB Q6H PRN PRN Reason: SHORTNESS OF BREATH Amiodarone HCl (Cordarone -) 100 mg PO DAILY [facility] Last Admin: 08/29/18 09:39 Dose: 100 mg Apixaban (Eliquis -) 5 mg PO BID [facility] Last Admin: 08/29/18 09:39 Dose: 5 mg Docusate Sodium (Colace -) 100 mg PO TID [facility] Methimazole (Tapazole -) 5 mg PO Q2D [facility] Last Admin: 08/29/18 09:40 Dose: 5 mg Metoprolol Tartrate (Lopressor -) 50 mg PO TID [facility] Oxycodone HCl (Roxicodone -) 5 mg PO Q6H PRN PRN Reason: PAIN LEVEL 6-10 Polyethylene Glycol (Miralax (For Daily Use) -) 17 gm PO DAILY PRN PRN Reason: CONSTIPATION Rosuvastatin Calcium (Crestor -) 5 mg PO HS [facility] Senna (Senna -) 2 tab PO HS [facility] Tiotropium [place] (Spiriva Respimat) 2 puff IH DAILY [facility] Last Admin: 08/29/18 09:48 Dose: 2 puff Torsemide (Demadex -) 20 mg PO DAILY [facility] Last Admin: 08/29/18 10:25 Dose: 20 mg A/P R Hip Fracture s/p Gamma Nail COPD CAD Paroxysmal Atrial Fibrillation LV Diastolic Dysfunction HTN Hyperlipidemia - inhaled bronchodilators standing and PRN - O2 to keep SpO2 >90% - incentive spirometry - pain control - DVT prophylaxis
[2018-08-29] MEDS ORDERED: ALBUTEROL SO4 0.083% IH SOL 2.5 MG/3 ML VIAL.NEB. NEB PRN (10:33)
[2018-08-29] MEDS: ALBUTEROL SO4 0.083% IH SOL 2.5 MG/3 ML VIAL.NEB. NEB SCH ×3 (11:15→20:09)
--- NOTE | 2018-08-29 13:55 | PN ---
Progress Note (short form) - Note Progress Note: ORTHOPEDIC SURGERY PROGRESS NOTE Department of Orthopedic Surgery SUBJECTIVE No acute events overnight. No complaints currently. Denies chest pain, shortness of breath, or calf pain. No nausea or vomiting. Tolerating oral intake. Pain controlled. SCDs were on and working appropriately. PHYSICAL EXAMINATION General: Alert, oriented, cooperative and no distress. Right Lower Extremity: Dressing intact; Skin intact, no lesions, rashes or ulcers noted. Mild serosanguinous fluid on aquacel dressing, will change today. Muscle mass equal and symmetric to contralateral side. No atrophy noted. No masses or effusions noted. Mild tenderness to palpation over incision site. No tenderness in thigh. No calf tenderness. Compartments of the RLE soft and compressible. Full passive and active ROM of the knee and ankle, free from pain. EHL/TA/GS motor intact; SILT distally; 2+ DP pulses; Cap refill brisk. DVT Exam: No evidence of DVT seen on physical exam; No cords or calf tenderness ; No significant calf/ankle edema. Intake & Output 08/27/18 08/28/18 08/29/18 23:59 23:59 23:59 Intake Total 160 640 200 Balance 160 640 200 Intake: Oral 160 640 200 Other: Voiding Method Diaper Incontinent Bedpan # Unmeasured Voids Lucas 2 1 Bowel Movement No Yes # Bowel Movements 1 Active Medications Generic Name Dose Route Start Last Admin Trade Name Freq PRN Reason Stop Dose Admin Acetaminophen 650 mg 08/29/18 06:53 Tylenol - PO Q4H PRN PAIN LEVEL 1-5 Albuterol Sulfate 1 amp 08/29/18 10:33 Ventolin 0.083% Nebulizer Soln - NEB Q4H PRN SHORT OF BREATH/WHEEZING Albuterol Sulfate 1 amp 08/29/18 12:00 08/29/18 11:15 Ventolin 0.083% Nebulizer Soln - NEB 1 amp RQID [facility] Administration Amiodarone HCl 100 mg 08/29/18 10:00 08/29/18 09:39 Cordarone - PO 100 mg DAILY [facility] Administration Apixaban 5 mg 08/29/18 10:00 08/29/18 09:39 Eliquis - PO 5 mg BID [facility] Administration Docusate Sodium 100 mg 08/29/18 14:00 08/29/18 13:36 Colace - PO 100 mg TID [facility] Administration Methimazole 5 mg 08/29/18 10:00 08/29/18 09:40 Tapazole - PO 5 mg Q2D [facility] Administration Metoprolol Tartrate 50 mg 08/29/18 14:00 08/29/18 13:36 Lopressor - PO 50 mg TID [facility] Administration Oxycodone HCl 5 mg 08/29/18 06:53 Roxicodone - PO Q6H PRN PAIN LEVEL 6-10 Polyethylene Glycol 17 gm 08/29/18 06:53 08/29/18 11:33 Miralax (For Daily Use) - PO 17 gm DAILY PRN Administration CONSTIPATION Rosuvastatin Calcium 5 mg 08/29/18 22:00 Crestor - PO HS [facility] Senna 2 tab 08/29/18 22:00 Senna - PO HS [facility] Tiotropium [place] 2 puff 08/29/18 10:00 08/29/18 09:48 Spiriva Respimat IH 2 puff DAILY [facility] Administration Torsemide 20 mg 08/29/18 10:00 08/29/18 10:25 Demadex - PO 20 mg DAILY [facility] Administration Vital Signs (last) Temp Pulse Resp BP Pulse Ox 97.7 F 52 L 18 152/58 L 94 L 08/29/18 09:00 08/29/18 09:00 08/29/18 09:00 08/29/18 09:00 08/29/18 09:00 Laboratory (coagulation) PT with INR 15.30 SEC (9.7-13.0) H 08/26/18 07:00 Laboratory 08/29/18 08:11 08/29/18 08:11 ASSESSMENT AND PLAN Ms. Cartagena is an 83 year old female s/p Right hip IMN POD #3 - Pain control: Transition to oral pain medications, minimize narcotic use - DVT prophylaxis - Ice - Elevate HOB, encourage oral intake - Appreciate medical management (Nutrition optimization, decubitus precautions heel/sacrum) - Physical Therapy Daily - WBAT Bilateral LE - Dispo planning - Change aquacel dressing again post op day 7 - D/C [place] post op day 14 - The patient may follow up in my office 1-2 weeks after discharge. Please make sure the patient gets X-rays at her outpatient rehab center of her right hip and pelvis the day before arriving to our office. Dell Foster, DO Orthopedic Surgery
[2018-08-29] MEDS ORDERED: BISACODYL 10 MG SUPP.RECT RC ONE (14:04)
--- NOTE | 2018-08-29 14:19 | PN ---
Physical Exam: SUBJECTIVE: Patient seen and examined, right hip pain better. at bedside , reports constipation. Patient denies any dyspnea, nausea, vomiting, abdominal pain, dyspnea or urinary symptoms. OBJECTIVE: Vital Signs Period Temp Pulse Resp BP Sys/Padilla Pulse Ox Last 24 Hr 97.6 F-99.4 F 52-64 18-18 134-167/49-92 94-100 Intake & Output 08/26/18 08/27/18 08/28/18 08/29/18 23:59 23:59 23:59 23:59 Intake Total 1976 160 640 200 Output Total 1110 Balance 866 160 640 200 GENERAL: The patient is awake, alert, and fully oriented, in no acute distress. HEAD: Normal with no signs of trauma. EYES: PERRL, extraocular movements intact, sclera anicteric, conjunctiva clear. No ptosis. ENT: Ears normal, nares patent, oropharynx clear without exudates, moist mucous membranes. NECK: Trachea midline, full range of motion, supple. LUNGS: Breath sounds equal, clear to auscultation bilaterally, no wheezes, no crackles, no accessory muscle use. HEART: Regular rate and rhythm, S1, S2 without murmur, rub or gallop. ABDOMEN: Soft, nontender, nondistended, normoactive bowel sounds, no guarding, no rebound, no hepatosplenomegaly, no masses. EXTREMITIES: 2+ pulses, warm, well-perfused, no edema. NEUROLOGICAL: Cranial nerves II through XII grossly intact. Normal speech, gait not observed. PSYCH: Normal mood, normal affect. SKIN: Warm, dry, normal turgor, no rashes or lesions noted Laboratory Results - last 24 hr 08/29/18 08/29/18 08:11 08:11 WBC 10.6 H RBC 3.28 L Hgb 9.5 L Hct 28.7 L MCV 87.6 MCH 29.1 MCHC 33.2 RDW 14.2 Plt Count 277 D MPV 8.4 Absolute Neuts (auto) 8.7 H Neutrophils % 81.9 Lymphocytes % 9.6 D Monocytes % 8.2 Eosinophils % 0.2 D Basophils % 0.1 Nucleated RBC % 0 Sodium 139 Potassium 3.5 Chloride 98 Carbon Dioxide 35 H Anion Gap 6 L BUN 32 H Creatinine 1.0 Est GFR (CKD-EPI)AfAm 60.33 Est GFR (CKD-EPI)NonAf 52.06 Random Glucose 146 H Calcium 8.4 L Active Medications Generic Name Dose Route Start Last Admin Trade Name Freq PRN Reason Stop Dose Admin Acetaminophen 650 mg 08/29/18 06:53 Tylenol - PO Q4H PRN PAIN LEVEL 1-5 Albuterol Sulfate 1 amp 08/29/18 10:33 Ventolin 0.083% Nebulizer Soln - NEB Q4H PRN SHORT OF BREATH/WHEEZING Albuterol Sulfate 1 amp 08/29/18 12:00 08/29/18 11:15 Ventolin 0.083% Nebulizer Soln - NEB 1 amp RQID [facility] Administration Amiodarone HCl 100 mg 08/29/18 10:00 08/29/18 09:39 Cordarone - PO 100 mg DAILY [facility] Administration Apixaban 5 mg 08/29/18 10:00 08/29/18 09:39 Eliquis - PO 5 mg BID [facility] Administration Bisacodyl 10 mg 08/29/18 14:04 Dulcolax Suppository - [place] 08/29/18 14:05 ONCE ONE Docusate Sodium 100 mg 08/29/18 14:00 08/29/18 13:36 Colace - PO 100 mg TID [facility] Administration Methimazole 5 mg 08/29/18 10:00 08/29/18 09:40 Tapazole - PO 5 mg Q2D [facility] Administration Metoprolol Tartrate 50 mg 08/29/18 14:00 08/29/18 13:36 Lopressor - PO 50 mg TID [facility] Administration Oxycodone HCl 5 mg 08/29/18 06:53 Roxicodone - PO Q6H PRN PAIN LEVEL 6-10 Polyethylene Glycol 17 gm 08/29/18 06:53 08/29/18 11:33 Miralax (For Daily Use) - PO 17 gm DAILY PRN Administration CONSTIPATION Rosuvastatin Calcium 5 mg 08/29/18 22:00 Crestor - PO HS [facility] Senna 2 tab 08/29/18 22:00 Senna - PO HS [facility] Tiotropium [place] 2 puff 08/29/18 10:00 08/29/18 09:48 Spiriva Respimat IH 2 puff DAILY [facility] Administration Torsemide 20 mg 08/29/18 10:00 08/29/18 10:25 Demadex - PO 20 mg DAILY [facility] Administration ASSESSMENT/PLAN: 83 yof with PMHx of pafib, CAD s/p pRCA BETHANIE 09/2011 for unstable angina (CP/[facility]) and later BETHANIE to pLAD and mLAD 10/2011, HTN, HL, diastolic dysfunction, 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 -Mechanical Fall -Acute traumatic right intertrochanteric hip fracture s/p right cephalomedullary nail fixation -Post operative acute respiratory insufficiency -Acute anemia, suspect from surgical blood loss +/- hemodilution. -Leucocytosis, suspect steroid induced -PAF on eliquis -CAD s/p pRCA BETHANIE 09/2011 and later BETHANIE to pLAD/mLAD 10/2011 -Diastolic dysfunction -HTN -HLD -Mild AR/MR -Mild pulmonary HTN -MGUS -Pulmonary HTN -COPD -IGT -Gastritis/GERD -Multinodular goiter Plan: Respiratory status improved. Nebs/O2 supp prn, encourage incentive spirometry. CXR noted. Cardiology/pulmonary input noted. Continue torsemide, monitor volume status. Encourage incentive spirometry, OOB, Oxycodone/tylenol prn for pain. h/h stable, continue eliquis. Aggressive bowel regimen, encourage OOB. 2D echo noted. Continue amiodarone/metoprolol/statin/methimazole. PT eval noted, for SNF, discussed with JAMARI GOODMAN eliquis dispo to SNF in 24 hours if continues to improve and disposition arranged. Plan discussed with patient, nursing, and at bedside in detail, all questions answered. Visit type - Emergency Visit Emergency Visit: Yes ED Registration Date: 08/24/18 Care time: The patient presented to the Emergency Department on the above date and was hospitalized for further evaluation of their emergent condition. - New Patient This patient is new to me today: No - Critical Care Critical Care patient: No - Discharge Referral Referred to [facility] No
[2018-08-29] MEDS ORDERED: PT OWN MED DRAWER 7, Y5N ONE (21:00)
[2018-08-29] MEDS ORDERED: ROSUVASTATIN CA 5 MG TABLET (FP) PO SCH (22:00)
[2018-08-29] MEDS ORDERED: SENNOSIDES 8.6MG TABLET (FP) PO SCH (22:00)
[2018-08-30] MEDS: DOCUSATE SODIUM 100 MG CAPSULE (FP) PO SCH ×2 (05:41→14:07)
[2018-08-30] MEDS: METOPROLOL TARTRATE 50 MG TABLET (FP) PO SCH ×2 (05:41→14:06)
[2018-08-30] MEDS: ALBUTEROL SO4 0.083% IH SOL 2.5 MG/3 ML VIAL.NEB. NEB SCH ×3 (07:20→15:23)
[2018-08-30] MEDS ORDERED: POLYETHYLENE GLYCOL 3350 119 GM BTL PO ONE (07:34)
[2018-08-30] MEDS: AMIODARONE HCL 200 MG TABLET (FP) PO SCH (09:41)
[2018-08-30] MEDS: APIXABAN 5 MG TABLET PO SCH (09:41)
[2018-08-30] MEDS: TORSEMIDE 20 MG TABLET (FP) PO SCH (09:42)
[2018-08-30] MEDS: TIOTROPIUM BROMIDE 2.5 MCG (SPIRIVA) RESPIMAT INHALER IH SCH (09:42)
--- NOTE | 2018-08-30 10:53 | PN ---
Progress Note (short form) - Note Progress Note: No acute events overnight. Still with some dry cough. No CP. Intake & Output 08/27/18 08/28/18 08/29/18 08/30/18 23:59 23:59 23:59 23:59 Intake Total 160 640 320 200 Balance 160 640 320 200 Last Vital Signs Temp Pulse Resp BP Pulse Ox 98.9 F 63 20 151/67 94 L 08/30/18 05:00 08/30/18 05:00 08/30/18 05:00 08/30/18 05:00 08/29/18 22:00 Active Medications Acetaminophen (Tylenol -) 650 mg PO Q4H PRN PRN Reason: PAIN LEVEL 1-5 Albuterol Sulfate (Ventolin 0.083% Nebulizer Soln -) 1 amp NEB Q4H PRN PRN Reason: SHORT OF BREATH/WHEEZING Albuterol Sulfate (Ventolin 0.083% Nebulizer Soln -) 1 amp NEB RQID [facility] Last Admin: 08/30/18 07:20 Dose: 1 amp Amiodarone HCl (Cordarone -) 100 mg PO DAILY [facility] Last Admin: 08/30/18 09:41 Dose: 100 mg Apixaban (Eliquis -) 5 mg PO BID [facility] Last Admin: 08/30/18 09:41 Dose: 5 mg Docusate Sodium (Colace -) 100 mg PO TID [facility] Last Admin: 08/30/18 05:41 Dose: 100 mg Methimazole (Tapazole -) 5 mg PO Q2D [facility] Last Admin: 08/29/18 09:40 Dose: 5 mg Metoprolol Tartrate (Lopressor -) 50 mg PO TID [facility] Last Admin: 08/30/18 05:41 Dose: 50 mg Oxycodone HCl (Roxicodone -) 5 mg PO Q6H PRN PRN Reason: PAIN LEVEL 6-10 Polyethylene Glycol (Miralax (For Daily Use) -) 17 gm PO DAILY PRN PRN Reason: CONSTIPATION Last Admin: 08/29/18 11:33 Dose: 17 gm Rosuvastatin Calcium (Crestor -) 5 mg PO [facility] Last Admin: 08/29/18 22:34 Dose: 5 mg Senna (Senna -) 2 tab PO [facility] Last Admin: 08/29/18 21:24 Dose: 2 tab Tiotropium [place] (Spiriva Respimat) 2 puff IH DAILY [facility] Last Admin: 08/30/18 09:42 Dose: 2 puff Torsemide (Demadex -) 20 mg PO DAILY [facility] Last Admin: 08/30/18 09:42 Dose: 20 mg GENERAL: awake and alert, NAD HEAD: Normal with no signs of trauma. EYES: Pupils equal, sclera anicteric, conjunctiva clear. No lid lag. EARS, NOSE, THROAT: Ears normal, nares patent, oropharynx clear without exudates. Moist mucous membranes. NECK: Normal range of motion, supple without lymphadenopathy, JVD, or masses. LUNGS: Diminished at the bases. No wheezes or crackles. HEART: Regular rate and rhythm, normal S1 and S2 without murmur, rub or gallop. ABDOMEN: Soft, nontender, not distended, normoactive bowel sounds, no guarding, no rebound, no masses. No hepatomegaly or splenomegaly. MUSCULOSKELETAL: Normal range of motion at all joints. No bony deformities or tenderness. No CVA tenderness. UPPER EXTREMITIES: 2+ pulses, warm, well-perfused. No cyanosis. No clubbing. Cap refill <2 seconds. No peripheral edema. LOWER EXTREMITIES: 2+ pulses, warm, well-perfused. No calf tenderness. No peripheral edema. NEUROLOGICAL: non-focal PSYCHIATRIC: appropriate SKIN: Warm, dry, normal turgor, no rashes or lesions noted. ASSESSMENT/PLAN: Acute Respiratory Insufficiency P AFib CAD S/P pRCA BETHANIE 09/2011 for unstable angina S/P BETHANIE to pLAD and mLAD 10/2011 HTN HPL Diastolic dysfunction Mild AR/MR Mild PHTN MGUS COPD IGT Gastritis/GERD Multinodular goiter Pancreatic cyst Kidney stones Incentive Spirometry VTE prophylaxis Eliquis O2 as needed to maintain saturation BD TX PRN Monitor off Systemic steroids Methimazole Dr Tripp
--- NOTE | 2018-08-30 11:03 | DS ---
Physical Exam: SUBJECTIVE: Patient seen and examined, denies any pain, breathing better, no new complaints. OBJECTIVE: Vital Signs Period Temp Pulse Resp BP Sys/Padilla Pulse Ox Last 24 Hr 98.2 F-98.9 F 51-68 20-20 131-151/50-68 94 Intake & Output 08/27/18 08/28/18 08/29/18 08/30/18 23:59 23:59 23:59 23:59 Intake Total 160 640 320 200 Balance 160 640 320 200 PHYSICAL EXAM GENERAL: sitting in bed, mild respiratory distress, able to speak in full sentences CVS:S1s2 irregular Chest: few bibasilar rales and scattered wheezing, improved air entry Abdomen:Soft, obese, NT Extremities: right thigh dressing clean, no edema or ecchymosis, pos DP pulses Psych; awake, co-operative Incentive spirometry at bedside upto 300 LABS Laboratory Last Values WBC 10.6 K/mm3 (4.0-10.0) H 08/29/18 08:11 RBC 3.28 M/mm3 (3.60-5.2) L 08/29/18 08:11 Hgb 9.5 GM/dL (10.7-15.3) L 08/29/18 08:11 Hct 28.7 % (32.4-45.2) L 08/29/18 08:11 MCV 87.6 fl (80-96) 08/29/18 08:11 MCH 29.1 pg (25.7-33.7) 08/29/18 08:11 MCHC 33.2 g/dl (32.0-36.0) 08/29/18 08:11 RDW 14.2 % (11.6-15.6) 08/29/18 08:11 Plt Count 277 K/MM3 (134-434) D 08/29/18 08:11 MPV 8.4 fl (7.5-11.1) 08/29/18 08:11 Absolute Neuts (auto) 8.7 K/mm3 (1.5-8.0) H 08/29/18 08:11 Neutrophils % 81.9 % (42.8-82.8) 08/29/18 08:11 Lymphocytes % 9.6 % (8-40) D 08/29/18 08:11 Monocytes % 8.2 % (3.8-10.2) 08/29/18 08:11 Eosinophils % 0.2 % (0-4.5) D 08/29/18 08:11 Basophils % 0.1 % (0-2.0) 08/29/18 08:11 Nucleated RBC % 0 % (0-0) 08/29/18 08:11 PT with INR 15.30 SEC (9.7-13.0) H 08/26/18 07:00 INR 1.29 (0.83-1.09) H 08/26/18 07:00 PTT (Actin FS) 32.8 SECONDS (25.2-36.5) 08/24/18 17:15 Sodium 139 mmol/L (136-145) 08/29/18 08:11 Potassium 3.5 mmol/L (3.5-5.1) 08/29/18 08:11 Chloride 98 mmol/L (98-107) 08/29/18 08:11 Carbon Dioxide 35 mmol/L (21-32) H 08/29/18 08:11 Anion Gap 6 MMOL/L (8-16) L 08/29/18 08:11 BUN 32 mg/dL (7-18) H 08/29/18 08:11 Creatinine 1.0 mg/dL (0.55-1.3) 08/29/18 08:11 Est GFR (CKD-EPI)AfAm 60.33 08/29/18 08:11 Est GFR (CKD-EPI)NonAf 52.06 08/29/18 08:11 POC Glucometer 149 UNITS (80-120) 08/27/18 11:49 Random Glucose 146 mg/dL (74-106) H 08/29/18 08:11 Calcium 8.4 mg/dL (8.5-10.1) L 08/29/18 08:11 Phosphorus 3.3 mg/dL (2.5-4.9) 08/27/18 05:30 Magnesium 2.5 mg/dL (1.8-2.4) H 08/27/18 05:30 Total Bilirubin 0.4 mg/dL (0.2-1) 08/27/18 05:30 AST 34 U/L (15-37) 08/27/18 05:30 ALT 18 U/L (13-61) 08/27/18 05:30 Alkaline Phosphatase 67 U/L (45-117) 08/27/18 05:30 Creatine Kinase 472 U/L (26-192) H 08/27/18 05:30 Creatine Kinase Index 0.4 % (0.0-5.0) 08/27/18 05:30 CK-MB (CK-2) 1.9 ng/mL (0.5-3.6) 08/27/18 05:30 Troponin I 0.02 ng/ml (0.00-0.05) 08/27/18 05:30 Total Protein 5.3 g/dl (6.4-8.2) L 08/27/18 05:30 Albumin 2.3 g/dl (3.4-5.0) L 08/27/18 05:30 Blood Type O NEGATIVE 08/24/18 17:15 Antibody Screen Negative 08/24/18 17:15 CT head: There is no evidence of acute intracranial hemorrhage, mass lesions or infarctions. There is a mild degree of diffuse cerebral atrophy with sulcal widening and ventricular dilatation. There is no evidence of fracture or acute bony pathology. IMPRESSION: No evidence of acute intracranial pathology Right hip/pelvis xray 08/24: IMPRESSION: Comminuted intratrochanteric fracture of the right femur. Right hip/Pelvis Xray 08/26 Single view of the pelvis and 2 views of the right hip reveal a right hip fracture stabilization with a gamma nail procedure. There is soft tissue air and john. The other bones are intact. Correlation recommended CXR 08/28: Since 08/26/2018, the left base is better aerated. There is still some increased right infrahilar markings present. Endotracheal tube has been removed. There are degenerative spine and shoulder changes with evidence of previous right shoulder surgery. 2D echo: Normal LV size/thickness/function Normal RV size and function, mildly dilated left atrium Trace MR, moderate TR, Mild pul HTN,.Trace Aortic regurgitation HOSPITAL COURSE: Date of Admission:08/24/18 Date of Discharge: 08/30/18 Minutes to complete discharge: 40 Discharge Summary Reason For Visit: FRACTURE OF HIP Current Active Problems Hip fracture (Acute) Hospital Course: 83 yof with PMHx of pafib, CAD s/p pRCA BETHANIE 09/2011 for unstable angina (CP/EDWARDS) and later BETHANIE to pLAD and mLAD 10/2011, HTN, HL, diastolic dysfunction, Mild AR /MR, mild pHTN, MGUS, COPD, IGT, gastritis/GERD, multinodular goiter, pancreatic cyst, kidney stones admitted with fall and right intertrochanteric fracture. Cardiology was consulted for pre-operative risk stratification and she had 2 D echo as above. She had right cephalomedullary nail fixation on . She was admitted to ICU post operatively for delayed extubation given her h/ o COPD and for respiratory status monitoring. She was rapidly extubated in the ICU within a few hours post op with no concerns. She had drop in her hemoglobin post op which stabilized around 9 with no gross concerns for bleed. She was resumed on her eliquis. She was evaluated by physical therapy and will be discharged to rehab in stable condition. Condition: Stable - Instructions Diet, Activity, Other Instructions: You were admitted with hip fracture, had surgical repair. You were monitored after surgery in ICU for 24 hours. You were seen by semiconductor processing group leader and elementary school librarian and will be disharged to rehab. MEDICATIONS: Continue home medications as before Pain medications and bowel regimen added. take narcotics only when needed, taper as symptoms improve. Do not take if drowsy, dizzy or sleepy. No driving, operating heavy machinery or taking important decisions alone while on these medications INSTRUCTIONS: - Ice - Elevate hed of bed, encourage oral intake - Appreciate medical management (Nutrition optimization, decubitus precautions heel/sacrum) - Physical Therapy Daily - Weight bearing as tolerated bilateral lower extremities - Change aquacel dressing again post op day 7 (which will be 09/02/2018) - Discontinue [place] post operative day 14 - Follow up with orthopedic Dr. Foster in 1-2 weeks after discharge. Please make sure the patient gets X-rays at her outpatient rehab center of her right hip and pelvis the day before arriving to the orthopedic office. -Weigh yourself daily, notify your doctor or elementary school librarian if weight gain > 3 lbs in 2 days. -Aggressive incentive spirometry 10 times every hour as able, when awake. FOLLOW UP: Blood work CBC (complete blood panel) and BMP (basic metabolic panel) in 1 week at the rehab. Orthopedic follow up in 1-2 weeks, .Please make sure the patient gets X-rays at her outpatient rehab center of her right hip and pelvis the day before arriving to the orthopedic office. PCP in 1 week of discharge from rehab. Discuss outpatient pulmonary referral Endocrinology follow up for monitoring thyroid function and methimazole. If you notice any fevers, chills, worsening pain, trouble breathing or any new concerns, please call 911 or come to the ED. Referrals: Selvin Rios MD [Staff Physician] - Kalpesh Thao MD [Staff Physician] - Dell Foster DO [Staff Physician] - 1 Week Marvin Cooper MD, MD [Staff Physician] - Disposition: NURSING HOME FACILITY - Home Medications Comprehensive Discharge Medication List: Ambulatory Orders Methimazole 5 mg PO Q2D 11/20/13 Apixaban [Eliquis] 5 mg PO BID 01/15/16 Amiodarone HCl 100 mg PO DAILY #30 tablet 07/20/17 Metoprolol Tartrate [Lopressor -] 50 mg PO TID 14 Days #42 tablet 07/20/17 Torsemide 20 mg PO DAILY 08/25/18 Acetaminophen [Tylenol .Regular Strength -] 650 mg PO Q4H PRN tablet 08/30/18 Albuterol 0.083% Nebulizer Narda [Ventolin 0.083% Nebulizer Soln -] 1 amp NEB Q4H PRN amp 08/30/18 Docusate Sodium [Colace -] 100 mg PO TID capsule 08/30/18 Polyethylene Glycol 3350 [Miralax 119 gm Btl -] 17 gm PO DAILY PRN bottle 08/30 Rosuvastatin Calcium [Crestor] 5 mg PO HS 08/30/18 Sennosides [Senna -] 2 tab PO HS tablet 08/30/18 Tiotropium [place] [Spiriva Respimat] 2 puff IH DAILY inhaler 08/30/18 oxyCODONE HCL [Roxicodone -] 5 mg PO Q6H PRN #5 tablet MDD 20 mg 08/30/18 This patient is new to me today: No Emergency Visit: Yes ED Registration Date: 08/24/18 Care time: The patient presented to the Emergency Department on the above date and was hospitalized for further evaluation of their emergent condition. Critical Care patient: No - Discharge Referral Referred to [facility] No
--- NOTE | 2018-08-30 14:42 | PN ---
Progress Note (short form) - Note Progress Note: s: no cp sob palps dizzy o: Vital Signs Period Temp Pulse Resp BP Sys/Padilla Pulse Ox Last 24 Hr 98.2 F-98.9 F 51-63 20-20 131-151/50-67 94-94 NAD, no jvd rrr s1s2 no mrg cta bl no le e/c/c abd nt nd pos bs no jaundice diaphoresis pos dp pt Current Medications Generic Name Dose Route Start Last Admin Trade Name Freq PRN Reason Stop Dose Admin Acetaminophen 650 mg 08/29/18 06:53 Tylenol - PO Q4H PRN PAIN LEVEL 1-5 Albuterol Sulfate 1 amp 08/29/18 10:33 Ventolin 0.083% Nebulizer Soln - NEB Q4H PRN SHORT OF BREATH/WHEEZING Albuterol Sulfate 1 amp 08/29/18 12:00 08/30/18 11:20 Ventolin 0.083% Nebulizer Soln - NEB 1 amp RQID RICKEY Administration Amiodarone HCl 100 mg 08/29/18 10:00 08/30/18 09:41 Cordarone - PO 100 mg DAILY RICKEY Administration Apixaban 5 mg 08/29/18 10:00 08/30/18 09:41 Eliquis - PO 5 mg BID RICKEY Administration Docusate Sodium 100 mg 08/29/18 14:00 08/30/18 14:07 Colace - PO 100 mg TID RICKEY Administration Methimazole 5 mg 08/29/18 10:00 08/29/18 09:40 Tapazole - PO 5 mg Q2D RICKEY Administration Metoprolol Tartrate 50 mg 08/29/18 14:00 08/30/18 14:06 Lopressor - PO 50 mg TID RICKEY Administration Oxycodone HCl 5 mg 08/29/18 06:53 Roxicodone - PO Q6H PRN PAIN LEVEL 6-10 Polyethylene Glycol 17 gm 08/29/18 06:53 08/29/18 11:33 Miralax (For Daily Use) - PO 17 gm DAILY PRN Administration CONSTIPATION Rosuvastatin Calcium 5 mg 08/29/18 22:00 08/29/18 22:34 Crestor - PO 5 mg HS RICKEY Administration Senna 2 tab 08/29/18 22:00 08/29/18 21:24 Senna - PO 2 tab HS RICKEY Administration Tiotropium [place] 2 puff 08/29/18 10:00 08/30/18 09:42 Spiriva Respimat IH 2 puff DAILY RICKEY Administration Torsemide 20 mg 08/29/18 10:00 08/30/18 09:42 Demadex - PO 20 mg DAILY RICKEY Administration CBC, BMP 08/29/18 08:11 08/29/18 08:11 ecg: sr nl intervals no ischemic changes echo 08/2018: nl lv/rv, lae, mod tr, mild phtn echo 07/2017: mild-mod decreased sys fn. EF may be underestimated due to afib rhythm. Nl rv size/fn. 1+ lae. mild-mod mr/tr. Echo 08/2015: Nl lv/rv. EF 65-70%. E to A reversal. Mild Lae. 1+ AR/MR. No RVSP Cath/PCI 09/2011: pRCA 80-90% -->BETHANIE, mLAD 60-70%, dLAD 60-70% + FFR, D1 mild diffuse disease Cath/PCI 10/2011: pLAD rota BETHANIE and mLAD rota BETHANIE. 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 fall , hip fracture: -s/p surgery 08/26 pafib: -in sr here, cont lopressor, amio per prior mgmt plan (sees KENIA verdugo at [facility] and confirms she has f/u) -back on eliquis now chronic diastolic chf: -has appeared euvolemic. torsemide initially given at home dose (20 qod), now held -echo unremarkable here -CXR and exam not c/w chf. -resume home torsemide cad - stable, no signs acs, no angina - cont statin, bb, ac htn: -bp controlled -cont bb cardiac love stable for dc
[2018-08-30 15:44] VITALS: BP 137/53; PULSE 64; TEMP 99
== END 2018-08-30 15:53 | DRG 481 ==
LOC: JER 16:00 → JERBED 21:03 → J6S 08-25 03:56 → JICU 08-26 10:25 → J4S 08-27 13:34 → J6S 08-29 06:52
PROVIDERS: ADMIT Internal Medicine; ATTEND Hospitalist
PROC: 0QS606Z Reposition Right Upper Femur with Intramedullary Internal Fixation Device, Open Approach (ICD-10-PCS; principal; 2018-08-26 08:00)
DX: S72.144A Nondisplaced intertrochanteric fracture of right femur, initial encounter for closed fracture (principal); K86.2 Cyst of pancreas; I50.32 Chronic diastolic (congestive) heart failure; D62 Acute posthemorrhagic anemia; J95.89 Other postprocedural complications and disorders of respiratory system, not elsewhere classified; S72.091A Other fracture of head and neck of right femur, initial encounter for closed fracture; J44.9 Chronic obstructive pulmonary disease, unspecified; E78.00 Pure hypercholesterolemia, unspecified; I10 Essential (primary) hypertension; K21.9 Gastro-esophageal reflux disease without esophagitis; K29.70 Gastritis, unspecified, without bleeding; I25.10 Atherosclerotic heart disease of native coronary artery without angina pectoris; E05.90 Thyrotoxicosis, unspecified without thyrotoxic crisis or storm; I27.20 Pulmonary hypertension, unspecified; I48.0 Paroxysmal atrial fibrillation; D47.2 Monoclonal gammopathy; N20.0 Calculus of kidney; D72.828 Other elevated white blood cell count; I11.0 Hypertensive heart disease with heart failure; E04.2 Nontoxic multinodular goiter; I08.0 Rheumatic disorders of both mitral and aortic valves; Y92.098 Other place in other non-institutional residence as the place of occurrence of the external cause; W01.0XXA Fall on same level from slipping, tripping and stumbling without subsequent striking against object, initial encounter; Z87.442 Personal history of urinary calculi; Y83.8 Other surgical procedures as the cause of abnormal reaction of the patient, or of later complication, without mention of misadventure at the time of the procedure
CPT/HCPCS: 36415; 70450-TC; 71045-TC-FY; 73523-TC-FY; 73552-TC-RT-FY; 76000-TC-FY; 80048; 80053; 82550; 82553; 82962; 83735; 84100; 84484; 85025; 85027; 85610; 85730; 86850; 86900; 86901; 93005; 93010; 93306-TC; 94002; 94010; 94640; 97116-GP; 97162-GP; 99283-25